=== PATIENT | female | born 1955 | race African-American/Black ===

== ENCOUNTER 2020-09-27 12:32 | Emergency (ER) | payer MEDICARE, SELFPAY ==
--- NOTE | 2020-09-27 12:40 | ED.SKABFB ---
HPI - Skin/Abscess/Foreign Bdy General Chief complaint: Skin/Abscess/Foreign Body Stated complaint: Rash on Neck Time Seen by Provider: 09/27/20 12:46 Source: patient and RN notes reviewed Mode of arrival: ambulatory Limitations: no limitations History of Present Illness HPI narrative: 65-year-old female presents to the [facility] with complaints of a rash left neck/ shoulder area since Sunday. This morning. Has used multiple treatments with no relief. Has had shingles in the past and states it feels very much the same. States the location prior on the same side down near her groin area. Denies fevers. Related Data Home Medications Medication Instructions Recorded Confirmed apixaban [Eliquis] 5 mg PO BID 09/27/20 09/27/20 celecoxib 200 mg PO DAILY 09/27/20 09/27/20 furosemide 20 mg PO DAILY PRN 09/27/20 09/27/20 omeprazole 20 mg PO DAILY 09/27/20 09/27/20 quinapril-hydrochlorothiazide 2 tablet PO DAILY 09/27/20 09/27/20 rosuvastatin 10 mg PO DAILY 09/27/20 09/27/20 Allergies Allergy/AdvReac Type Severity Reaction Status Date / Time No Known Allergies Allergy Verified 09/27/20 12:48 Review of Systems Review of Systems: Narrative: CONSTITUTIONAL: Denies fever, chills, or sweats. EYES: Denies visual changes, redness, or discharge. CARDIOVASCULAR: Denies chest pain, palpitations, or edema. RESPIRATORY: Denies cough or dyspnea. SKIN: Reports painful rash to the base of left neck into the clavicle area. Denies itching. MUSCULOSKELETAL: Denies back pain, joint pain, or myalgia. NEUROLOGIC: Denies headache, numbness, or weakness. PSYCHIATRIC: Denies anxiety or depression. All other systems reviewed are negative, except as documented in HPI. [facility] Past Medical History Medical History (Updated 09/27/20 @ 16:59 by Priya Goldberg) High cholesterol Hypertension Comments At the time of my signature, I reviewed and agree with the nursing past medical, surgical, social, and family history. There is no relevant family history pertinent to the patient complaint. Exam Narrative: Exam Narrative: GENERAL: This is a well-nourished, well-developed patient, in no apparent distress. HEAD: normocephalic, atraumatic. EYES: PERRL. Sclera clear/white. Vision is grossly intact. EARS: External ears normal NECK: Neck supple, non-tender without lymphadenopathy, masses or thyromegaly. CARDIOVASCULAR: Regular rate and rhythm without murmurs, gallops, or rubs. RESPIRATORY: Clear to auscultation. Breath sounds equal bilaterally. No wheezes, rales, or rhonchi. GASTROINTESTINAL: Abdomen soft, non-tender, nondistended. Bowel sounds are active. No hepato-splenomegaly, or palpable masses. No guarding. SKIN: warm, intact with blistery lesions/ rash. Otherwise good texture and turgor. NEURO: awake, alert, and oriented to person, place and time. There were no obvious focal neurologic abnormalities. EXTREMITIES: No joint tenderness, effusion, or edema noted. BACK: Nontender without deformity. Skin: Full body images: 1. Raised blistery rash patient describes it as painful Course Vital Signs Vital signs: Vital Signs Temperature 97.5 F L 09/27/20 12:54 Pulse Rate 67 09/27/20 12:54 Respiratory Rate 18 09/27/20 12:54 Blood Pressure 149/69 H 09/27/20 12:54 Pulse Oximetry 100 09/27/20 12:54 Temperature 97.5 F L 09/27/20 12:54 Pulse Rate 67 09/27/20 12:54 Respiratory Rate 18 09/27/20 12:54 Blood Pressure 149/69 H 09/27/20 12:54 Pulse Oximetry 100 09/27/20 12:54 Reviewed MDM - Skin/Abscess/Foreign Bdy MDM Narrative Medical decision making narrative: Discharge instructions reviewed with patient, as well as provided in writing per nursing staff. The instructions also include specific and strict return/GO TO THE ER as well as f/u information. All questions have been answered, and the patient deny any further questions with discharge and discharge plan. Differential Diagnosis Differential diagnosis: Like
[2020-09-27 12:54] VITALS: BP 149/69; PULSE 67; RESP 18; TEMP 36.4; O2SAT 100
== END 2020-09-27 13:02 | disposition home or self-care (01) ==
PROVIDERS: Emergency Provider Nurse Practitioner
DX: B02.9 Zoster without complications (principal); E78.00 Pure hypercholesterolemia, unspecified; I10 Essential (primary) hypertension; Z86.718 Personal history of other venous thrombosis and embolism; M19.90 Unspecified osteoarthritis, unspecified site
CPT/HCPCS: 99213; G0463

== ENCOUNTER 2022-01-10 14:09 | Emergency (ER) | payer MEDICARE, SELFPAY ==
--- NOTE | 2022-01-10 14:12 | ED.SKABFB ---
HPI - Skin/Abscess/Foreign Bdy General Chief complaint: Skin/Abscess/Foreign Body Stated complaint: Insect Bite on Leg Time Seen by Provider: 01/10/22 15:02 Source: patient and RN notes reviewed Mode of arrival: ambulatory Limitations: no limitations History of Present Illness HPI narrative: 66-year-old female presents with concern for possible insect bite to her calf. She reports 9 days ago she noticed an itchy area on her right inner calf. She reports she has been using anti-itch cream, poison will cream without relief. Reports the area is gotten slightly larger. She reports it feels numb surrounding the area. She did not see a bug bite her, she did not pull a tick out of her skin. She denies general malaise, swollen lips, swollen tongue, trouble breathing. MD complaint: rash Related Data Home Medications Medication Instructions Recorded Confirmed apixaban 5 mg tablet (Eliquis) 5 mg PO BID 09/27/20 01/10/22 celecoxib 200 mg capsule 200 mg PO DAILY 09/27/20 01/10/22 furosemide 20 mg tablet 20 mg PO DAILY PRN Edema 09/27/20 01/10/22 omeprazole 20 mg capsule,delayed 20 mg PO DAILY 09/27/20 01/10/22 release quinapril 20 2 tablet PO DAILY 09/27/20 01/10/22 mg-hydrochlorothiazide 12.5 mg tablet rosuvastatin 10 mg tablet 10 mg PO DAILY 09/27/20 01/10/22 Allergies Allergy/AdvReac Type Severity Reaction Status Date / Time No Known Allergies Allergy Verified 01/10/22 15:04 Review of Systems Review of Systems: CONSTITUTIONAL: Denies malaise, chills, sweats, or fever. EYES: Denies redness, or discharge. ENT: Denies rhinorrhea, congestion, swollen lips, swollen tongue CARDIOVASCULAR: Denies chest pain, palpitations, or edema. RESPIRATORY: Denies cough or dyspnea. SKIN: Reports itchy patch on her right inner lower leg MUSCULOSKELETAL: Denies joint pain or myalgia. NEUROLOGIC: Denies headache. All systems reviewed & are unremarkable except as noted in HPI and below [facility] Past Medical History Medical History (Updated 01/10/22 @ 15:14 by Priya Silva NP) High cholesterol Hypertension Comments At time of signature, agree with nursing past medical, surgical, social and family history. There is no relevant family history pertinent to the presenting complaint Exam Narrative: GENERAL: Well-appearing, well-nourished, and in no acute distress. HEAD: Normocephalic, atraumatic. EYES: PERRLA, conjunctivae clear, and EOMI. ENT: Mucous membranes moist. Oropharynx without edema, erythema or lesions. NECK: Supple. No lymphadenopathy CHEST: Clear to auscultation. No respiratory distress. HEART: Regular rate and rhythm. SKIN: Warm, dry. 2.5 cm patch of raised erythematous papules without surrounding erythema, edema, induration, no fluctuation, no scabs or open skin noted NEURO: Alert and oriented x3. PSYCH: Normal mood and affect Course Course Emergency Course: Patient is aware of diagnosis, understands and agrees to treatment plan. Anticipatory guidance given. Patient agrees to follow-up as directed and is aware of reasons to seek care at the emergency department. Portions of this record may have been created with voice recognition software Level of Care: Express Care Visit Vital Signs Vital signs: Reviewed. MDM - Skin/Abscess/Foreign Bdy MDM Narrative Medical decision making narrative: Does not appear at this time to be erythema multiforme, bullous, SJS, TEN; no evidence at this time to suggest RMSF, endocarditis or Lyme disease; patient looks well, nontoxic and is tolerating oral intake; no neurologic signs or symptoms; no headache, photophobia or neck pain; afebrile; appropriate for initial outpatient treatment; discussed the importance of follow-up, patient agrees; question, viral exanthema, contact dermatitis, allergic dermatitis, eczema, urticaria, tinea, insect bite, spider bite. No soft palate or uvula edema, no tongue, lip edema or other mucosal involvement, no respiratory compromise, no stridor, no
[2022-01-10 15:00] VITALS: BP 136/71; PULSE 56; RESP 20; TEMP 36.4; O2SAT 100
== END 2022-01-10 15:18 | disposition home or self-care (01) ==
PROVIDERS: Emergency Provider Nurse Practitioner
DX: R21 Rash and other nonspecific skin eruption (principal); I10 Essential (primary) hypertension; Z79.01 Long term (current) use of anticoagulants
CPT/HCPCS: 99213; G0463

== ENCOUNTER 2024-03-11 16:08 | Outpatient (CLI) | payer OTHER, SELFPAY ==
--- NOTE | ~2024-03-11 | XR_ITS ---
EXAMINATION: XR hand BI arthritis min 3V DATE: 03/11/2024 16:27 INDICATION: Bilateral primary osteoarthritis of first carpometacarpal joint. TECHNIQUE: 4 views of right hand 4 views of left hand on a total of 7 radiographs were obtained. COMPARISON: None. FINDINGS: RIGHT HAND: Scapholunate dissociation is noted. There is volar tilt of lunate, consistent with volar intercalated segmental instability (VISI). There is moderate osteoarthritis of distal radioulnar join t and radiolunate joint. There is severe osteoarthritis of first carpometacarpal joint and mild osteo arthritis of most of the metacarpophalangeal joints and interphalangeal joints. There is a screw in f ifth middle phalanx. LEFT HAND: Bone alignment is normal. No fracture. There is moderate osteoarthritis of first carpometa carpal joint and mild osteoarthritis of most of the metacarpophalangeal joints and interphalangeal joshua ints. IMPRESSION: 1. Polyarticular osteoarthritis. 2. Right-sided scapholunate dissociation. Reviewed, dictated and finalized at location A.
== END 2024-03-11 16:09 | disposition home or self-care (01) ==
PROVIDERS: PCP Family Medicine; Visit Provider Plastic Surgery
DX: M19.041 Primary osteoarthritis, right hand (principal); M19.042 Primary osteoarthritis, left hand
CPT/HCPCS: 73130

== ENCOUNTER 2024-03-20 11:39 | Outpatient (CLI) | payer OTHER, SELFPAY ==
[2024-03-20 18:54] LABS: Basophils Percent Auto 0.8 % (0.2-1.2); Eosinophils Absolute Auto 0.1 K/mm3 (0-0.3); Hematocrit 41.2 % (37.0-47.0); Hemoglobin 12.7 g/dL (12.0-15.0); Immature Granulocyte Absolute 0.01 K/mm3 (0.00-0.031); Immature Granulocyte Percent A 0.2 % (0-0.5); Lymphocytes Absolute Auto 1.71 K/mm3 (0.9-3.2); Lymphocytes Percent Auto 34.7 % (18.3-44.2); Mean Corpuscular HGB Conc 30.8 g/dl (32-36); Mean Corpuscular Hemoglobin 29.9 pg (26-34); Mean Corpuscular Volume 96.9 fl (80-100); Mean Platelet Volume 11.7 fl (7.4-10.4); Monocytes Absolute Auto 0.6 K/mm3 (0.1-0.6); Monocytes Percent Auto 12.8 % (2.6-8.5); Neutrophils Absolute Auto 2.4 K/mm3 (1.3-6.7); Neutrophils Percent Auto 49.5 % (45.5-73.1); Platelet Count Result 219 k/mm3 (150-375); Red Blood Count 4.25 M/mm3 (4.2-5.4); Red Cell Distribution Width 14.7 % (11.5-14.5); White Blood Count 4.9 K/mm3 (4.5-10.0)
[2024-03-20 19:04] LABS: Alanine Aminotransferase 14 U/L (6-35); Alkaline Phosphatase 78 U/L (38-126); Anion Gap 6 mmol/L (4-12); Aspartate Amino Transferase 39 U/L (14-36); Bilirubin,Total 0.6 mg/dL (0.2-1.3); Blood Urea Nitrogen 23 mg/dL (7-17); Calcium 9.2 mg/dL (8.4-10.2); Carbon Dioxide 33 mmol/L (22-30); Chloride 101 mmol/L (98-107); Cholesterol 153 mg/dL (0-200); Estimated Glomerular Filt Rate 54; Glucose 124 mg/dL (65-110); HDL Direct 49 mg/dL; Potassium 3.9 mmol/L (3.4-5.0); Sodium 140 mmol/L (137-145); Triglycerides 74 mg/dL (<150)
[2024-03-20 19:15] LABS: LDL Cholesterol Direct 75 mg/dL
== END 2024-03-20 11:40 | disposition home or self-care (01) ==
LOC: ANHGOSHLAB 11:40
PROVIDERS: PCP Family Medicine; Visit Provider Clinical Nurse Specialist
DX: M79.643 Pain in unspecified hand (principal); G89.29 Other chronic pain; I10 Essential (primary) hypertension; E78.00 Pure hypercholesterolemia, unspecified; I50.9 Heart failure, unspecified; I89.0 Lymphedema, not elsewhere classified
CPT/HCPCS: 36415; 80053; 80061; 85025

== ENCOUNTER 2024-08-26 09:52 | Outpatient (CLI) | payer OTHER, SELFPAY ==
--- OUTSIDE RECORDS SUMMARY | 2024-08-26 10:07 | XMS_ITS | Encounter Summary ---
Author Organization [facility] Address [address] [facility] [place] [address] Care Team Providers Care Bank Teller Machine Mechanic Name Role Phone Adelso Padilla MD Primary Care Provider + Encounter Details Date Type Department Care Team (Late st Contact Info) Description 08/16/2023 Walk-In Visit [facility] - Orthopedic Surgery [address] [place] [address] Moises Olivarez, DO [address] [id number] Social History Tobacco Use Types Packs/Day Years Used Date Smoking Tobacco: Never Smokeless Tobacco: Never Alcohol Use Standard Drinks/Week Comments No 0 (1 standard drink = 0.6 oz pur e alcohol) PHQ-2 Answer Date Recorded Patient Health Questionnaire-2 Score 0 07/27/2023 Sex and Gender Information Value Date Recorded Sex Assigned at Not on file Gender Identity Not on file Sexual Orientation Not on file documented as of this encounter Functional Status Functional Status Response Date of Assess ment Is person deaf or have serious hearing difficult y? No 05/20/2015 Is person blind or have serious difficulty seein g? No 05/20/2015 Does person have serious dif ficulty walking/climbing stairs? No 05/20/2015 Does person have difficulty dressing/bathing? No 05/20/2015 Does person have difficulty doing errands alone? No 05/20/2015 Cognitive Status Response Date of Assessm ent Does person have difficulty concentrating/remembering/making decisions? No 05/20/2015 documented as of this encounter Plan of Treatment Upcoming Encounters Date Type Department Care Team (Late st Contact Info) Description 06/12/2025 10:45 AM MANAGER NUCLEAR Office Visit [facility] - [facility] [address] [place] [address] Moises Olivarez, [address] [facility] [address] [place] [address] documented as of this encounter Visit Diagnoses Not on filedocumented in this encounter Care Teams Bank Teller Machine Mechanic Relationship Specialty Start Date End Date Adelso Padilla MD [address] [place] [address] DR Garcia [facility] [address] [place] [address] PCP - General Internal Medicine 05/08/23 documented as of this encounter
--- OUTSIDE RECORDS SUMMARY | 2024-08-26 10:07 | XMS_ITS | Clinical Summary ---
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 Gender Identity Not on file Sexual Orientation Not on file Plan of Treatment Health Maintenance Due Date Last Done Comments DEXA Bone Density 1955 Hepatitis C Virus (HCV) Screening 1955 Mammogram 1955 TdaP Immunization 1955 Colonoscopy 2000 Colorectal Cancer Screening 2000 Cologuard 2005 Immunochemical Fecal Occult Blood 2005 Pneumococcal Immunization (50+ years) (1 of 1 - PCV) 2005 Influenza Immunization (#1) 2024 04/07/2021, 1 SARS-COV-2 Immunization (2023- season) 2024 04/22/2021, 09/10/2020, 09/10/2020, Additional history exists Respiratory Syncytial Virus (RSV) Immunization (Adult) (1 - 1-dose 75+ series) 2030 Zoster Immunization Completed 01/24/2018, 8 Hepatitis B Immunization Aged Out No longer eligible based on patient's age to complete this topic Meningococcal Immunization (ACWY) Aged Out No longer eligible based on patient's age to complete this topic Rotavirus Immunization Aged Out No lo nger eligible based on patient's age to complete this topic
--- OUTSIDE RECORDS SUMMARY | 2024-08-26 10:07 | XMS_ITS | Clinical Summary ---
Author Organization [facility] Address [address] [place] [address] Care Team Providers Care Warehouse Packer Name Role Phone Adelso Padilla MD Primary Care Provider + Source Comments [facility],non-owned Affiliates and Associated Physician Practices is amultiple site organization consisting of ambulatory clinics and hospital sitesin [place], [place], [place] and [place]. This disclosure is being madepursuant to the Care Everywhere program and may not contain all information available regarding this patient. Last updated 18.[facility] Allergies No known active allergies Medications * Be aware that medications may not be up to date on this document. Alwaysverify current medications with the patient. Medication Sig Dispensed Refills Start Date End Date Status rosuvastatin (CRESTOR) 10 MG tablet Take 1 (one) tablet by mouth once daily 05/06/2020 Active Vitamin D, Ergocalciferol, 57126 units CAPS Active potassium chloride 20 MEQ/15ML (10%) solution Take 1 mL by mouth once daily 12/19/2022 Active losartan (Cozaar) 25 MG tablet Take 1 (one) tablet by mouth once daily 12/19/2022 Active furosemide (Lasix) 40 MG tablet Take 1 (one) tablet by mouth 2 times daily 01/18/2023 Active spironolactone (Aldactone) 50 MG tablet Take 1 (one) tablet by mouth once daily 11/21/2022 Active aspirin (Aspirin) 81 MG chew tabletIndications :DVT ppx Take 1 (one) tablet by mouth 2 times daily Reasons: DVT ppx 70 tablet 05/29/2023 Active acetaminophen (Tylenol) 500 MG tablet Take 2 (two) tablets by mouth every 6 hours as needed for Pain (mild pain) Maximum allowable Acetaminophen amount = 4 Grams (4000 mg) / 24 hours. 28 tablet 05/29/2023 Active pregabalin (Lyrica) 50 MG capsule Take 1 (one) capsule by mouth 2 times daily for 30 days 60 capsule 05/29/2023 Active Klor-Con M20 20 MEQ tablet Take 1 (one) tablet by mouth once daily 08/02/2023 Active apixaban (Eliquis) 5 MG tablet Take 1 (one) tablet by mouth 2 times daily 06/11/2024 Active fluticasone propionate (Flonase) 50 MCG/ACT nasal spray [place] 1 (one) spray into the nose once daily as needed Active vitamin D3 (Cholecalciferol) 125 MCG (5000 UT) capsule Take 1 (one) capsule by mouth once daily Active meloxicam (Mobic) 7.5 MG tablet Take 1 (one) tablet by mouth once daily as needed 03/11/2024 Active metoprolol succinate XL 24hr (Toprol XL) 25 MG tablet Take 1 (one) tablet by mouth 2 times daily 06/11/2024 Active FREESTYLE LITE STRIPS test strip USE TO TEST ONCE DAILY 03/19/2024 Active Active Problems Problem Noted Date Diagnosed Date Primary osteoarthritis of left knee 08/23/2019 Acute low back pain with right-sided sciatica Trochanteric bursitis, left hip 08/05/2017 Status post total right knee replacement 016 Encounters Date Type Department Care Team Description 06/13/2024 10:45 AM ELECTRICAL MECHANICAL TECHNICIAN Office Visit [facility] - Orthopedic Surgery [facility] [place] [phone] Moises Olivarez, DO S/P TKR (total knee replacement), left (Primary Dx) 06/13/2024 10:13 AM ELECTRICAL MECHANICAL TECHNICIAN - 06/13/2024 11:59 PM ELECTRICAL MECHANICAL TECHNICIAN Hospital Encounter [facility] - Orthopedics [address] [place] [phone] Moises Olivarez, DO Discharge Disposition: Home or Self Care 06/13/2024 Travel 06/09/2024 Orders Only [facility] - Orthopedic Surgery [address] [place] [phone] Moises Olivarez, DO S/P TKR (total knee replacement), left from Last 3 Months Immunizations Name Administration Dates Next Due Iam Vásquez primary monoval ent 12+ yr 0.3mL Purple cap 09/10/2020,08/21/2020 INFLUENZA VACCINE, QUADR. (F LUZONE; FLULAVAL; FLUARIX; AFLURIA QUADRIVALENT; 6MO+), 0.5 ML (IIV4) 04/08/2020,07/29/2019,05/21/2015 PNEUMOCOCCAL PPSV23 03/31/2019 TDAP (7yrs+) 03/31/2019 Zoster Hzv Vacc Recombinant Inj Im 01/24/2018, Social History Tobacco Use Types Packs/Day Years Used Date Smoking Tobacco: Never Smokeless Tobacco: Never Tobacco Cessation:Counseling Given: Yes Alcohol Use Standard Drinks/Week Comments No 0 (1 standard drink = 0.6 oz pur e alcohol) PHQ-2 Answer Date Recorded Patient Health Questionnaire-2 Score 0 06/13/2024 Sex and Gender Information Value Date Recorded Sex Assigned at Not on file Gender Identity Not on file Sexual Orientation Not on file Last Filed Vital Signs Vital Sign Reading Time Taken Comments Blood Pressure 141/75 05/31/2023 9:06 AM ELECTRICAL MECHANICAL TECHNICIAN Pulse 92 05/31/2023 9:06 AM ELECTRICAL MECHANICAL TECHNICIAN Temperature 37.1 C (98.8 F) 05/31/2023 9:06 AM ELECTRICAL MECHANICAL TECHNICIAN Respiratory Rate 18 05/31/2023 5:50 AM ELECTRICAL MECHANICAL TECHNICIAN Oxygen Saturation 93% 05/31/2023 9:06 AM ELECTRICAL MECHANICAL TECHNICIAN Inhaled Oxygen Concentration - - Weight 101.2 kg (223 lb) 05/29/2023 11:50 AM ELECTRICAL MECHANICAL TECHNICIAN Height 165.1 cm (5' 5 ) 05/29/2023 11:50 AM ELECTRICAL MECHANICAL TECHNICIAN Body Mass Index 37.11 05/29/2023 11:50 AM ELECTRICAL MECHANICAL TECHNICIAN Plan of Treatment Upcoming Encounters Date Type Department Care Team (Late st Contact Info) Description 06/12/2025 10:45 AM ELECTRICAL MECHANICAL TECHNICIAN Office Visit [facility] - Orthopedic Surgery [address] [place] [phone] Moises Olivarez, DO [address] [facility] [address] [id number] Health Maintenance Due Date Last Done Comments COLOGUARD (AGES 45-75) - COLON CA SCREENING [address] COLONOGRAPHY - COLON CA SCREENING 1955 FIT - COLON CA SCREENING 1955 FLEX SIG - COLON CA SCREENING 1955 MEDICARE AWV 12 MONTHS 1955 Opioid Medication Agreement - Annual 1955 HEPATITIS C SCREENING 04/10/1973 PNEUMOCOCCAL VACCINE 50+ (2 of 2 - PCV) 03/31/2020 03/31/2019 COVID-19 VACCINE (4 - 2023- season) 2024 04/22/2021, 09/10/2020, 08/21/2020 INFLUENZA VACCINE (#1) 2024 , 07/29/2019, 05/21/2015 DEPRESSION SCREENING 07/09/2024 07/27/2023 MAMMOGRAM 11/13/2025 11/14/2023, 05/0 02/2024, 09/25/2022, Additional history exists DTAP/TDAP/TD VACCINES (2 - Td or Tdap) 03/31/2029 03/31/2019 COLONOSCOPY - COLON CA SCREENING 06/03/2029 06/03/2019 Colorectal Cancer Screening 06/03/2029 Respiratory Syncytial Virus (RSV) Vaccine Pt: or over 60 yrs (1 - 1-dose 75+ series) 2030 ZOSTER VACCINE Completed 01/24/2018, 09/18/2017 BONE DENSITY TESTING Completed 04/04/2021 HEPATITIS B VACCINE Aged Out No longe r eligible based on patient's age to complete this topic HIB VACCINE Aged Out No longer eligi ble based on patient's age to complete this topic HPV VACCINE Aged Out No longer eligi ble based on patient's age to complete this topic MENINGOCOCCAL (Group B) VACCINE Aged Out No longer eligible based on patient's age to complete this topic MENINGOCOCCAL VACCINE Aged Out No alvaro james eligible based on patient's age to complete this topic Medical Devices Implanted Type Area Cost Accounting Manager Device Identifier Shelf Expiration Date Model / Serial / Lot Reza Bone Palacos R Implanted:Qty : 2 on 05/20/2015 by Gentry Melendez MD at [facility] Right: Knee [employer] 09/06/2019 [id number] / / [id number] Sz 3 Rt Tibial Baseplate Implanted:Qty : 1 on 05/20/2015 by Gentry Melendez MD at [facility] Right: Knee [employer] 12/07/2024 [id number] / / [id number] 32mm Patellar Component Implanted:Qty : 1 on 05/20/2015 by Gentry Melendez MD at [facility] Right: Knee [employer] 01/26/2025 [id number] / / [id number] Sz 5 Rt Femoral Component Implanted:Qty : 1 on 05/20/2015 by Gentry Melendez MD at [facility] Right: Knee [employer] 03/02/2025 [id number] / / [id number] Rt Sz 3/4 9mm Articular Insert Implanted:Qty : 1 on 05/20/2015 by Gentry Melendez MD at [facility] Right: Knee [employer] 02/22/2025 [id number] / / [id number] Spiked Keel Left Implanted:Qty : 1 on 05/29/2023 by Moises Olivarez DO at [facility] Left: Knee [employer] [id number] 02/04/2033 [id number] / / [id number] Cruciate Retaining Left Implanted:Qty : 1 on 05/29/2023 by Moises Olivarez DO at [facility] Left: Knee [employer] [id number] 02/19/2033 [id number] / / [id number] Medial Congruent Articular Surface Implanted:Qty : 1 [facility]/29/[facility]: Knee [employer] [id number] 03/13/2028 [id number] / / [id number] Explanted Type Area Cost Accounting Manager Device Identifier Shelf Expiration Date Model / Serial / Lot Rt Sz F5/T4 Vis Cut Guide Explanted:Qty: 1 on 05/20/2015 at [facility] Right: Knee [employer] 08/04/2015 [id number] / / [id number] Procedures Procedure Name Priority Date/Time Associated Diagnosis Comments XR KNEE LEFT 3VW Routine 06/13/2024 10:2 0 AM ELECTRICAL MECHANICAL TECHNICIAN S/P TKR (total knee replacement), left from Last 3 Months Results * XR Knee Left 3Vw (06/13/2024 10:20 AM ELECTRICAL MECHANICAL TECHNICIAN) Anatomical Region Laterality Modality Lower Extremity Radiographic Kathi ging 06/13/2024 12:5 0 PM ELECTRICAL MECHANICAL TECHNICIAN Narrative 06/13/2024 12:51 PM ELECTRICAL MECHANICAL TECHNICIAN PROCEDURE: XR KNEE LEFT 3VW DATE/TIME OF EXAM: 06/13/2024 10:21 AM CLINICAL INFORMATION: None relevant/not provided if blank. Indication: Z96.652: Presence of left artificial knee joint XR KNEE LEFT 3VW, AP, LATERAL, SUNRISE AND TUNNEL VIEWS. HISTORY: Z96.652: Presence of left artificial knee joint COMPARISON: 09/07/2023 FINDINGS/IMPRESSION: 1. No acute fracture, dislocation, suspicious intrinsic bony lesions, or suspicious soft tissue abnormalities are identified. 2. Tibiofemoral arthroplasty changes are stable and remain uncomplicated. Alignment is anatomic. 3. There is no tilting or subluxation of patella on sunrise view. 4. There is no suprapatellar joint effusion, patella daniel or patellar enthesopathy on lateral view. 5. There are no significant interval changes since the prior study. > Interpreting Provider: Alonso Rosario MD on 06/13/2024 12:51 PM Procedure Note Alonso Rosario MD - 06/13/2024 PROCEDURE: XR KNEE LEFT 3VW DATE/TIME OF EXAM: 06/13/2024 10:21 AM CLINICAL INFORMATION: None relevant/not provided if blank. Indication: Z96.652: Presence of left artificial knee joint XR KNEE LEFT 3VW, AP, LATERAL, SUNRISE AND TUNNEL VIEWS. HISTORY: Z96.652: Presence of left artificial knee joint COMPARISON: 09/07/2023 FINDINGS/IMPRESSION: 1. No acute fracture, dislocation, suspicious intrinsic bony lesions, or suspicious soft tissue abnormalities are identified. 2. Tibiofemoral arthroplasty changes are stable and remainuncomplicated. Alignment is anatomic. 3. There is no tilting or subluxation of patella on sunrise view. 4. There is no suprapatellar joint effusion, patella daniel or patellar enthesopathy on lateral view. 5. There are no significant interval changes since the prior study. > Interpreting Provider: Alonso Rosario MD on 06/13/2024 12:51 PM Moises Olivarez DO DIAGNOSTIC IMAGI NG ORDERABLES from Last 3 Months Advance Directives Documents on File Type Date Recorded Patient Cash Register Servicer Expl anation Adv Directive/Living Will/POA 05/24/2015 10:36 PM * Full Code (Latest Code Status on File) Date Activated Date Inactivated Comments 05/29/2023 6:22 PM 05/31/2023 12:01 PM * Full Code Date Activated Date Inactivated Comments 05/20/2015 8:24 PM 05/23/2015 2:18 PM Care Teams Warehouse Packer Relationship Specialty Start Date End Date Adelso Padilla MD [address] [place] [address] DR Radha BAGLEY [address] [place] [address], [place] [address] PCP - General Internal Medicine 05/08/23
--- OUTSIDE RECORDS SUMMARY | 2024-08-26 10:07 | XMS_ITS | Referral Summary ---
Author Organization [facility] Address [address] [place] [address] Care Team Providers Care Public Service Representative Name Role Phone Adelso Padilla MD Primary Care Provider + Source Comments [facility],non-owned Affiliates and Associated Physician Practices is amultiple site organization consisting of ambulatory clinics and hospital sitesin [place], [place], [place] and [place]. This disclosure is being madepursuant to the Care Everywhere program and may not contain all information available regarding this patient. Last updated 18.[facility] Encounters Date Type Department Care Team Description 06/13/2024 Travel 06/13/2024 10:13 AM INSURANCE CLAIMS SPECIALIST - 06/13/2024 11:59 PM INSURANCE CLAIMS SPECIALIST Hospital Encounter [facility] - Orthopedics [address] [place] [address], [facility] [address] [place] [phone] Moises Olivarez, DO Discharge Disposition: Home or Self Care 06/13/2024 10:45 AM INSURANCE CLAIMS SPECIALIST Office Visit [facility] - Orthopedic Surgery [address] [place] [phone] Moises Olivarez, DO S/P TKR (total knee replacement), left (Primary Dx) 06/09/2024 Orders Only [facility] - Orthopedic Surgery [address] [place] [phone] Moises Olivarez, DO S/P TKR (total knee replacement), left from Last 3 Months Allergies No known active allergies Medications * Be aware that medications may not be up to date on this document. Alwaysverify current medications with the patient. Medication Sig Dispensed Refills Start Date End Date Status rosuvastatin (CRESTOR) 10 MG tablet Take 1 (one) tablet by mouth once daily 05/06/2020 Active Vitamin D, Ergocalciferol, 74592 units CAPS Active potassium chloride 20 MEQ/15ML [...] fluticasone propionate (Flonase) 50 MCG/ACT nasal spray [place] 1 (one) spray into the nose once [...] Status post total right knee replacement 016 Immunizations Name Administration Dates Next Due Iam [...] Comments Blood Pressure 141/75 05/31/2023 9:06 AM INSURANCE CLAIMS SPECIALIST Pulse 92 05/31/2023 9:06 AM INSURANCE CLAIMS SPECIALIST Temperature 37.1 C (98.8 F) 05/31/2023 9:06 AM INSURANCE CLAIMS SPECIALIST Respiratory Rate 18 05/31/2023 5:50 AM INSURANCE CLAIMS SPECIALIST Oxygen Saturation 93% 05/31/2023 9:06 AM INSURANCE CLAIMS SPECIALIST Inhaled Oxygen Concentration - - Weight 101.2 kg (223 lb) 05/29/2023 11:50 AM INSURANCE CLAIMS SPECIALIST Height 165.1 cm (5' 5 ) 05/29/2023 11:50 AM INSURANCE CLAIMS SPECIALIST Body Mass Index 37.11 05/29/2023 11:50 AM INSURANCE CLAIMS SPECIALIST Functional Status Functional Status Response Date of [...] person have difficulty concentrating/remembering/making decisions? No 05/20/2015 Plan of Treatment Upcoming Encounters Date Type Department Care Team (Late st Contact Info) Description 06/12/2025 10:45 AM INSURANCE CLAIMS SPECIALIST Office Visit [facility] - Orthopedic Surgery [address] [place] [phone] Moises Olivarez, DO [address] [facility] [address] [place] [address] Medical Devices Implanted Type Area Stoker Erector And Servicer Device Identifier Shelf Expiration Date Model / Serial / Lot Reza Bone Palacos R Implanted:Qty : 2 on 05/20/2015 by Gentry Melendez MD at [facility][note 3] Right: Knee [employer] 09/06/2019 [id number] / / [id number] Sz 3 Rt Tibial Baseplate Implanted:Qty : 1 on 05/20/2015 by Gentry Melendez MD at [facility][note 3] Right: Knee [employer] 12/07/2024 [id number] / / [id number] 32mm Patellar Component Implanted:Qty : 1 on 05/20/2015 by Gentry Melendez MD at [facility][note 3] Right: Knee [employer] 01/26/2025 [id number] / / [id number] Sz 5 Rt Femoral Component Implanted:Qty : 1 on 05/20/2015 by Gentry Melendez MD at [facility][note 3] Right: Knee [employer] 03/02/2025 [id number] / / [id number] Rt Sz 3/4 9mm Articular Insert Implanted:Qty : 1 on 05/20/2015 by Gentry Melendez MD at [facility][note 3] Right: Knee [employer] 02/22/2025 [id number] / / [id number] Spiked Keel Left Implanted:Qty : 1 on 05/29/2023 by Moises Olivarez, DO at [facility] Left: Knee [employer] [id number] 02/04/2033 [id number] / / [id number] Cruciate Retaining Left Implanted:Qty : 1 on 05/29/2023 by Moises Olivarez, DO at [facility] Left: Knee [employer] [id number] 02/19/2033 [id number] / / [id number] Medial Congruent Articular Surface Implanted:Qty : 1 on 05/29/2023 by Moises Olivarez, DO at [facility] Left: Knee [employer] [id number] 03/13/2028 [id number] / / [id number] Explanted Type Area Stoker Erector And Servicer Device Identifier Shelf Expiration Date Model / Serial / Lot Rt Sz F5/T4 Vis Cut Guide Explanted:Qty: 1 on 05/20/2015 at [facility][note 3] Right: Knee [employer] 08/04/2015 [id number] / / [id number] Procedures Procedure Name Priority Date/Time Associated Diagnosis Comments XR KNEE LEFT 3VW Routine 06/13/2024 10:2 0 AM INSURANCE CLAIMS SPECIALIST S/P TKR (total knee replacement), left from Last 3 Months Results * XR Knee Left 3Vw (06/13/2024 10:20 AM INSURANCE CLAIMS SPECIALIST) Anatomical Region Laterality Modality Lower Extremity Radiographic Kathi ging 06/13/2024 12:5 0 PM INSURANCE CLAIMS SPECIALIST Narrative 06/13/2024 12:51 PM INSURANCE CLAIMS SPECIALIST PROCEDURE: XR KNEE LEFT 3VW DATE/TIME OF [...] Documents on File Type Date Recorded Patient Hospital Receptionist Expl anation Adv Directive/Living Will/POA 05/24/2015 10:36 PM * Full Code (Latest Code Status on File) Date Activated Date Inactivated Comments 05/29/2023 6:22 PM 05/31/2023 12:01 PM * Full Code Date Activated Date Inactivated Comments 05/20/2015 8:24 PM 05/23/2015 2:18 PM Care Teams Public Service Representative Relationship Specialty Start Date End Date Adelso Padilla MD [address] [place] [address] DR Radha BAGLEY [address] [place] [phone] PCP - General Internal Medicine 05/08/23
--- OUTSIDE RECORDS SUMMARY | 2024-08-26 10:07 | XMS_ITS | Patient Health Summary ---
Author Organization [facility] Address [address] [place] [address] Care Team Providers Care Build Engineer Name Role Phone Adelso Padilla MD Primary Care Provider + Note from [facility],non-owned Affiliates and Associated Physician Practices is amultiple site organization consisting of ambulatory clinics and hospital sitesin [place], [place], [place] and [place]. This disclosure is being madepursuant to the Care Everywhere program and may not contain all information available regarding this patient. Last updated 18.[facility] Allergies No known active allergies* Codeine(Nausea and/or Vomiting),Inactive * Hydrocodone-Acetaminophen(Nausea and/or Vomiting),Inactive * Oxycodone-Acetaminophen(Nausea and/or Vomiting),Inactive Medications * Be aware that medications may not be up to date on this document. Alwaysverify current medications with the patient. * rosuvastatin (CRESTOR) 10 MG tablet(Started 05/06/2020) Take 1 (one) tablet by mouth once daily * Vitamin D, Ergocalciferol, 78573 units CAPS * potassium chloride 20 MEQ/15ML (10%) solution(Started 12/19/2022) Take 1 mL by mouth once daily * losartan (Cozaar) 25 MG tablet(Started 12/19/2022) Take 1 (one) tablet by mouth once daily * furosemide (Lasix) 40 MG tablet(Started 01/18/2023) Take 1 (one) tablet by mouth 2 times daily * spironolactone (Aldactone) 50 MG tablet(Started 11/21/2022) Take 1 (one) tablet by mouth once daily * aspirin (Aspirin) 81 MG chew tablet(Started 05/29/2023) Take 1 (one) tablet by mouth 2 times daily Reasons: DVT ppx * acetaminophen (Tylenol) 500 MG tablet(Started 05/29/2023) Take 2 (two) tablets by mouth every 6 hours as needed for Pain (mild pain) Maximum allowable Acetaminophen amount = 4 Grams (4000 mg) / 24 hours. * pregabalin (Lyrica) 50 MG capsule(Started 05/29/2023) Take 1 (one) capsule by mouth 2 times daily for 30 days * Klor-Con M20 20 MEQ tablet(Started 08/02/2023) Take 1 (one) tablet by mouth once daily * apixaban (Eliquis) 5 MG tablet(Started 06/11/2024) Take 1 (one) tablet by mouth 2 times daily * fluticasone propionate (Flonase) 50 MCG/ACT nasal spray [place] 1 (one) spray into the nose once daily as needed * vitamin D3 (Cholecalciferol) 125 MCG (5000 UT) capsule Take 1 (one) capsule by mouth once daily * meloxicam (Mobic) 7.5 MG tablet(Started 03/11/2024) Take 1 (one) tablet by mouth once daily as needed * metoprolol succinate XL 24hr (Toprol XL) 25 MG tablet(Started 06/11/2024) Take 1 (one) tablet by mouth 2 times daily * FREESTYLE LITE STRIPS test strip(Started 03/19/2024) USE TO TEST ONCE DAILY Active Problems Problem Noted Date Diagnosed Date Primary osteoarthritis of left knee 08/23/2019 Acute low back pain with right-sided sciatica Trochanteric bursitis, left hip 08/05/2017 Status post total right knee replacement 016 Immunizations * Covid [email or web address] primary monovalent 12+ yr 0.3mL Purple cap(Given 09/10/2020, 08/21/2020) * INFLUENZA VACCINE, QUADR. (FLUZONE; FLULAVAL; FLUARIX; AFLURIA QUADRIVALENT; 6MO+), 0.5 ML (IIV4)(Given 04/08/2020, 07/29/2019, 05/21/2015) * PNEUMOCOCCAL PPSV23(Given 03/31/2019) * TDAP (7yrs+)(Given 03/31/2019) * Zoster Hzv Vacc Recombinant Inj Im(Given 01/24/2018, 09/18/2017) Social History Tobacco Use Types Packs/Day Years [...] Comments Blood Pressure 141/75 05/31/2023 9:06 AM [facility]IE[facility] OF PLANNING Pulse 92 05/31/2023 9:06 AM [employer] OF PLANNING Temperature 37.1 C (98.8 F) 05/31/2023 9:06 AM [facility] OF PLANNING Respiratory Rate 18 05/31/2023 5:50 AM [facility] OF PLANNING Oxygen Saturation 93% 05/31/2023 9:06 AM [employer] OF PLANNING Inhaled Oxygen Concentration - - Weight 101.2 kg (223 lb) 05/29/2023 11:50 AM [employer] OF PLANNING Height 165.1 cm (5' 5 ) 05/29/2023 11:50 AM [facility] OF PLANNING Body Mass Index 37.11 05/29/2023 11:50 AM [facility] OF PLANNING Medical Devices Implanted Type Area Licensing Manager Device Identifier Shelf Expiration Date Model / Serial / Lot Reza Bone Palacos R Implanted:Qty : 2 on 05/20/2015 by Gentry Melendez MD at [facility] Right: Knee [employer] 09/06/2019 [id number] / / [id number] 3 Rt Tibial Baseplate Implanted:Qty : 1 on 05/20/2015 by Gentry Melendez MD at [facility] Right: Knee [employer] 12/07/2024 [id number] / / [id number] 32mm Patellar Component Implanted:Qty : 1 on 05/20/2015 by Gentry Melendez MD at [facility] Right: Knee [employer] 01/26/2025 [id number] / / [id number] Sz 5 Rt Femoral Component Implanted:Qty : 1 on 05/20/2015 by Gentry Melendez MD at [facility] Right: Knee [employer] 03/02/2025 [id number] / / [id number] Rt Sz 3/4 9mm Articular Insert Implanted:Qty : 1 on 05/20/2015 by Gentry Melendez MD at [facility] Right: Knee [employer] 02/22/2025 [id number] / / [id number] Spiked Keel Left Implanted:Qty : 1 on 05/29/2023 by Moises Olivarez DO at [facility] Left: Knee [employer] [id number] 02/04/2033 [id number] / / [id number] Cruciate Retaining Left Implanted:Qty : 1 on 05/29/2023 by Moises Olivarez DO at [facility] Left: Knee [employer] [id number] 02/19/2033 [id number] / / [id number] Medial Congruent Articular Surface Implanted:Qty : 1 on 05/29/2023 by Moises Olivarez DO at [facility] Left: Knee [employer] [id number] 03/13/2028 [id number] / / [id number] Explanted Type Area Licensing Manager Device Identifier Shelf Expiration Date Model / Serial / Lot Rt Sz F5/T4 Vis Cut Guide Explanted:Qty: 1 on 05/20/2015 at [facility] Right: Knee [employer] 08/04/2015 [id number] / / [id number] Procedures * XR KNEE LEFT 3VW(Performed 06/13/2024) Performed for S/P TKR (total knee replacement), left * XR KNEE LEFT 3VW(Performed 09/07/2023) Performed for Status post total left knee replacement * XR KNEE LEFT 3VW(Performed 07/27/2023) Performed for Status post total left knee replacement * CARDIAC RHYTHM STRIP ORDER(Performed 06/04/2023) * IMAGING/RADIOLOGY/XRAY RESULTS ORDER(Performed 06/04/2023) * HGB HCT PANEL(Performed 05/30/2023) Performed for Primary osteoarthritis of left knee * BASIC METABOLIC PANEL (CALCIUM TOTAL)(Performed 05/30/2023) Performed for Primary osteoarthritis of left knee * XR KNEE LEFT 2VW OR LESS(Performed 05/29/2023) Performed for Primary osteoarthritis of left knee * NEURAXIAL BLOCK(Performed 05/29/2023) * MI TOTAL KNEE REPLACEMENT(Performed 05/29/2023) Performed for Diagnosis unknown * GLUCOSE - POINT OF CARE(Performed 05/29/2023) * TYPE + SCREEN PANEL(Performed 05/29/2023) * APHERESIS/TRANSFUSION ORDER(Performed 05/22/2023) * C-REACTIVE PROTEIN(Performed 05/15/2023) Performed for Abnormal blood chemistry * ERYTHROCYTE SEDIMENTATION RATE(Performed 05/15/2023) Performed for Abnormal blood chemistry * TYPE + SCREEN PANEL(Performed 05/08/2023) Performed for Preoperative examination * ERYTHROCYTE SEDIMENTATION RATE(Performed 05/08/2023) Performed for Preoperative examination * C-REACTIVE PROTEIN(Performed 05/08/2023) Performed for Preoperative examination * HEMOGLOBIN A1C(Performed 05/08/2023) Performed for Preoperative examination * FRUCTOSAMINE(Performed 05/08/2023) Performed for Preoperative examination * URINALYSIS REFLEX MICROSCOPIC REFLEX CULTURE(Performed 05/08/2023) Performed for Preoperative examination * PT-INR(Performed 05/08/2023) Performed for Preoperative examination * TRANSFERRIN(Performed 05/08/2023) Performed for Preoperative examination * COMPREHENSIVE METABOLIC PANEL(Performed 05/08/2023) Performed for Preoperative examination * CBC W AUTO DIFFERENTIAL(Performed 05/08/2023) Performed for Preoperative examination * CULTURE MSSA/MRSA(Performed 05/08/2023) Performed for Preoperative examination * XR KNEE LEFT 4VW OR MORE(Performed 02/16/2023) Performed for Primary osteoarthritis of left knee * MI DRAIN/INJECT LARGE JOINT/BURSA(Performed 01/25/2023) Performed for Primary osteoarthritis of left knee * MI DRAIN/INJECT LARGE JOINT/BURSA(Performed 10/24/2022) Performed for Primary osteoarthritis of left knee * MI DRAIN/INJECT LARGE JOINT/BURSA(Performed 07/19/2022) Performed for Primary osteoarthritis of left knee * MI DRAIN/INJECT LARGE JOINT/BURSA(Performed 04/18/2022) Performed for Primary osteoarthritis of left knee * MI DRAIN/INJECT LARGE JOINT/BURSA(Performed 01/12/2022) Performed for Primary osteoarthritis of left knee * MI DRAIN/INJECT LARGE JOINT/BURSA(Performed 12/13/2021) Performed for Primary osteoarthritis of left knee * MI DRAIN/INJECT LARGE JOINT/BURSA(Performed 10/11/2021) Performed for Primary osteoarthritis of left knee * XR KNEE LEFT 4VW OR MORE(Performed 10/11/2021) Performed for Primary osteoarthritis of left knee * MI DRAIN/INJECT LARGE JOINT/BURSA(Performed 07/05/2021) Performed for Primary osteoarthritis of left knee * MI DRAIN/INJECT LARGE JOINT/BURSA(Performed 05/24/2020) Performed for Primary osteoarthritis of left knee * XR KNEE BILAT 3VW(Performed 08/08/2019) Performed for Pain in both knees, unspecified chronicity * XR KNEE RIGHT 3VW(Performed 01/04/2018) Performed for Chronic pain of right knee * XR KNEE RIGHT 3VW(Performed 05/26/2016) Performed for Status post total left knee replacement * IMAGING/RADIOLOGY/XRAY RESULTS ORDER(Performed 05/25/2015) * CARDIAC RHYTHM STRIP ORDER(Performed 05/25/2015) * HGB HCT PANEL(Performed 05/22/2015) * BASIC METABOLIC PANEL (CALCIUM TOTAL)(Performed 05/22/2015) * HGB HCT PANEL(Performed 05/21/2015) * PULSE OXIMETRY, CONTINUOUS(Performed 05/20/2015) * OXYGEN(Performed 05/20/2015) * URINALYSIS REFLEX MICROSCOPIC REFLEX CULTURE(Performed 05/20/2015) Performed for Degenerative arthritis of right knee * PATHOLOGY TISSUE EXAM (STL)(Performed 05/20/2015) Performed for Degenerative arthritis of right knee * CULTURE URINE(Performed 05/20/2015) Performed for Degenerative arthritis of right knee * ARTHROPLASTY TOTAL KNEE(Performed 05/20/2015) Performed for Degenerative arthritis of right knee * PERIPHERAL BLOCK(Performed 05/20/2015) * XR CHEST 2VW(Performed 05/10/2015) Performed for Pre-op testing * COMPREHENSIVE METABOLIC PANEL(Performed 05/10/2015) Performed for Preoperative examination * CBC W AUTO DIFFERENTIAL(Performed 05/10/2015) Performed for Preoperative examination * CULTURE MSSA/MRSA(Performed 05/10/2015) Performed for Preoperative examination * EKG 12-LEAD(Performed 05/10/2015) Performed for Pre-operative examination * MRI KNEE RIGHT WO CONTRAST(Performed 04/23/2015) Performed for Primary osteoarthritis of right knee * XR BONE LENGTH SCANOGRAM(Performed 04/23/2015) Performed for Osteoarthritis of left knee, unspecified osteoarthritis type Results * XR Knee Left 3Vw (06/13/2024 10:20 AM [facility]IEF OF PLANNING) Only the most recent of3 resultswithin the time period is included. Anatomical Region Laterality Modality Lower Extremity Radiographic Kathi ging 06/13/2024 12:5 0 PM [facility] OF PLANNING Narrative 06/13/2024 12:51 PM [facility]IEF OF PLANNING PROCEDURE: XR KNEE LEFT 3VW DATE/TIME OF [...] Moises Olivarez DO DIAGNOSTIC IMAGI NG ORDERABLES * CARDIAC RHYTHM STRIP ORDER (06/04/2023 8:52 PM [facility]IEF OF PLANNING) Only the most recent of2 resultswithin the time period is included. Narrative 06/04/2023 8:52 PM CHIEF OF PLANNING Ordered by an unspecified provider. Scanned Document CARDIAC SERVICES ORD ERABLES * IMAGING RADIOLOGY XRAY RESULTS ORDER (06/04/2023 8:25 PM CHIEF OF PLANNING) Only the most recent of2 resultswithin the time period is included. Anatomical Region Laterality Modality Other Narrative 06/04/2023 8:25 PM CHIEF OF PLANNING Ordered by an unspecified provider. Scanned Document IMAGING * HGB HCT PANEL (05/30/2023 9:50 AM [employer]IEF OF PLANNING) Only the most recent of3 resultswithin the time period is included. Hemoglobin 13.2 12.0 - 15.6 gm/dL 05/30/2023 10:33 [address] Hematocrit 42.1 35.9 - 45.5 % 05/30/2023 10:33 [address] [facility] [address] Blood BLOOD SPECIMEN / Unknown Lab Venipuncture / Unknown 05/30/2023 9:50 AM [employer]IEF OF PLANNING 05/30/2023 10:23 AM [employer] OF PLANNING Moises Olivarez DO LAB - HEMATOLOGY ORDERABLES [facility] [address] [place] [address] * (ABNORMAL) BASIC METABOLIC PANEL (CALCIUM TOTAL) (05/30/2023 9:50 AM CHIEF OF PLANNING) Only the most recent of2 resultswithin the time period is included. [facility] Glucose 176(H) 70 - 105 mg/dL 05/30/2023 10:54 AM [facility] Sodium 140 136 - 145 mmol/L 05/30/2023 10:54 AM [facility] Potassium 5.3(H) 3.5 - 5.1 mmol/L 05/30/2023 10:54 AM [facility] Chloride 106 98 - 107 mmol/L 05/30/2023 10:54 AM [facility] CO2 24 22 - 29 mmol/L 05/30/2023 10:54 AM [facility] Calcium 9.0 8.4 - 10.4 mg/dL 05/30/2023 10:54 AM [facility] Anion Gap 10 6 - 16 mmol/L 05/30/2023 10:54 AM [facility] BUN 17 7 - 26 mg/dL 05/30/2023 10:54 AM [facility] Creatinine 1.31(H) 0.57 - 1.11 mg/dL 05/30/2023 10:54 AM [facility] eGFR by CKD-EPI 44(L) >=90 mL/min/1.7 3 m2 05/30/2023 10:54 AM [facility] Blood BLOOD SPECIMEN / Unknown Lab Venipuncture / Unknown 05/30/2023 9:50 AM [facility] OF PLANNING 05/30/2023 10:23 AM [facility] OF PLANNING Moises Olivarez DO LAB - CHEMISTRY ORDERABLES [facility] [address], [place] [id number] * XR KNEE LEFT 2VW OR LESS (05/29/2023 5:15 PM CHIEF OF PLANNING) Anatomical Region Laterality Modality Lower Extremity Radiographic Kathi ging 05/29/2023 5:19 PM CHIEF OF PLANNING Narrative 05/29/2023 5:20 PM CHIEF OF PLANNING Procedure: XR KNEE LEFT 2VW OR LESS Exam Date: 05/29/2023 5:15 PM Location: [facility] Indication: M17.12: Unilateral primary osteoarthritis, left knee Findings/impression: Patient is status post total knee replacement. The prosthesis appears in good position. There is a joint effusion. There is air within the soft tissues and joint space consistent with the recent surgery. > Interpreting Provider: Greyson Mason MD on 05/29/2023 5:20 PM Procedure Note Greyson Mason MD - 05/29/2023 Procedure: XR KNEE LEFT 2VW OR LESS Exam Date: 05/29/2023 5:15 PM Location: [facility] Indication: M17.12: Unilateral primary osteoarthritis, left knee Findings/impression: Patient is status post total knee replacement. The prosthesis appears in good position. There is a joint effusion. There is air within the soft tissues and joint space consistent with the recent surgery. > Interpreting Provider: Greyson Mason MD on 05/29/2023 5:20 PM Moises Olivarez DO DIAGNOSTIC IMAGI NG ORDERABLES * Neuraxial Block (05/29/2023 2:36 PM CHIEF OF PLANNING) Narrative Ruthy Wilson APRN-CRNA - 05/29/2023 2:36 PM [employer]IEF OF PLANNING Ruthy Wilson APRN-CRNA 05/29/2023 2:36 PM Neuraxial Block Note Pre-Procedure: Procedure Name: Neuraxial Block Patient Location: OB Indications: surgical anesthesia Pre-Anesthetic Checklist: Patient identified, IV Checked, Risks and benefits discussed, Surgical consent verified, Monitors and equipment, Site examined, Pre-op evaluation done, Time-out performed, Informed consent obtained, Questions answered/anesthesia questions answered and Allergies reviewed Anticoagulation/ Anti-thrombosis status confirmed? Yes Supplemental O2: room air Monitors: BP, continuous pluse ox, EKG and End tidal CO2 Patient Condition: awake Patient Sedated? No Procedure: Block Type: Spinal Prep: Betadine Sterile Field: mask, cap/hat, sterile established and sterile gloves Approach: midline Skin was localized? No Spinal Block: Needle Type: spinal needle Needle Gauge: 25 Placement Site: L4-5 Number of Attempts: 1 CSF: free flow, aspiration before injection, aspiration during injection, aspiration after injection Degree of difficulty: none Procedure Tolerance: tolerated well Sensory Level: T4 Motor Blockade: Yes Position post procedure: supine, left uterine displacement Vital Signs: Vital signs monitored and stable throughout. See anesthesia record for details., Vital signs moniitored and stable throughout. See nursing vitals flowsheet for details., heart tones monitored and stable throughout. Staff: Anesthesia Provider: Ruthy Wilson APRN-FORK LIFT TECHNICIAN - performed the procedure Soco Castro MD GENERAL ANESTHESIA O RDERABLES * (ABNORMAL) GLUCOSE - POINT OF CARE (05/29/2023 12:12 PM [facility]F [facility] PLANNING) Glucose WB/POC 120(H) 70 - 106 mg/dL 05/30/2023 5:33 [address] Specimen Type Venous 05/30/2023 5:33 [address] [facility] [address] [facility] Blood BLOOD SPECIMEN / Unknown 05/29/2023 12:12 PM [employer]F OF PLANNING 05/30/2023 5:33 AM [facility]ANNING [facility] - POINT OF C ARE ORDERABLES Performing Organization Address [facility] Co de Phone Number [facility] [address] [place] [address] * TYPE + SCREEN PANEL (05/29/2023 12:11 PM [facility]IEF OF PLANNING) Only the most recent of2 resultswithin the time period is included. ABO Rh A POS 05/29/2023 1:[address] [facility] Comment:History checked. Antibody Screen NEG 1:05 PM [facility] Blood Bank BLOOD SPECIMEN / Unknown Venipuncture / Unknown 05/29/2023 12:11 PM [employer]F OF PLANNING 05/29/2023 12:19 PM [facility]IEF OF PLANNING Moises Forrest [facility] LAB - BLOOD BANK ORDERABLES Performing Organization Address City/[facility] Co de Phone Number [facility] [address] [place] [address], [facility] [phone] * APHERESIS/TRANSFUSION ORDER (05/22/2023 1:58 AM [facility]IEF OF PLANNING) Narrative 05/22/2023 1:58 AM [facility] [employer] PLANNING Ordered by an unspecified provider. Scanned Document NURSING - VITAL SIGN S AND ASSESSMENT * (ABNORMAL) C-REACTIVE PROTEIN (05/15/2023 11:02 AM [facility]IEF OF PLANNING) Only the most recent of2 resultswithin the time period is included. C-Reactive Protein 0.83(H) <=0.50 mg/dL 05/15/2023 11:37 [address] [facility] Blood BLOOD SPECIMEN / Unknown Lab Venipuncture / Unknown 05/15/2023 11:02 AM [employer]F OF PLANNING 05/15/2023 11:04 AM [facility]ANNING [facility] LAB - CHEMISTRY ORDERABLES Performing Organization Address City/[facility] Co de Phone Number [facility] [address] [place], [place] [id number] * ERYTHROCYTE SEDIMENTATION RATE (05/15/2023 11:02 AM CHIEF OF PLANNING) Only the most recent of2 resultswithin the time period is included. Pathologist [facility] Erythrocyte Sedimentation Rate Automated 24 0 - 30 MM/HR 05/15/2023 11:19 [address] Blood BLOOD SPECIMEN / Unknown Lab Venipuncture / Unknown 05/15/2023 11:02 AM [employer]F OF PLANNING 05/15/2023 11:04 AM [facility] PLANNING [facility] LAB - HEMATOLOGY ORDERABLES Performing Organization Address City/[facility]/ZIP Co de Phone Number [facility] [address] [place] [id number] * CULTURE MSSA/MRSA (05/08/2023 9:48 AM CDT) Only the most recent of2 resultswithin the time period is included. Pathologist [facility] Culture Negative for Staphylococcus aureus (MRSA/MSSA) 05/09/2023 7:03 PM CDT [facility] MICROBIOLOGY Microbiology SPECIMEN FROM NASAL FOSSAE / Unknown Collection / Unknown 05/08/2023 9:48 AM CDT 05/08/2023 10:10 AM CDT Moises Olivarez DO LAB - MICROBIOLO GY ORDERABLES [facility] MICROBIOLOGY [address] [place] [address], [facility] [phone] * (ABNORMAL) URINALYSIS REFLEX MICROSCOPIC REFLEX CULTURE (05/08/2023 9:48 AM CDT) Only the most recent of2 resultswithin the time period is included. Color UA Colorless(A) Straw, Yellow 05/08/2023 10:[address] [facility] Clarity UA Clear Clear 05/08/2023 10:[address] [facility] Glucose UA Negative Negative 05/08/2023 10:[address] [facility] Bilirubin UA Negative Negative 05/08/2023 10:[address] [facility] Ketone UA Negative Negative 05/08/2023 10:[address] [facility] Specific [place] UA 1.005 1.005 - 1.030 05/08/2023 10:[address] [facility] Blood UA Negative Negative 05/08/2023 10:[address] [facility] pH UA 6.0 5.0 - 8.0 pH 05/08/2023 10:[address] [facility] Protein UA Negative Negative 05/08/2023 10:[address] [facility] Urobilinogen UA Negative Negative mg/dL 05/08/2023 10:[address] [facility] Nitrite UA Negative Negative 05/08/2023 10:[address] [facility] Leukocyte UA Negative Negative 05/08/2023 10:[address] [facility] Urine Microscopy Urine microscopy not indicated 05/08/2023 10:[address] [facility] Reflex Status Culture not indicated 05/08/2023 10:[address] [facility] Urine URINE SPECIMEN OBTAINED BY CLEAN CATCH PROCEDURE / Unknown Collection / Unknown 05/08/2023 9:48 AM CDT 05/08/2023 10:[address] [facility] - 05/08/2023 10:20 AM CDT [facility] DO LAB - URINALYSIS ORDERABLES [facility] [address] [place] [address] * TRANSFERRIN (05/08/2023 9:48 AM CDT) Transferrin 216 174 - 382 mg/dL 05/08/2023 10:[address] [facility] Blood BLOOD SPECIMEN / Unknown Venipuncture / Unknown 05/08/2023 9:48 AM CDT 05/08/2023 10:10 AM CDT [facility] - CHEMISTRY ORDERABLES Performing Organization Address [facility] Co de Phone Number [facility] [address] [place] [address] * (ABNORMAL) HEMOGLOBIN A1C (05/08/2023 9:48 AM CDT) Hemoglobin A1c 6.6(H) <5.7 % 05/08/2023 10:[address] [facility] Estimated Average Glucose 143 mg/dL 05/08/2023 10:[address] [facility] Blood BLOOD SPECIMEN / Unknown Venipuncture / Unknown 05/08/2023 9:48 AM CDT 05/08/2023 10:10 AM CDT [facility] - 05/08/2023 10:55 AM CDT HbA1c Interpretation: Normal: < 5.7% Pre-diabetes: 5.7-6.4% Diabetes: Equal to or greater than 6.5% Test results diagnostic of diabetes should be repeated for confirmation. Treatment target values recommended by ADA and other clinical organizations should be used to evaluate metabolic control in patients. This test should not replace glucose testing for patients with Type 1 diabetes, pediatric patients, or women. Falsely low HbA1c results may be observed in patients with clinical conditions that shorten erythrocyte life span or decrease mean erythrocyte age such as the presence of unstable hemoglobin variants, elevated hemoglobin F level or other causes of hemolytic anemia. HbA1c may not accurately reflect glycemic control when clinical conditions that affect erythrocyte survival are present. Severe Iron deficiency anemia may yield falsely high results. Hemoglobin A1c assay should not be used to diagnose or monitor diabetes in patients with malignancy, recent blood transfusion, chronic kidney or liver disease. This method may yield falsely low results when hemoglobin (HbF) exceeds 5% in the specimen. The [employer] Alinity assay for the measurement of HbA1c is a National Glycohemoglobin Standardization Program (NGSP) certified method. Moises Olivarez LAB - CHEMISTRY ORDERABLES Performing Organization Address [facility] de Phone Number [facility] [address] [place] [address] * FRUCTOSAMINE (05/08/2023 9:48 AM CDT) Pathologist [facility] Fructosamine 271 205 - 285 umol/L 05/10/2023 2:42 AM CDT [facility] [employer] ([facility]) Comment: INTERPRETIVE INFORMATION: Fructosamine Variations in levels of serum proteins (albumin and immunoglobulins) may affect fructosamine results. Performed By: [facility] [address] [place] [address] Lumber Buyer: Arthur Mendoza MD, PhD CLIA Number: [id number] Blood BLOOD SPECIMEN / Unknown Venipuncture / Unknown 05/08/2023 9:48 AM CDT 05/08/2023 10:10 AM CDT [facility] - CHEMISTRY ORDERABLES Performing Organization Address [facility] de Phone Number [facility] [employer] ([facility]) [address] [place] [address] * (ABNORMAL) PT-INR (05/08/2023 9:48 AM CDT) Pathologist [facility] PT 14.5 12.1 - 14.8 sec 05/08/2023 10:[address] [facility] INR 1.2(H) 0.9 - 1.1 05/08/2023 10:[address] [facility] Blood BLOOD SPECIMEN / Unknown Venipuncture / Unknown 05/08/2023 9:48 AM CDT 05/08/2023 10:10 AM CDT [facility] - 05/08/2023 10:25 AM CDT Conventional Warfarin Anticoagulant Therapy: INR Reference Range: 2.0-3.0 Intensive Warfarin Anticoagulant Therapy: INR Reference Range: 2.5-3.5 Moises Olivarez DO LAB - COAGULATIO N ORDERABLES Performing Organization Address City/State/[facility] Co de Phone Number [facility] [address] [place] [address] * CBC W AUTO DIFFERENTIAL (05/08/2023 9:48 AM CDT) Only the most recent of2 resultswithin the time period is included. [facility] Signature WBC 5.0 4.4 - 10.7 x10E9/L 05/08/2023 10:[address] [facility] WBC Corrected 05/08/2023 10:[address] [facility] RBC 4.41 3.80 - 5.20 x10E12/L 05/08/2023 10:[address] [facility] Hemoglobin 13.3 12.0 - 15.6 gm/dL 05/08/2023 10:[address] [facility] Hematocrit 42.3 35.9 - 45.5 % 05/08/2023 10:[address] [facility] MCV 95.9 80.7 - 98.3 fl 05/08/2023 10:[address] [facility] MCH 30.2 26.7 - 34.0 pg 05/08/2023 10:[address] [facility] MCHC 31.4 30.8 - 35.9 gm/dL 05/08/2023 10:[address] [facility] Platelet Count 242 153 - 416 x10E9/L 05/08/2023 10:[address] [facility] RDW-CV 14.6 12.1 - 14.9 % 05/08/2023 10:[address] [facility] MPV 11.1 9.4 - 12.9 fl 05/08/2023 10:[address] [facility] Neutrophils % 57.7 44.0 - 73.0 % 05/08/2023 10:[address] [facility] Lymphocytes % 28.8 20.0 - 43.0 % 05/08/2023 10:[address] [facility] Monocytes % 10.9 5.0 - 13.0 % 05/08/2023 10:[address] [facility] Eosinophils % 1.4 0.0 - 6.0 % 05/08/2023 10:[address] [facility] Basophils % 0.6 0.0 - 2.0 % 05/08/2023 10:[address] [facility] Immature Granulocytes 0.6 0 - 1 % 05/08/2023 10:[address] [facility] Neutrophil Absolute 2.90 2.01 - 7.14 x10E9/L 05/08/2023 10:[address] [facility] Lymphocytes Absolute 1.45 1.07 - 3.94 x10E9/L 05/08/2023 10:[address] [facility] Monocytes Absolute 0.55 0.26 - 1.07 x10E9/L 05/08/2023 10:[address] [facility] Eosinophils Absolute 0.07 0 - 0.47 x10E9/L 05/08/2023 10:[address] [facility] Basophils Absolute 0.03 0 - 0.08 x10E9/L 05/08/2023 10:[address] [facility] Immature Granulocytes Absolute 0.03 0.00 - 0.06 x10E9/L 05/08/2023 10:[address] [facility] nRBC Auto 0 /100 WBC 05/08/2023 10:[address] [facility] Blood BLOOD SPECIMEN / Unknown Venipuncture / Unknown 05/08/2023 9:48 AM CDT 05/08/2023 10:10 AM CDT Moises Olivarez DO LAB - HEMATOLOGY ORDERABLES [facility] [address] [place] [address] * (ABNORMAL) COMPREHENSIVE METABOLIC PANEL (05/08/2023 9:48 AM CDT) Only the most recent of2 resultswithin the time period is included. [facility] Glucose 122(H) 70 - 105 mg/dL 05/08/2023 10:[address] [facility] Sodium 142 136 - 145 mmol/L 05/08/2023 10:[address] [facility] Potassium 4.3 3.5 - 5.1 mmol/L 05/08/2023 10:[address] [facility] Chloride 107 98 - 107 mmol/L 05/08/2023 10:[address] [facility] CO2 27 22 - 29 mmol/L 05/08/2023 10:[address] [facility] Calcium 9.6 8.4 - 10.4 mg/dL 05/08/2023 10:[address] [facility] Anion Gap 8 6 - 16 mmol/L 05/08/2023 10:[address] [facility] BUN 20 7 - 26 mg/dL 05/08/2023 10:[address] [facility] Creatinine 1.15(H) 0.57 - 1.11 mg/dL 05/08/2023 10:[address] [facility] Alkaline Phosphatase 61 40 - 150 U/L 05/08/2023 10:[address] [facility] ALT 10 0 - 55 U/L 05/08/2023 10:[address] [facility] AST 13 5 - 34 U/L 05/08/2023 10:[address] [facility] Protein Total 7.3 6.4 - 8.3 gm/dL 05/08/2023 10:31 [facility] Albumin 3.5 3.4 - 5.0 gm/dL 05/08/2023 10:[address] [facility] Bilirubin Total 0.6 0.2 - 1.2 mg/dL 05/08/2023 10:31 AM [facility] eGFR by CKD-EPI 52(L) >=90 mL/min/1.7 3 m2 05/08/2023 10:[address] [facility] Blood BLOOD SPECIMEN / Unknown Venipuncture / Unknown 05/08/2023 9:48 AM CDT 05/08/2023 10:10 AM CDT Moises Olivarez DO LAB - CHEMISTRY ORDERABLES [facility] [address] [place] [address] * XR KNEE LEFT 4VW OR MORE (02/16/2023 2:42 PM CDT) Only the most recent of2 resultswithin the time period is included. Anatomical Region Laterality Modality Lower Extremity Radiographic Kathi ging 02/16/2023 2:59 PM CDT Impressions 02/16/2023 3:05 PM CDT IMPRESSION: Progressive and now severe arthritic changes of the lateral compartment of the left knee. Again noted are severe arthritic changes of the patellofemoral articulation with relative loss of the joint space at that level. > Interpreting Provider: Unruly Smith MD on 02/16/2023 3:05 PM Narrative 02/16/2023 3:05 PM CDT PROCEDURE: XR KNEE LEFT 4VW OR MORE DATE/TIME OF EXAM: 02/16/2023 2:43 PM CLINICAL INFORMATION: None relevant/not provided if blank. Indication: M17.12: Unilateral primary osteoarthritis, left knee Additional History: COMPARISON: Left knee study dated 10/11/2021 FINDINGS: Weightbearing AP, PA tunnel, lateral and sunrise views of the left knee were obtained and demonstrates progressive arthritic changes now appearing severe involving the lateral compartment of the left knee. The height of the medial compartment appears to be relatively intact. Severe arthritic changes again noted with loss of joint space of the patellofemoral articulation from the level of the median ridge laterally. Reactive sclerotic changes seen on both sides of the patellofemoral articulation. Small amount of joint effusion believed to be present. Procedure Note Unruly Smith MD - 02/16/2023 PROCEDURE: XR KNEE LEFT 4VW OR MORE DATE/TIME OF EXAM: 02/16/2023 2:43 PM CLINICAL INFORMATION: None relevant/not provided if blank. Indication: M17.12: Unilateral primary osteoarthritis, left knee Additional History: COMPARISON: Left knee study dated 10/11/2021 FINDINGS: Weightbearing AP, PA tunnel, lateral and sunrise views of the left knee were obtained and demonstrates progressive arthritic changesnow appearing severe involving the lateral compartment of the left knee. The height of the medial compartment appears to be relatively intact. Severe arthritic changes again noted with loss of joint space of the patellofemoral articulation from the level of the median ridgelaterally. Reactive sclerotic changes seen on both sides of the patellofemoral articulation. Small amount of joint effusion believed to be present. IMPRESSION: Progressive and now severe arthritic changes of the lateral compartment of the left knee. Again noted are severe arthritic changes of the patellofemoralarticulation with relative loss of the joint space at that level. > Interpreting Provider: Unruly Smith MD on 02/16/2023 3:05 PM Moises Olivarez DO DIAGNOSTIC IMAGI NG ORDERABLES * MI DRAIN/INJECT LARGE JOINT/BURSA (01/25/2023 12:01 PM CDT) Harjinder Wilcox MD - 01/25/2023 12:01 PM CDT Harjinder Willis MD 01/25/2023 12:01 PM INJECTION PROCEDURE NOTE: Pros and cons of injection were discussed with the patient. Patient has elected and consented to proceed. The superolateral aspect of the left knee(s) was prepped in the usual sterile manner. The skin, subcutaneous tissues and capsule were anesthetized with 1% xylocaine. An 18g needle was inserted into the knee, 52 ccs of clear yellow fluid was then aspirated, and 80 mgs triamcinalone and 3 ccs 1% xylocaine were then injected. This was well tolerated. Harjinder Willis MD PROCEDURE/MINOR SURG ICAL ORDERABLES * MI DRAIN/INJECT LARGE JOINT/BURSA (10/24/2022 12:45 PM CDT) Harjinder Wilcox MD - 10/24/2022 12:45 PM CDT Harjinder Willis MD 10/24/2022 12:46 PM INJECTION PROCEDURE NOTE: Pros and cons of injection were discussed with the patient. Patient has elected and consented to proceed. The superolateral aspect of the left knee(s) was prepped in the usual sterile manner. The skin, subcutaneous tissues and capsule were anesthetized with 1% xylocaine. An 18g needle was inserted into the knee, 40 ccs of clear yellow fluid was then aspirated, and 80 mgs triamcinalone and 3 ccs 1% xylocaine were then injected. This was well tolerated. Harjinder Willis MD PROCEDURE/MINOR SURG ICAL ORDERABLES * MI DRAIN/INJECT LARGE JOINT/BURSA (07/19/2022 1:04 PM CHIEF OF PLANNING) Harjinder Wilcox MD - 07/19/2022 1:04 PM [employer]IE[employer] OF PLANNING Harjinder Willis MD 07/19/2022 1:04 PM INJECTION PROCEDURE NOTE: Pros and cons of injection were discussed with the patient. Patient has elected and consented to proceed. The superolateral aspect of the left knee(s) was prepped in the usual sterile manner. The skin, subcutaneous tissues and capsule were anesthetized with 1% xylocaine. An 18g needle was inserted into the knee, 31 ccs of clear yellow fluid was then aspirated, and 80 mgs triamcinalone and 3 ccs 1% xylocaine were then injected. This was well tolerated. Harjinder Willis MD PROCEDURE/MINOR SURG ICAL ORDERABLES * MI DRAIN/INJECT LARGE JOINT/BURSA (04/18/2022 12:50 PM CDT) Harjinder Wilcox MD - 04/18/2022 12:50 PM CDT Harjinder Willis MD 04/18/2022 12:50 PM INJECTION PROCEDURE NOTE: Pros and cons of injection were discussed with the patient. Patient has elected and consented to proceed. The superolateral aspect of the left knee(s) was prepped in the usual sterile manner. The skin, subcutaneous tissues and capsule were anesthetized with 0.5% Bupivacaine. An 18g needle was inserted into the knee, 55 ccs of clear yellow fluid was then aspirated, and 80 mgs triamcinalone and 3 ccs 0.5%Bupivacaine were then injected. This was well tolerated. Harjinder Willis MD PROCEDURE/MINOR SURG ICAL ORDERABLES * MI DRAIN/INJECT LARGE JOINT/BURSA (01/12/2022 1:12 PM CDT) Harjinder Wilcox MD - 01/12/2022 1:12 PM CDT Harjinder Willis MD 01/12/2022 1:12 PM INJECTION PROCEDURE NOTE: Pros and cons of injection were discussed with the patient. Patient has elected and consented to proceed. The superolateral aspect of the left knee(s) was prepped in the usual sterile manner. The skin, subcutaneous tissues and capsule were anesthetized with 1% xylocaine. An 18g needle was inserted into the knee, 40 ccs of clear yellow fluid was then aspirated, and 80 mgs triamcinalone and 3 ccs 1% xylocaine were then injected. This was well tolerated. Harjinder Willis MD PROCEDURE/MINOR SURG ICAL ORDERABLES * MI DRAIN/INJECT LARGE JOINT/BURSA (12/13/2021 4:32 PM CDT) Harjinder Wilcox MD - 12/13/2021 4:32 PM CDT Harjinder Willis MD 12/13/2021 4:33 PM INJECTION PROCEDURE NOTE: Pros and cons of injection were discussed with the patient. Patient has elected and consented to proceed. The superolateral aspect of the left knee(s) was prepped in the usual sterile manner. The skin, subcutaneous tissues and capsule were anesthetized with 1% xylocaine. An 18g needle was inserted into the knee, 65 ccs of clear yellow fluid was then aspirated, I did not inject anything. This was well tolerated. Harjinder Willis MD PROCEDURE/MINOR SURG ICAL ORDERABLES * MI DRAIN/INJECT LARGE JOINT/BURSA (10/11/2021 4:21 PM CDT) Harjinder Wilcox MD - 10/11/2021 4:21 PM CDT Harjinder Willis MD 10/11/2021 4:22 PM INJECTION PROCEDURE NOTE: Pros and cons of injection were discussed with the patient. Patient has elected and consented to proceed. The superolateral aspect of the left knee(s) was prepped in the usual sterile manner. The skin, subcutaneous tissues and capsule were anesthetized with 1% xylocaine. An 18g needle was inserted into the knee, 47 ccs of clear yellow fluid was then aspirated, and 80 mgs triamcinalone and 3 ccs 1% xylocaine were then injected. This was well tolerated. Harjinder Willis MD PROCEDURE/MINOR SURG ICAL ORDERABLES * MI DRAIN/INJECT LARGE JOINT/BURSA (07/05/2021 1:42 PM CHIEF OF PLANNING) Harjinder Wilcox MD - 07/05/2021 1:42 PM CHIEF OF PLANNING Harjinder Willis MD 07/05/2021 1:42 PM INJECTION PROCEDURE NOTE: Pros and cons of injection were discussed with the patient. Patient has elected and consented to proceed. The superolateral aspect of the left knee(s) was prepped in the usual sterile manner. The skin, subcutaneous tissues and capsule were anesthetized with 1% xylocaine. An 18g needle was inserted into the knee, 42 ccs of clear yellow fluid was then aspirated, and 80 mgs triamcinalone and 3 ccs 1% xylocaine were then injected. This was well tolerated. Harjinder Willis MD PROCEDURE/MINOR SURG ICAL ORDERABLES * MI DRAIN/INJECT LARGE JOINT/BURSA (05/24/2020 11:13 AM CHIEF OF PLANNING) Narrative Harjinder Holloway MD - 05/24/2020 11:13 AM [employer]IE[employer] OF PLANNING Harjinder Holloway MD 05/25/2020 6:51 AM Diagnosis: on leftOsteoarthritis Knee Procedure: Injection of Corticosteroid into the on left Knee. Indications: Asiya Singleton is a 65 year old female who has on left knee pain and radiographic findings of arthritis. We have reviewed with the patient the AAOS Guidelines for the management of arthritis and have made appropriate recommendations. Patient has requested additional measures(injection) to try to reduce knee pain. Procedure Details: The patient was informed of her condition, and the potential benefits of injection of steroid. The patient was counseled as to the risks of the procedure. The patient was understanding and agreeable. Thepatient was placed into the supine position. The area was prepped with betadine swabs x 3. Utilizing the supra-patellar portal, the knee was injected with the corticosteroid methylprednisolone and 2 mL of 1% lidocaine without epinephrine using a 21 Ga needle. The needle was removed and the needle site dressed with a semi-sterile bandage. The patient tolerated the procedure well. Remainder of plan per note. Harjinder Holloway MD 05/24/2020 11:13 AM Harjinder Holloway MD PROCEDURE/MINOR SURG ICAL ORDERABLES * XR KNEE BILAT 3VW (08/08/2019 11:27 AM CHIEF OF PLANNING) Anatomical Region Laterality Modality Lower Extremity Radiographic Kathi ging Narrative 08/08/2019 11:29 AM CHIEF OF PLANNING Erma Bauman, RT 08/23/2019 3:15 PM Please see progress note in Epic for results. Gentry Melendez MD DIAGNOSTIC IMAGING O RDERABLES * XR KNEE RIGHT 3VW (01/04/2018 9:01 AM CDT) Only the most recent of2 resultswithin the time period is included. Anatomical Region Laterality Modality Lower Extremity Radiographic Kathi ging Narrative 01/08/2018 4:50 PM CDT Ingrid Chambers 01/08/2018 4:50 PM Please see progress notes for xray results Gentry Melendez MD DIAGNOSTIC IMAGING O RDERABLES * GROSS + MICRO EXAM (STL) (05/20/2015 2:54 PM CHIEF OF PLANNING) Case Report Surgical Pathology Report Case: [id number] Authorizing Provider: Gentry Melendez MD Collected: 05/20/2015 02:54 PM Ordering Location: [facility] Received: 05/21/2015 08:15 AM Pathologist: Stephanie Newton MD Specimen: Bone Fragments 05/24/2015 4:35 PM CHIEF OF PLANNING [facility] Final Diagnosis Bone and tissue, right knee, excision: - Bone with features of degenerative joint disease - Synovium with fibrosis and crystal deposits consistent with CPPD KL/alj 05/24/2015 4:35 PM [facility] Gross Description Received in formalin in a container labeled Singleton, Asiya, Bone, right knee. The container holds multiple fragments of bone and soft tissue. The bone fragments measure 12 x 10 x 3.5 cm in aggregate. Among the pieces of bone is a recognizable tibial plateau. The articular surface is roughened and displays focal areas of eburnation. The margins of resection are uniform. Sectioning shows a yellow-feliciano cut surface. The soft tissue fragments measure 7.5 x 6 x 2.3 cm in aggregate. Sectioning shows a yellow-feliciano cut surface. There are no lesions or masses grossly identified. Anesthesia Tech sections are submitted as follows: A1 - Bone follow decalcification, A2 - Soft tissue. DYT/tc 05/24/2015 4:35 PM [facility] Microscopic Description Histologic sections show bone with an irregular articular surface and areas of eburnation consistent with degenerative joint disease. The synovium shows fibrosis and crystal deposits consistent with calcium pyrophosphate dihydrate (CPPD). There is no evidence of malignancy. KL/alj 05/24/2015 4:35 PM CHIEF OF PLANNING [facility] Pathology/Cytolo gy BONE TISSUE SPECIMEN / Unknown 05/20/2015 2:54 PM CHIEF OF PLANNING 05/21/2015 8:15 AM CHIEF OF PLANNING Gentry Melendez MD LAB - PATHOLOGY/CYTO LOGY ORDERABLES [facility] [address] [place] [address] * CULTURE URINE (05/20/2015 2:54 PM CHIEF OF PLANNING) Culture No Growth (<1,000 CFU/mL) GIRISH 05/22/2015 5:29 AM CHIEF OF PLANNING [facility]CRO[facility] Urine URINE SPECIMEN OBTAINED VIA [facility]IN[facility] CATHETER / Unknown 05/20/2015 2:54 PM CHIEF OF PLANNING 05/20/2015 6:14 PM CHIEF OF PLANNING Gentry Melendez MD LAB - MICROBIOLOGY O RDERABLES Performing Organization Address City/[facility] Co de Phone Number [facility] [employer] MICROBIOLOG[facility] [address] [place] [address] [phone] * PERIPHERAL BLCOK (05/20/2015 1:52 PM CHIEF OF PLANNING) Narrative Sam Hernández DO - 05/20/2015 1:52 PM CHIEF OF PLANNING Sam Hernández DO 05/20/2015 1:52 PM Peripheral Block Patient Location: pre-op Pre Procedure Indication: at surgeon's request and post-operative analgesia Preanesthetic Checklist: patient identified, IV checked, site marked, risks and benefits discussed, surgical consent verified, monitors and equipment checked, pre-op evaluation done, timeout performed, informed consent obtained and questions answered / anesthesia plan accepted Monitors: Pulse Ox Patient Condition: sedated, meaningful contact maintained Patient Position: supine Procedure Laterality: right Block Performed: femoral Prep: Chloraprep Sterile Field: sterile field established and sterile gloves Skin Numbed with: lidocaine 1% Needle Type: nerve stimulator Needle Gauge: 21 Needle Length: 100 mm Ultrasound guided Technique: in plane Visualization: target ID'd, good spread of local around target and Ultrasound image in chart Block Agent: ropivacaine 0.2% 40 mL Epinephrine in Block Agent: none Other Additives: clonidine 100 mcg Injection was made incrementally with constant monitoring and aspirations every 5 mL's. Events blood not aspirated injection not painful no injection resistance no paresthesia no other events Block Performed by: dr hernández This block was performed for post operative analgesia at surgeon's request. Please see intraop navigator for medications administered. Sterile technique followed. Sam Hernández DO GENERAL ANESTHESIA ORDERABLES * XR CHEST PA AND LATERAL (05/10/2015 11:35 AM CHIEF OF PLANNING) Anatomical Region Laterality Modality Chest Radiographic Kathi ging 05/10/2015 11:5 0 AM CHIEF OF PLANNING Impressions 05/10/2015 12:15 PM CHIEF OF PLANNING No acute pulmonary disease. Edited by Danay Chaney on 05/10/2015 12:08 PM Narrative 05/10/2015 12:15 PM CHIEF OF PLANNING CHEST TWO VIEWS Indication: Cough and preop. Findings: Two views of the chest without prior show no consolidation, pleural effusion or pneumothorax. The heart size is normal. Procedure Note Alex Terry MD - 05/10/2015 CHEST TWO VIEWS Indication: Cough and preop. Findings: Two views of the chest without prior show no consolidation, pleural effusion or pneumothorax. The heart size is normal. IMPRESSION No acute pulmonary disease. Edited by Danay Chaney on 05/10/2015 12:08 PM Gentry Melendez MD DIAGNOSTIC IMAGING O RDERABLES * EKG 12-LEAD (05/10/2015 10:37 AM CHIEF OF PLANNING) Ventricular Rate 52 BPM [facility] Atrial Rate 52 BPM [facility] P-R Interval 142 ms [facility] QRS Duration ms 76 ms [facility] Q-T Interval ms 438 ms [facility] QTC Calculation (Bezet) 407 ms [facility] Calculated P Connelly 25 degrees [facility] Calculated R Connelly -23 degrees [facility] Calculated T Connelly 25 degrees [facility] Interpretation EKG Sinus bradycardia IACD WITH SHORT MI Borderline ECG No previous ECGs available Confirmed by MD MARVIN, FIORDALIZA Nguyen (3) on 05/11/2015 7:31:48 AM [facility] 05/10/2015 10:3 7 AM CHIEF OF PLANNING 05/11/2015 7:31 AM CHIEF OF PLANNING Gentry Melendez MD ECG ORDERABLES [facility] * MRI KNEE RIGHT WO CONT (04/23/2015 11:47 AM CDT) Anatomical Region Laterality Modality Lower Extremity Magnetic Resonan ce 04/23/2015 3:06 PM CDT Narrative 04/23/2015 3:08 PM CDT MRI right knee Indication for examination: Right knee pain, internal derangement. Presurgical evaluation. Noncontrast T1 and T2-weighted images of the right knee are obtained, per presurgical protocol. There is markedly advanced degenerative change in the patellofemoral compartment primarily laterally. There is lateral subluxation of the patella. There is a small to moderate joint effusion. Extensor mechanism is intact. There is mild degenerative arthritic change medial and lateral compartment. There is degenerative change within the substance of the medial meniscus. Cruciate and collateral ligaments appear intact. No fracture or bone marrow replacement process. Conclusion: Degenerative change as described, most marked in the patellofemoral compartment. Procedure Note Unruly Rodriguez MD - 04/23/2015 MRI right knee Indication for examination: Right knee pain, internal derangement. Presurgical evaluation. Noncontrast T1 and T2-weighted images of the right knee are obtained, per presurgical protocol. There is markedly advanced degenerative change in the patellofemoral compartment primarily laterally. There is lateral subluxation of the patella. There is a small to moderate joint effusion. Extensor mechanism is intact. There is mild degenerative arthritic change medial and lateral compartment. There is degenerative change within the substance of the medial meniscus. Cruciate and collateral ligaments appear intact. No fracture or bone marrow replacement process. Conclusion: Degenerative change as described, most marked in the patellofemoral compartment. Gentry Melendez MD MR ORDERABLES * XR BONE LENGTH SCANOGRAM [[id number]] (04/23/2015 10:22 AM CDT) Anatomical Region Laterality Modality Lower Extremity, [facility] 04/23/2015 2:58 PM CDT Narrative 04/23/2015 3:33 PM CDT BONE LENGTH SCANOGRAM Indication: Right knee pain, preop. Findings: Frontal view of the pelvis, femurs and bilateral tibia and fibula show no evidence of acute fracture, subluxation or dislocation. At the level of the right femoral head, the measurement is equal to 93.75. The left femoral head is equal to 94. The medial tibial plateau on the right and left are at approximately the 44 location. The right talar dome is at the approximate 4.4 level and the left at the same level. Followup should be performed as needed. Edited by Danay Chaney on 04/23/2015 3:01 PM Procedure Note Alex Terry MD - 04/23/2015 BONE LENGTH SCANOGRAM Indication: Right knee pain, preop. Findings: Frontal view of the pelvis, femurs and bilateral tibia and fibula show no evidence of acute fracture, subluxation or dislocation. At the level of the right femoral head, the measurement is equal to 93.75. The left femoral head is equal to 94. The medial tibial plateau on the right and left are at approximately the 44 location. The right talar dome is at the approximate 4.4 level and the left at the same level. Followup should be performed as needed. Edited by Danay Chaney on 04/23/2015 3:01 PM Gentry Melendez MD DIAGNOSTIC IMAGING O [facility] Care Teams Build Engineer Relationship Specialty Start Date End Date Adelso Padilla MD [address] [place] [address] DR Radha BAGLEY [address] [place] [id number] PCP - General Internal Medicine 05/08/23
[2024-08-26 16:47] LABS: Alanine Aminotransferase 14 U/L (6-35); Albumin Level 3.7 g/dL (3.5-5.1); Alkaline Phosphatase 67 U/L (38-126); Anion Gap 5 mmol/L (4-12); Aspartate Amino Transferase 43 U/L (14-36); Bilirubin,Total 0.5 mg/dL (0.2-1.3); Blood Urea Nitrogen 26 mg/dL (7-17); Calcium 9.1 mg/dL (8.4-10.2); Carbon Dioxide 31 mmol/L (22-30); Chloride 106 mmol/L (98-107); Estimated Glomerular Filt Rate 51; Glucose 120 mg/dL (65-110); Potassium 4.2 mmol/L (3.4-5.0); Sodium 142 mmol/L (137-145)
[2024-08-26 17:04] LABS: Hemoglobin A1C 7.2 % (<5.7)
[2024-08-26 17:25] LABS: Creatinine Urine 185.6 mg/dL
[2024-08-26 17:30] LABS: MALB Creatinine Ratio 5.7 mg/g (0-30); Microalbumin Urine Random 10.6 mg/L (0-16.7)
== END 2024-08-26 09:53 | disposition home or self-care (01) ==
PROVIDERS: PCP Family Medicine; Visit Provider Family Medicine
DX: E11.9 Type 2 diabetes mellitus without complications (principal)
CPT/HCPCS: 36415; 80053; 82043; 83036

== ENCOUNTER 2024-10-21 08:46 | Outpatient (CLI) | payer OTHER, SELFPAY ==
--- OUTSIDE RECORDS SUMMARY | 2024-10-21 09:07 | XMS_ITS | Continuity of Care Document ---
Author Organization [facility] Address [address] [place] [address] Phone Care Team Providers Care Warehouse Delivery Manager Name Role Phone Ross Figueroa MD Unavailable Unavailable Procedures Procedure Date Work/medical disability examination [facility] X-ray exam of shoulder, complete 2011 Prolonged serv, w/o contact, 1st hr Advance Directives Directive Yes / No Effective Date File Name No Information Encounters Encounter Description Practice Location Reason(s) For Visit Diagnoses Date Provider Providers Copied on Encounter Work/medical disability examination [facility], [address] [place] [address], [id number], [place] tel:[phone] [facility]. [address] [facility] [address] [facility] [address] [facility] [address], [place], [place], [id number], . tel:[phone] Family History Family Member Type Diagnosis Age At Onset No Information Payers Payer name Insurance type Covered republican ID Authordorya tideepak(s) [facility] [id number] Social History Type Description Quantity Date Captured [...]
--- OUTSIDE RECORDS SUMMARY | 2024-10-21 09:07 | XMS_ITS | Referral Summary ---
Author Organization [facility] Address [address] [place] [address] Care Team Providers Care Clinical Office Technician Name Role Phone Jenna Villatoro MD Unavailable [phone] Harjinder Holloway MD Unavailable Ce Barnes DO Primary Care Provider + Encounters Date Type Department Care Team Description 09/18/2024 Orders Only [facility] Medical [facility] [address] [place] [phone] Leon Chung MD Dyslipidemia (Primary Dx) 09/18/2024 3:15 PM CDT Office Visit [facility] Cardiology [address] [place] [phone] Leon Chung MD Dyspnea, unspecified type (Primary Dx) from Last 3 Months Allergies No known active allergies Medications aspirin 81 mg chewable tablet Take 1 tablet (81 mg total) by mouth daily 30 tablet 11 2 Active cholecalciferol (VITAMIN D-3) 5,000 unit capsuleIndicatio ns:Vitamin D Deficiency Take 1 capsule (5,000 Units total) by mouth supervisor photocomposition before breakfast Active lancets 30 gauge miscIndications: Diabetes Mellitus Use to check BG once daily. 100 each 3 3 Active blood-glucose meter kitIndications:T ype 2 diabetes mellitus with stage 3 chronic kidney disease, with long-term current use of insulin, unspecified whether stage 3a or 3b CKD (HCC) 1 each supervisor photocomposition before breakfast Use to check blood sugar daily 1 kit 3 Active blood glucose diagnostic (glucose blood) stripIndications :Type 2 diabetes mellitus with stage 3 chronic kidney disease, with long-term current use of insulin, unspecified whether stage 3a or 3b CKD (HCC) Use to check blood sugar daily 100 each 11 3 Active rosuvastatin (CRESTOR) 10 mg tablet TAKE 1 TABLET BY MOUTH EVERY MORNING 90 tablet 3 4 Active losartan (COZAAR) 25 mg tabletIndication s:Essential hypertension,Pal pitations,Dyslip idemia TAKE 1 TABLET BY MOUTH EVERY DAY 90 tablet 1 4 Active meloxicam (MOBIC) 7.5 mg tabletIndication s:pain Take 1 tablet (7.5 mg total) by mouth daily as needed for pain 4 Active acetaminophen (TYLENOL) 500 mg tabletIndication s:Pain Take 2 tablets (1,000 mg total) by mouth every 6 (six) hours as needed for pain 3 Active fluticasone propionate (FLONASE) 50 mcg/actuation nasal sprayIndications :Allergic Conjunctivitis,A llergic Rhinitis Administer 1 spray into each nostril daily as needed for rhinitis or allergies Active OMEPRAZOLE-SODIU M BICARBONATE ORALIndications: Treatment of Non-Bleeding Gastric Disorder Take 1 capsule by mouth daily as needed (acid reflux) Zegerid Active furosemide (LASIX) 40 mg tabletIndication s:Edema Take 1 tablet (40 mg total) by mouth 2 (two) times a day 60 tablet 11 4 Active spironolactone (ALDACTONE) 50 mg tablet TAKE 1 TABLET BY MOUTH EVERY DAY 90 tablet 1 4 Active apixaban (ELIQUIS) 5 mg tablet Take 1 tablet (5 mg total) by mouth 2 (two) times a day 180 tablet 1 4 Active metoprolol XL (TOPROL-XL) 25 mg extended release tablet Take 1 tablet (25 mg total) by mouth 2 (two) times a day 180 tablet 1 4 Active potassium chloride ER 20 mEq CR tablet Take 1 tablet (20 mEq total) by mouth 2 (two) times a day Active Active Problems Problem Noted Date Diagnosed Date Valvular heart disease 07/08/2024 S/P cataract extraction, right 04/17/2024 Assessment & Plan (05/13/2024 11:12 AM RETAIL DIRECTOR): POM #1 s/p CE/PCIOL - Doing well, vision and IOP as expected - Tapered off drops as instructed - Okay to resume normal activities - MRx today, defer glasses RTC local optom for MRx and routine eye exam, F/u UES prn Assessment & Plan (04/21/2024 2:28 PM CDT): POW #1 s/p CE/PCIOL - Doing well, vision and IOP as expected - D/C moxifloxacin - Taper prednisolone TIDx 1week, BIDx1 week, daily x 1 week then stop - Reviewed signs/symptoms endophthalmitis, RT/RD; patient to call immediately if any worsening vision, pain, redness, flashes/floaters/curtains. - Avoid lifting/bending/swimming for one more week. Protective eyewear during day. Okay to discontinue Willis shield at night. - RTC 1 month for DFEx, MRx Assessment & Plan (04/17/2024 1:06 PM CDT): POD1 Extraction Cataract - Phacoemulsification And Lens Implant - Right Postoperative instructions were given. The patient is to use: ofloxacin QID X 1 week Prednisolone Acetate 1% QID Patient is to wear the shield at bedtime X 1 week. Signs, symptoms of retinal detachment, tear, hole, and endophthalmitis were reviewed and the patient is to call immediately for concerns. We discussed that things should improve until they stabilize. Should there be any worsening of pain, vision, or redness the patient is to call. Followup 1 week or sooner for concerns. Combined forms of age-related cataract of right eye 04/03/2024 Vitreous floaters of right eye 04/02/2024 Assessment & Plan (04/02/2024 3:17 PM CDT): Notes chronic floaters, Columba-, no flashes of light or recent worsening of vision Monitor, discussed that CEIOL might worsen symptoms transiently but brain will learn to adapt to the syneresis Combined forms of age-related cataract of left e ye 04/02/2024 Assessment & Plan (05/13/2024 11:13 AM RETAIL DIRECTOR): NVS, patient wishes to defer Assessment & Plan (04/02/2024 3:18 PM CDT): OD>OS Symptomatic over past few months Significant toric on IOLM and MRx, will obtain NOEMI Discussed toric vs conventional and residency education program. Patient elect to have resident participate in surgery. Type 2 diabetes mellitus with chronic kidney dis ease 12/21/2021 Assessment & Plan (08/02/2023 5:10 PM RETAIL DIRECTOR): A1c 6.5% improved from 6.6%, with diet alone. Congratulated patient on continued improvement, and will continue to monitor. Assessment & Plan (03/30/2023 11:25 AM CDT): Due for A1c, continue with lifestyle modifications. If A1c above goal consider starting on medication. Assessment & Plan (10/20/2022 11:24 AM CDT): Due for A1c, continue with lifestyle modifications. If A1c above goal consider starting on medication. Assessment & Plan (06/15/2022 12:45 PM RETAIL DIRECTOR): A1c 7.1% today. Prefers to stay off meds and working on diet and exercise. Notes her levels are up given recent steroid injections for knee pain. She will discuss more with Dr Gonzalez Discussed importance of low gi diet and regular exercise Provided education on DM Discussed importance of annual eye exams and daily foot exam On statins Assessment & Plan (05/19/2022 10:52 AM RETAIL DIRECTOR): Not on meds for this. States A1c has been fine and she does not want to start anything . She does not want to be on Jardiance either. Pt wishes to discuss further with Dr Acuna or cardiology and does not wish to make any changes today Assessment & Plan (03/27/2022 3:26 PM CDT): Not taking metformin. Taking jardiance. She is working on diet and exercise. A1c improved today from prior check. Increasing jardiance. Assessment & Plan (12/21/2021 11:05 AM CDT): A1c up to 6.8% but she has been on steroids Discussed risks/benefits of SGLT-2i class and she is interested in trying one Encouraged healthy diet and regular exercise Chronic kidney disease (CKD), stage III (moderat e) 12/21/2021 Assessment & Plan (03/30/2023 11:26 AM CDT): Due for labs, will continue to monitor Assessment & Plan (06/15/2022 12:47 PM RETAIL DIRECTOR): Does not wish to be on Jardiance Discussed importance of blood pressure and blood sugar control Assessment & Plan (03/27/2022 3:15 PM CDT): BMP today. Will continue jardiance. Knows to avoid NSAIDs. Will increase jardiance to 25mg Assessment & Plan (12/21/2021 11:05 AM CDT): Update creatinine today will avoid NSAIDs Starting SGLT-2i today for kidney protection assuming creatinine has not worsened Thumb pain, right 11/30/2020 Assessment & Plan (11/30/2020 11:33 AM CDT): Exam most concerning for gout, especially given onset after eating lots of crab legs Will check labs and plain films to assess for other etiologies Plan to recheck uric acid with labs at her [facility] Plan to treat with indomethacin assuming kidney function normal - SER Intraductal papilloma 07/30/2020 Assessment & Plan (07/30/2020 12:18 PM RETAIL DIRECTOR): Plan is for surgical excision with Dr Garcia in the near future Primary osteoarthritis of left knee 08/23/2019 Assessment & Plan (03/30/2023 11:26 AM CDT): Follows with ortho, planning for knee replacement Assessment & Plan (03/30/2023 10:06 AM CDT): >>ASSESSMENT AND PLAN FOR KNEE PAIN, CHRONIC WRITTEN ON 01/29/2020 1:42 PM BY TRAY ACUNA MD She does have underlying OA Working hard on weight loss and staying active. Will mail home conditioning regimen as well Discussed risks of NSAIDs given that she is on blood thinner. She will try turmeric and topicals Assessment & Plan (03/30/2023 10:06 AM CDT): >>ASSESSMENT AND PLAN FOR KNEE PAIN, CHRONIC WRITTEN ON 10/28/2021 12:02 PM BY TRAY ACUNA MD She is preparing herself mentally for another knee replacement- possibly at the end of this year Encouraged to continue weight loss efforts Assessment & Plan (03/30/2023 10:06 AM CDT): >>ASSESSMENT AND PLAN FOR KNEE PAIN, CHRONIC WRITTEN ON 03/27/2022 3:08 PM BY IGNACIO BRUNO MD Undergoing evaluation for R knee replacement. Assessment & Plan (03/30/2023 10:06 AM CDT): >>ASSESSMENT AND PLAN FOR KNEE PAIN, CHRONIC WRITTEN ON 06/15/2022 12:49 PM BY ERIN KING PA S/p steroid injections- she plans to eventually get replacement Assessment & Plan (12/21/2021 10:49 AM CDT): Following with ortho for this and I think she does need to pursue surgery Discussed NSAIDs- she didn't think meloxicam was very helpful. Discussed Celebrex but her daughter just had a bad reaction to this and she is unwilling to try. Assessment & Plan (07/30/2020 12:17 PM RETAIL DIRECTOR): Following with ortho for this. Currently on meloxicam which has been very helpful. Discussed bleeding risk with concurrent NOAC. Will see if celebrex would be covered under her insurance. Started PPI in the meantime for gastric protection. Bilateral leg edema 12/16/2018 Assessment & Plan (03/30/2023 11:26 AM CDT): Stable on diuretic therapy as well as pumps. Assessment & Plan (07/21/2022 12:24 PM RETAIL DIRECTOR): Notes some worsening recently - recommend start back furosemide 40mg BID, and continue to monitor. If continues to notice weight gain, should contact cardiology. Assessment & Plan (06/15/2022 12:48 PM RETAIL DIRECTOR): Follows with cardiology continue lasix 40 mg BID as recommended by Dr Bucky Kinsey. Elevate foot, continue compression socks and watching diet Appropriate warnings reviewed Assessment & Plan (05/19/2022 11:24 AM RETAIL DIRECTOR): Still has L>R. US in ER was negative for DVT. She does have diastolic dysfunction. Will follow up with cards. Continue lasix and dietary recs and weight checks. Warnings reviewed. Elevating foot, compression socks and increasing physical activity RTC if sxs worsen or develop SOB Gave warnings for PE/DVT Assessment & Plan (04/04/2021 11:29 AM CDT): L>R Will check venous reflux studies to assess for why this is so asymmetric Otherwise likely a result of weight, diastolic dysfunction and improved with LE edema Assessment & Plan (04/01/2020 12:48 PM CDT): Improved with behavioral measures and she will continue Lasix + Kcl Assessment & Plan (01/29/2020 1:39 PM CDT): Improved with behavioral measures and she will continue Lasix + Kcl Assessment & Plan (07/29/2019 1:48 PM RETAIL DIRECTOR): Improved with compression stockings She can try Lasix + KCL PRN for this Assessment & Plan (12/16/2018 11:29 AM CDT): Likely related to obesity, chronic DVT, diastolic dysfunction Encouraged conservative mgmt but she really wants to try a stronger diuretic so will start Lasix PRN . She will take KCL on Lasix days. Morbid (severe) obesity due to excess calories 0 08/15/2018 Assessment & Plan (03/30/2023 10:05 AM CDT): >>ASSESSMENT AND PLAN FOR OBESITY WRITTEN ON 03/31/2019 1:21 PM BY TRAY ACUNA MD She has lost a good amount of weight but has plateaued in the last month. Encouraged her to continue plant-based lower carb diet. She has been walking more as well. Encouraged to continue efforts. Assessment & Plan (03/30/2023 10:05 AM CDT): >>ASSESSMENT AND PLAN FOR OBESITY WRITTEN ON 04/01/2020 12:37 PM BY ERIN KING PA Counseled on diet and exercise and continue these efforts Assessment & Plan (03/30/2023 10:05 AM CDT): >>ASSESSMENT AND PLAN FOR OBESITY WRITTEN ON 05/19/2022 10:54 AM BY ERIN KING PA Counseled on diet and exercise as tolerated Cards recommended sleep study, orders placed for sleep medicine to get this done Assessment & Plan (03/30/2023 10:05 AM CDT): >>ASSESSMENT AND PLAN FOR OBESITY WRITTEN ON 06/15/2022 12:45 PM BY ERIN KING PA Continue working on diet and exercise. Discussed sleep study but she declines and plans on addressing with Dr Acuna Assessment & Plan (03/27/2022 3:25 PM CDT): Working on exercise. Limited by knee pain. Increasing jardiance may help weight loss. Mild pulmonary hypertension 03/08/2018 Assessment & Plan (03/31/2019 1:47 PM CDT): Consider referral to sleep medicine given her snoring but she would like to lose weight and then re-eval Assessment & Plan (05/16/2018 5:01 PM RETAIL DIRECTOR): Minimally symptomatic (mild DURHAM) but this could be related to diastolic dysfunction as well Will do basic workup- start with CXR Consider PFTs, STEPHANI, and eval for chronic thromboembolic pHTN Chronic deep vein thrombosis (DVT) 02/21/2018 Assessment & Plan (03/27/2022 3:05 PM CDT): Taking eliquis BID. Assessment & Plan (12/21/2021 10:57 AM CDT): Encouraged compliance with Eliquis BID and she expressed understanding Assessment & Plan (04/01/2020 12:48 PM CDT): On Eliquis 5 mg. Assessment & Plan (03/31/2019 1:40 PM CDT): She had recurrence of DVT when she went off Eliquis Will continue indefinitely Assessment & Plan (12/16/2018 11:15 AM CDT): Now back on Eliquis with improvement in swelling Encouraged her to wear compression stockings as well Assessment & Plan (08/15/2018 1:22 PM RETAIL DIRECTOR): RLE DVT discovered 02/21/18- Now on Eliquis and doing fine. RLE pain and swelling significant improved. She does think that her symptoms started around the time of her right knee surgery but that was 2-3 years ago so unclear if this was provoked or unprovoked Will DC now that she has been treated for 6 months. If she has another DVT, she will need lifelong anticoagulation Assessment & Plan (05/16/2018 5:06 PM RETAIL DIRECTOR): RLE DVT discovered 02/21/18- Now on Eliquis and doing fine She does think that her symptoms started around the time of her right knee surgery but that was 2-3 years ago so unclear if this was provoked or unprovoked Will pursue 6 months AC but consider lifelong Essential hypertension 02/14/2018 Assessment & Plan (08/02/2023 5:10 PM RETAIL DIRECTOR): Stable well controlled on current regimen, will send in refills as needed Assessment & Plan (03/30/2023 11:25 AM CDT): Stable well controlled on current regimen, will send in refills as needed Assessment & Plan (10/20/2022 11:22 AM CDT): Normotensive on diuretic therapy, will continue to monitor, if elevates, consider adding beta enma. Assessment & Plan (07/21/2022 12:25 PM RETAIL DIRECTOR): Hypertension in office today, reports normal BPs at home. Will continue to monitor. Assessment & Plan (06/15/2022 12:46 PM RETAIL DIRECTOR): Well controlled on current regimen Encouraged pt to monitor BP intermittently at home and report back with values.Advised lifestyle measures for improving BP inc regular exercise, healthy diet, salt restriction and weight loss Bring BP cuff at next visit Lytes normal recently Assessment & Plan (05/19/2022 10:31 AM RETAIL DIRECTOR): Well controlled on current regimen Assessment & Plan (03/27/2022 3:02 PM CDT): Home BPs elevated in 130's140s/80s. Elevated in office today. On quinapril/hctz. Assessment & Plan (12/21/2021 11:05 AM CDT): Bps may be slightly above goal at home and very high today, maybe because of pain and prednisone Discussed adding amlodipine but she balked at the possibility of increased leg swelling Will add Jardiance 10mg daily and she will report back in 2 wks with Bps and how she is doing on the med and will consider further dose increase at that time Assessment & Plan (10/28/2021 12:00 PM CDT): Tried to add Bystolic but it caused increased edema Now just on quinapril/HCTZ Encouraged to monitor more regularly at home and call back with values Continue lifestyle measures Assessment & Plan (08/05/2021 1:40 PM RETAIL DIRECTOR): bP has been above goal Will add Bystolic 5mg daily Encouraged to monitor intermittently at home and report back with values Advised lifestyle measures for improving BP inc regular exercise, healthy diet, salt restriction and weight loss Assessment & Plan (04/04/2021 11:35 AM CDT): BP improved on recheck and she reports that she only ever checks BP in the mornings Continue current meds and she will keep a log x 2 wks with both AM and PM blood pressures Determine need for med adjustment or addition after review Continue healthy diet and exercise efforts Assessment & Plan (11/30/2020 11:20 AM CDT): BP controlled on home measurements and in the office today Continue current meds Assessment & Plan (07/30/2020 12:18 PM RETAIL DIRECTOR): Very well-controlled on current regimen. CTM Assessment & Plan (04/01/2020 12:37 PM CDT): At goal per home measurements. Encouraged her to continue working on healthy diet and exercise. Continue current regimen for now. Assessment & Plan (01/29/2020 1:40 PM CDT): At goal per home measurements. Encouraged her to continue working on healthy diet and exercise. Continue current regimen for now. Assessment & Plan (07/29/2019 4:36 PM RETAIL DIRECTOR): Borderline in the office today. Encouraged her to continue working on healthy diet and exercise. Continue current regimen for now. Assessment & Plan (03/31/2019 1:40 PM CDT): Controlled on current regimen Start Lasix PRN LE swelling+ KCL Check Cr, K Assessment & Plan (12/16/2018 11:22 AM CDT): Still above goal today but she will be working hard on healthy diet and exercise and so will defer making changes today Start Lasix PRN LE swelling+ KCL Assessment & Plan (12/03/2018 12:37 PM CDT): Above goal recently. Will repeat labs and plan to add Lasix which may help slightly with BP control. Assessment & Plan (08/15/2018 1:36 PM RETAIL DIRECTOR): Doing well on her home readings - continue quinapril/HTCZ 20/12.5mg 2 tabs daily Slightly high today but she attributes this to being somewhat late taking her BP meds Continue monitor intermittently at home and report back if consistently >130/80 Continue lifestyle measures for improving BP inc regular exercise, healthy diet, salt restriction and weight loss Assessment & Plan (05/16/2018 4:59 PM RETAIL DIRECTOR): Above goal today- encouraged to monitor intermittently at home and report back with values to determine need for med adjustment Advised lifestyle measures for improving BP inc regular exercise, healthy diet, salt restriction and weight loss Assessment & Plan (02/14/2018 1:14 PM CDT): Controlled on quinapril/HCTZ 20/25 Check BMP and UA EKG today Chronic midline low back pain with right-sided s ciatica 02/14/2018 Assessment & Plan (03/30/2023 10:06 AM CDT): >>ASSESSMENT AND PLAN FOR LOW BACK PAIN WRITTEN ON 08/05/2021 2:04 PM BY TRAY ACUNA MD Acute on chronic X-rays with mild arthritis in 2018 Favor myofascial etiology over more serious pathology. Will try gentle stretching, muscle relaxer as first steps (SER particularly risk of sedation). If not improving, will repeat X-rays and send for repeat course of PT Assessment & Plan (03/30/2023 10:06 AM CDT): >>ASSESSMENT AND PLAN FOR LOW BACK PAIN WRITTEN ON 10/28/2021 12:01 PM BY TRAY ACUNA MD This improved with conservative measures Assessment & Plan (07/29/2019 4:38 PM RETAIL DIRECTOR): Exam findings today most c/w right lumbar radiculopathy (S1) I encouraged her to reach out to her pain mgmt doc in case she would benefit from injection at this level (vs could symptoms be complication of recent LESI at that level)? They have most recent MRI results as well. I encouraged her to discuss next steps inc whether PT could be helpful. Assessment & Plan (08/15/2018 1:37 PM RETAIL DIRECTOR): Following with [facility] and next step is facet injection Encouraged to continue working on weight loss and regular exercise Assessment & Plan (07/22/2018 5:38 PM RETAIL DIRECTOR): Acute on chronic. Given that she has had LBP for years, will get lumbar and hip films today, especially given severity of symptoms and her fall over the summer. However I suspect that this is mostly myofascial given her exam. Will treat with meloxicam (reviewed risk of bleeding), cyclobenzaprine (reviewed risk of sedation/dizziness and driving cautioned), heating pads and referred to PT as well. Resolved Problems Problem Noted Date Diagnosed Date Resolved Date Sinus infection 05/19/2022 06/15/2022 Assessment & Plan (05/19/2022 10:27 AM RETAIL DIRECTOR): Given the duration of sxs, will rx with Augmentin, SER the mean time, continue recommended use of humidifier/steam inhalation/Flonase/netti-pots/saline nasal sprays along with OTC antihistamines For sore throat: consider gargling with either listerine mouth wash (alcohol free) or salt water, lozenges Counseled on avoiding OTC decongestants (oral and nasal) for >4-5 days . RTC if not better Gave warning for SOB, fever Chest pain, unspecified type 05/08/2022 03/30/2023 Assessment & Plan (05/19/2022 10:26 AM RETAIL DIRECTOR): S/p ER visit and negative for infarction. Med recs performed. Pt will be following with cards. Bilateral hearing loss due t o cerumen impaction 04/04/2021 03/30/2023 Sore throat 02/04/2021 04/04/2021 Assessment & Plan (02/04/2021 1:57 PM CDT): Pt is planning to go to or [facility] to get tested for strep/flu/covid Precautions reviewed Rest and hydration Rinse mouth with Listerine or lukewarm salt/water Soft liquid diet: can have ice chips (allow to melt in mouth before you swallow), avoid respiratory irritants. Can have honey and andreina tea. Lozenges may be helpful Calling in Augmentin as she has sinus congestion that is super bothersome (and with the weekend approaching)- she knows she needs try conservative measures before starting abx Continue flonase and antihistamines Appropriate warnings given Nipple discharge, bloody 07/23/2020 Medicare annual wellness visit, subsequent 03/31/2020 03/31/2020 Medicare annual wellness visit, initial 03/31/2020 04/04/2021 Encounter for Medicare annual wellness exam 03/31/2019 03/30/2023 Assessment & Plan (03/27/2022 3:33 PM CDT): Health maintenance issues addressed during this visit included the following: Cervical cancer screen: not needed s/p hysterectomy Breast cancer screen: screening mammo due after june Colorectal cancer screen: + polyps in the past. Had colonoscopy in 2019 and is due for repeat in 5 yrs Osteoporosis screen: referred today Vaccines: Influenza recommended Td/Tdap thinks UTD Shingrix 2/2 complete PCV 20 due COVID 2/2 complete Assessment & Plan (04/04/2021 11:19 AM CDT): Health maintenance issues addressed during this visit included the following: Cervical cancer screen: not needed s/p hysterectomy Breast cancer screen: had bx last fall; screening mammo due in the next month or two Colorectal cancer screen: + polyps in the past. Had colonoscopy in 2018 and is due for repeat in 5 yrs Osteoporosis screen: referred today Vaccines: Influenza recommended Td/Tdap thinks UTD Shingrix 2/2 complete Pneumovax UTD 2019 COVID 2/2 complete Assessment & Plan (04/01/2020 1:00 PM CDT): Health maintenance issues addressed during this visit included the following: Cervical cancer screen: not needed s/p hysterectomy Breast cancer screen: BiRads 09 Mar 2019 - she will update this in April 2020 - does not need an order from me today. Colorectal cancer screen: + polyps in the past. Had colonoscopy in 2019 and is due for repeat in 5 yrs Osteoporosis screen: at 65 Vaccines: Influenza recommended Td/Tdap thinks UTD Shingrix 2/2 complete Prevnar at 65 Pneumovax states she might be UTD Assessment & Plan (03/31/2019 1:37 PM CDT): Health maintenance issues addressed during this visit included the following: Cervical cancer screen: not needed s/p hysterectomy Breast cancer screen: BiRads 09 Mar 2019 Colorectal cancer screen: + polyps in past and she just got notice that she is due -> referred today Osteoporosis screen: at 65 Hepatitis C: screen with labs Vaccines: Influenza recommended Td/Tdap thinks UTD Shingrix 2/2 complete Prevnar at 65 Pneumovax updated today Flank pain 03/03/2019 03/30/2023 Assessment & Plan (03/31/2019 1:30 PM CDT): Eventually resolved but took a while Will check US for this and to f/o cyst on kidney Assessment & Plan (03/03/2019 5:02 PM CDT): Suspect MSK but will check UA to r/o renal pathology Check X-rays of rib and CXR to r/o bony abnormality. Will treat with tylenol 1g Q8hrs, lidocaine patch, muscle relaxer (SER). Consider imaging if worsening over time. Type 2 diabetes mellitus 12/04/2018 Assessment & Plan (10/28/2021 12:01 PM CDT): Last A1c 6.3% and weight stable since that time. Fasting BG 110 this morning. Continue current medication regimen along with lifestyle measures Assessment & Plan (08/05/2021 1:33 PM RETAIL DIRECTOR): A1c looks good at 6.3%- controlled with healthy diet and exercise efforts. Continue these efforts On statin Check microalbumin today but on ACEI Assessment & Plan (04/04/2021 11:11 AM CDT): A1c 6.1% today, down from 6.5%, controlled with healthy diet and exercise efforts. Continue these efforts Scheduled for eye exam On statin Check microalbumin today but on ACEI Assessment & Plan (11/30/2020 11:18 AM CDT): A1c up slightly to 6.5% today- still at goal. She has gained a couple pounds and will work on healthy diet and regular exercise to get her weight back down. Assessment & Plan (07/30/2020 12:18 PM RETAIL DIRECTOR): Controlled with diet- A1c 6.1% today. Congratulated on healthy diet efforts and she will continue. Encouraged exercise. Assessment & Plan (04/01/2020 1:37 PM CDT): Fasting BGs in range, seems to be well-controlled with healthy diet. She was offered Metformin but does not want to start medication. She does not want to be a diabetic .Continue working on healthy diet and regular exercise. She is now on rosuvastatin 10mg daily Pt has toe nail fungus -advised to follow up with her laundry pricing clerk and maintain good hygiene. She does not want any meds today Assessment & Plan (01/29/2020 1:38 PM CDT): Fasting BGs in range, seems to be well-controlled with healthy diet. Continue working on healthy diet and regular exercise. She is now on rosuvastatin 10mg daily Assessment & Plan (07/29/2019 1:43 PM RETAIL DIRECTOR): Continues to be diet-controlled based on A1c 6.1% today. Continue working on healthy diet and regular exercise. She is now on rosuvastatin 5mg daily Assessment & Plan (03/31/2019 1:42 PM CDT): Diet-controlled based on A1c 6.0% today. Congratulated on her success. She is hesitant to try statin. ASCVD 15.6%. She is amenable to trying a low dose of statin and she will start ASA as well. Check microalbumin today Needs dilated eye exam PVX updated today Assessment & Plan (03/03/2019 1:54 PM CDT): She has really changed her eating habits and has lost 21 pounds since last visit. Her BGs seem to be at goal. Will continue to monitor off metformin and check A1c next visit Assessment & Plan (12/16/2018 11:12 AM CDT): Confirmed with fasting BG 148 and A1c 7.0% Will start metformin 500mg daily and work up to 2 tabs daily as tolerated. Referred to a forest examiner and reviewed low GI diet and role of regular exercise. RTC 3 months and will discuss statin at that time Chest pain 12/03/2018 03/31/2019 Assessment & Plan (12/03/2018 12:39 PM CDT): Not anginal in character, no changes to EKG and she had negative stress test less than a yr ago. If recurrent, will treat with Zantac and she will alert me. Discussed anginal symptoms/red flags. Irregular heart beat 12/03/2018 021 Assessment & Plan (12/03/2018 12:37 PM CDT): Per her BP machine and she is experiencing intermittent palpitations as well. EKG today NSR. Will refer for event monitor. Diastolic dysfunction 03/08/20182022 Assessment & Plan (10/20/2022 11:23 AM CDT): Patient notes persistent weight gain despite taking medication as prescribed, including furosemide 40mg BID. She also is wearing compression socks daily. Will get BMP and BNP today, recommend she follow up with cardiology, could consider switching to torsemide if needed. Assessment & Plan (07/21/2022 12:25 PM RETAIL DIRECTOR): Has had 10 pound weight gain over the past month - had not been taking furosemide as prescribed. Will start back on BID dosing, and continue to monitor weight. If increases, will contact cardiology. Assessment & Plan (06/15/2022 12:51 PM RETAIL DIRECTOR): Per cardiology Assessment & Plan (05/19/2022 10:32 AM RETAIL DIRECTOR): Reviewed ER notes and diagnostics Assessment & Plan (05/16/2018 2:04 PM RETAIL DIRECTOR): Discussed importance of BP control, healthy diet, weight loss, and regular exercise Palpitations 02/14/2018 05/16/2018 Assessment & Plan (02/14/2018 1:27 PM CDT): EKG without rhythm disturbance Consider holter if progressive Leg swelling 02/14/2018 08/15/2018 Assessment & Plan (05/16/2018 2:02 PM RETAIL DIRECTOR): Suspect this is a combination of DVT and diastolic dysfunction Encouraged low salt diet, leg elevation, compression stockings, and regular exercise Assessment & Plan (02/14/2018 1:27 PM CDT): Suspect that she has diastolic dysfunction from HTN- will eval further with echo Check labs as below Encouraged salt restriction and weight loss Right upper quadrant pain 02/14/2018 Neoplasm of right breast 02/14/201802/2018 Assessment & Plan (02/14/2018 1:14 PM CDT): I am concerned for melanoma given that she reports that she had a mole on her breast that seemed to grow in the last year; also in the ddx would be an SK. I expressed my concerns and she will see her carpet layer helper and set up an appointment with Dr Neal SÁNCHEZ to have this evaluated. She likely needs diagnostic mammo + US for the right breast mass so we will order these if she cannot get into Dr Garcia quickly. Abnormal EKG 02/14/2018 05/16/2018 Assessment & Plan (02/14/2018 1:29 PM CDT): EKG with LAD and ST depression in inferior leads Referred for ICT TEACHER echo to r/o ischemia She does get some chest discomfort/SOB when she is yelling or emotionally distressed Immunizations Immunization Administration Dates Next Due Influenza, Quadrivalent, Spl it, Preservative Free, Intramuscular 04/08/2020,07/29/2019,05/21/2015 Pfizer SARS-CoV-2 Monovalent Vaccination (12+ Yrs) PURPLE 09/10/2020,08/21/2020 Pneumococcal Polysaccharide PPV23 03/31/2019 Tdap 03/31/2019 ZOSTER Recombinant 01/24/2018,09/18/2017 Social History Tobacco Use Types Packs/Day Years Used Date Smoking Tobacco: Never Smokeless Tobacco: Never Tobacco Cessation:Counseling Given: Not Answered Alcohol Use Standard Drinks/Week Comments No 0 (1 standard drink = 0.6 oz pur e alcohol) AUDIT-C Answer Date Recorded Q1: How often do you have a drink containing alcohol? Never 07/01/2024 Q2: How many drinks containi ng alcohol do you have on a typical day when you are drinking? Patient does not drink Q3: How often do you have si x or more drinks on one occasion? Never 07/01/2024 PHQ-2 Answer Date Recorded PHQ-2 Total Score (If total score is 3 or more points, staff should administer the PHQ-9) 0 03/30/2023 Personal Safety Answer Date Recorded Have you ever been in or are you currently in a harmful physical or emotional relationship or is someone making you feel afraid or unsafe? Denies 07/08/2024 Comments No Sex and Gender Information Value Date Recorded Sex Assigned at Not on file Legal Sex Female 8:49 PM RETAIL DIRECTOR Gender Identity Not on file Sexual Orientation Not on file Last Filed Vital Signs Vital Sign Reading Time Taken Comments Blood Pressure 134/80 09/18/2024 3:06 PM CDT Pulse 50 09/18/2024 3:06 PM CDT Temperature 36 C (96.8 F) 04/16/2024 10:40 AM CDT Respiratory Rate 15 09/18/2024 3:06 PM CDT Oxygen Saturation 99% 09/18/2024 3:06 PM CDT Inhaled Oxygen Concentration - - Weight 101.2 kg (223 lb) 09/18/2024 3:06 PM CDT Height 165.1 cm (5' 5 ) 07/08/2024 10:10 AM RETAIL DIRECTOR Body Mass Index 37.11 07/08/2024 10:10 AM RETAIL DIRECTOR Plan of Treatment Not on file Medical Devices Implanted Type Area [employer] Operator Device Identifier Shelf Expiration Date Model / Serial / Lot [employer] sent[employer] Lens Iol Toric Ii Posterior Biconvex Optic Single Piece Tecnis Eyhance 6.0x13.0 3.75x+21.0d Hydrophobic Acrylic [id number] - [id number] - [id number] Implanted:Qty: 1 on 04/16/2024 by Brigette Mederos MD at [facility] Advanced Medicine Lens Right: Eye [employer] sentron[employer] [id number] 09/01/2024 [id number] / [id number] / 0 Rt Total Knee Arthoplasty Knee [employer]IVING[employer] [id number] Marker Breast Biopsy Magseed L12 Cm Od18 Ga - [id number] Implanted:Qty: 2 on 08/25/2020 at [facility] GIVING[employer] 01/05/2022 [id number] / / Procedures Procedure Name Priority Date/Time Associated Diagnosis Comments EGFR STAT 07/08/2024 9:47 AM RETAIL DIRECTOR SCREENING MAMMOGRAM BILATERAL W NAMAN Schedule Routine, Read Routine (OP Routine) 11/14/2023 9:32 AM CDT Screening mammogram, encounter for POCT HEMOGLOBIN A1C Routine 08/02/2023 1:51 PM RETAIL DIRECTOR Type 2 diabetes mellitus with stage 3 chronic kidney disease, with long-term current use of insulin, unspecified whether stage 3a or 3b CKD (HCC) LIPID PANEL Routine 03/30/2023 10:53 AM CDT Medicare annual wellness visit, subsequent ALBUMIN CREATININE RATIO, URINE Routine 03/30/2023 10:49 AM CDT Medicare annual wellness visit, subsequent Type 2 diabetes mellitus with stage 3 chronic kidney disease, with long-term current use of insulin, unspecified whether stage 3a or 3b CKD (HCC) Stage 3 chronic kidney disease, unspecified whether stage 3a or 3b CKD (HCC) DEXA AXIAL SKELETON BONE DENSITY 1 OR MORE SITES Schedule Routine, Read Routine (OP Routine) 04/04/2021 12:14 PM CDT Encounter for Medicare annual wellness exam Asymptomatic menopause COLONOSCOPY 06/03/2019 1:42 PM RETAIL DIRECTOR HEPATITIS C ANTIBODY Routine 04/08/2019 1:47 PM CDT Encounter for preventative adult health care examination Encounter for hepatitis C screening test for low risk patient from Last 3 Months or Most Recently Relevant to Health Maintenance Results * (ABNORMAL) eGFR (07/08/2024 9:47 AM RETAIL DIRECTOR) eGFR 49(L) >=60 mL/min/1. 73 m2 Comment: Interpretive Data Reference Interval Normal >/= 90 mL/min/1.73m2 Mildly decreased* 60 - 89 mL/min/1.73m2 Mildly to moderately decreased 45 - 59 mL/min/1.73m2 Moderately to severely decreased 30 - 44 mL/min/1.73m2 Severely decreased 15 - 29 mL/min/1.73m2 Kidney Failure < 15 mL/min/1.73m2 *Relative to young adult level Estimated glomerular filtration rate is determined by the 2020 CKD-EPI equation recommended by the National Kidney Foundation (A Unifying Approach to GFR Estimation: Recommendations of the NKF-ASK Task Force on Reassessing the Inclusion of Race in Diagnosing Kidney Disease, JASN 202). The CKD-EPI equation should not be used for patients with unstable renal function and has not been validated in children and those over 70. Current interpretive data was last reviewed 2021. Blood 07/08/2024 9:47 AM RETAIL DIRECTOR 07/08/2024 9:52 AM RETAIL DIRECTOR us Leon Chung MD LAB BLOOD ORDERABLES Claudette orellana Result [facility] [address] [facility] Department of Laboratories [place], [place] [id number] * Screening Mammogram Bilateral W Naman (11/14/2023 9:32 AM CDT) Anatomical Region Laterality Modality Breast Bilateral Mammography Narrative 11/15/2023 11:02 AM CDT Mammogram Technique: Bilateral Digital Breast Tomosynthesis, Bilateral C-view 2D Screening mammogram. Views obtained: bilateral craniocaudal and bilateral mediolateral oblique. Computer Aided Detection was performed. Mammogram Findings: The present examination has been compared to prior imaging studies performed at [facility] on 04/29/2020, and at [facility] on 06/29/2021 and 09/25/2022. There are scattered areas of fibroglandular density. There is no suspicious abnormality in either breast. Impression: There is no mammographic evidence of malignancy. Annual screening mammography is recommended. OVERALL FINAL ASSESSMENT: BI-RADS CATEGORY 1: Negative. Procedure Note Janey Argueta MD - 11/15/2023 Mammogram Technique: Bilateral Digital Breast Tomosynthesis, Bilateral C-view 2D Screening mammogram. Views obtained: bilateral craniocaudal and bilateral mediolateral oblique. Computer Aided Detection was performed. Mammogram Findings: The present examination has been compared to prior imaging studies performed at [facility] on 04/29/2020, and at [facility] on 06/29/2021 and 09/25/2022. There are scattered areas of fibroglandular density. There is no suspicious abnormality in either breast. Impression: There is no mammographic evidence of malignancy. Annual screening mammography is recommended. OVERALL FINAL ASSESSMENT: BI-RADS CATEGORY 1: Negative. us Self Screening Mammogram IMG MAMMO PROCEDURES Fi nal Result * POCT hemoglobin A1c (08/02/2023 1:51 PM RETAIL DIRECTOR) Hemoglobin A1C, POC 6.5 % Blood 08/02/2023 1:51 PM RETAIL DIRECTOR Adelso Padilla MD POINT OF CARE TEST ORDER BAO Final Result * Lipid panel (03/30/2023 10:53 AM CDT) Cholesterol 177 30 - 199 mg/dL [facility] Comment: Interpretive Data Ages < or = 19 years Acceptable: <170 mg/dL Borderline high: 170-199 mg/dL High: >or= 200 mg/dL Ages > or = 20 years Desirable: <200 mg/dL Borderline high: 200-239 mg/dL High: >or= 240 mg/dL Literature References: 1. Expert Panel on Integrated Guidelines for Cardiovascular Health and Risk Reduction in Children and Adolescents. Pediatrics 2011;128:S213 2. NCEP Expert Panel. Circulation 2004;110:227 Current Interpretive Data was last revised on 2018. Triglycerides 48 <=149 mg/dL [facility] Comment: Interpretive Data Ages < or = 9 years Acceptable: <75 mg/dL Borderline high: 75-99 mg/dL High: >or= 100 mg/dL Ages 10 to 20 years Acceptable: <90 mg/dL Borderline high: 90-129 mg/dL High: >or= 130 mg/dL Ages > or = 20 years Desirable: <150 mg/dL Borderline high: 150-199 mg/dL High: 200-499 mg/dL Very high: >or= 499 mg/dL Literature References: 1. Expert Panel on Integrated Guidelines for Cardiovascular Health and Risk Reduction in Children and Adolescents. Pediatrics 2011;128:S213 2. NCEP Expert Panel. Circulation 2004;110:227 Current Interpretive Data was last revised on 2018. HDL 57 >=40 mg/dL [facility] Comment: Interpretive Data Ages < or = 19 years Acceptable: >45 mg/dL Borderline low: 40-45 mg/dL Low: <40 mg/dL Ages > or = 20 years Desirable: >or= 60 mg/dL Low: <40 mg/dL Literature References: 1. Expert Panel on Integrated Guidelines for Cardiovascular Health and Risk Reduction in Children and Adolescents. Pediatrics 2011;128:S213 2. NCEP Expert Panel. Circulation 2004;110:227 Current Interpretive Data was last revised on 2018. LDL, calculated 110 <=129 mg/dL [facility] Comment: Interpretive Data Ages < or = 19 years Acceptable: <110 mg/dL Borderline high: 110-129 mg/dL High: >or= 130 mg/dL Ages > or = 20 years Optimal: <100 mg/dL Near optimal: 100-129 mg/dL Borderline high: 130-159 mg/dL High: >160 mg/dL Literature References: 1. Expert Panel on Integrated Guidelines for Cardiovascular Health and Risk Reduction in Children and Adolescents. Pediatrics 2011;128:S213 2. NCEP Expert Panel. Circulation 2004;110:227 Current Interpretive Data was last revised on 2018. Non-HDL Cholesterol 120 mg/dL [facility] Comment: Interpretive Data Ages < or = 19 years Acceptable: <120 mg/dL Borderline high: 120-144 mg/dL High: >145 mg/dL Ages > or = 20 years When triglycerides are >200 mg/dL, Non-HDL cholesterol is a secondary target of therapy with treatment goals that are 30 mg/dL greater than the LDL cholesterol target. Literature References: 1. Expert Panel on Integrated Guidelines for Cardiovascular Health and Risk Reduction in Children and Adolescents. Pediatrics 2011;128:S213 2. NCEP Expert Panel. Circulation 2004;110:227 Current Interpretive Data was last revised on 2018. Chol/HDL ratio 3 [facility] Blood 03/30/2023 10:5 3 AM CDT 03/30/2023 2:30 PM CDT Adelso Padilla MD LAB BLOOD ORDERABLES Fin al Result [facility] Department [place] [address] * Albumin Creatinine Ratio, Urine (03/30/2023 10:49 AM CDT) Albumin Ur <12.0 mg/L [facility] Comment: Interpretive Data No reference range established. Current interpretive data was last revised 2018. Creatinine Ur 24.5 mg/dL [facility] Comment: Interpretive Data No reference range established. Current interpretive data was last revised 2018. Albumin Creatinine Ratio, Ur See Comment 1 - 29 mg/g [facility] Comment:Unable to calculate Urine 03/30/2023 10:4 9 AM CDT 03/30/2023 2:30 PM CDT us Adelso Padilla MD LAB URINE ORDERABLES Fin al Result [facility] [place] [address] * Dexa Axial Skeleton Bone Density 1 or 2 Site (04/04/2021 12:14 PM CDT) Anatomical Region Laterality Modality Body N/A Digital Radiogra phy 04/04/2021 1:27 PM CDT Impressions 04/05/2021 1:33 PM CDT 1. The bone mineral density of the lumbar spine is normal. 2. The bone mineral density of the left femoral neck is normal. 3. The bone mineral density of the left total hip is normal. 4. Overall, the above findings are normal by WHO criteria. 5. Calculation of fracture risk using the FRAX model is not appropriate in certain settings. It was not performed in this patient because the patient met the following condition(s): normal bone density. General comments regarding interpretation of bone density measurements: A) In children, premenopausal woman and males under age 50 not at increased risk for fractures only Z-scores, not T-scores are used to indicate risk. A Z-score above -2.0 is defined as within the expected range for age and Z-score at or less than -2.0 is below the expected range for age . A Z-score below the expected range for age in a patient with recent fractures and/or chronic corticosteroid treatment is consistent with a diagnosis of osteoporosis. B) In post menopausal women and males over 50, comparison of the measured bone mineral density with the average value in young normal subjects (the T-score ) has been found to be useful in assessing fracture risk. Fracture risk approximately doubles for each 1.0 standard deviation (SD) in individual's hip or spine bone mineral density is below the average value of young normal subjects. The World Health Organization (WHO) has defined T-scores of -1.0 to -2.5 as diagnostic of low bone mass (OSTEOPENIA), and T-scores of -2.5 or lower to be diagnostic of OSTEOPOROSIS, based on the site of lowest bone density. Note that there will be a change in reporting format and reference databases as patients move from the younger population (group A) to the older population (group B) The National Osteoporosis Foundation (www.nof.org) recommends adequate intake of calcium and vitamin D and regular weight-bearing exercise in all patients. They recommend pharmacologic treatment in postmenopausal women and men age 50 and older presenting with any of the followin) Osteoporosis, after appropriate evaluation to exclude secondary causes. 2) A hip or vertebral (clinical or radiographic) fracture, regardless of the bone density. 3) Low bone mass (Osteopenia) and one or more of: other prior fractures, secondary causes associated with high risk of fracture (such as glucocorticoid use or total immobilization), or computed high risk of fracture (10-yr probability of hip fracture >= 3% or a 10-yr probability of any major osteoporosis-related fracture >= 20% based on the [place].-adapted WHO algorithm), available at http://www.shef.ac.uk/FRAX). Dictated by: Tray Coley MD The radiology attending physician has personally reviewed this study, and had reviewed and/or edited this written report and agrees with it. Electronically signed by: Floyd Vo MD, Ph.D Narrative 04/05/2021 1:33 PM CDT BONE DENSITOMETRY OF THE SPINE AND HIP DATE OF STUDY: 04/04/2021 HISTORY: 65-year-old postmenopausal woman with no recent fractures. She is being treated with no bone medications. Evaluate bone mineral density. Additional risk factors for fracture: None. FINDINGS (SPINE): The bone mineral density of L1-L4 was assessed by dual-energy x-ray absorptiometry. The average bone mineral density within this region is 0.978 gm/sq-cm. This is 0.4 standard deviations above the mean of the average bone mineral density for age- and gender-matched subjects (the Z-score). It is 0.6 standard deviations below the mean peak bone mineral density in young adults (the T-score). FINDINGS (FEMORAL NECK): The bone mineral density of the left femoral neck was assessed by dual-energy x-ray absorptiometry. The average bone mineral density within the femoral neck region is 0.882 gm/sq-cm. This is 0.8 standard deviations above the mean of the average bone mineral density for age- and gender-matched subjects (the Z-score). It is 0.3 standard deviations above the mean peak bone mineral density in young adults (the T-score). FINDINGS (TOTAL HIP): The bone mineral density of the left hip was assessed by dual-energy x-ray absorptiometry. The average bone mineral density within the total hip region is 0.983 gm/sq-cm. This is 0.7 standard deviations above the mean of the average bone mineral density for age- and gender-matched subjects (the Z-score). It is 0.3 standard deviations above the mean peak bone mineral density in young adults (the T-score). SUMMARY OF CURRENT RESULTS: Region BMD T-score Z-score AP Spine (L1-L4) 0.978 -0.6 0.4 Femoral Neck (Left) 0.882 0.3 0.8 Total Hip (Left) 0.983 0.3 0.7 Procedure Note Floyd Abad MD PhD - 04/05/2021 BONE DENSITOMETRY OF THE SPINE AND HIP DATE OF STUDY: 04/04/2021 HISTORY: 65-year-old postmenopausal woman with no recent fractures. She is being treated with no bone medications. Evaluate bone mineral density. Additional risk factors for fracture: None. FINDINGS (SPINE): The bone mineral density of L1-L4 was assessed by dual-energy x-ray absorptiometry. The average bone mineral density within this region is 0.978 gm/sq-cm. This is 0.4 standard deviations above the mean of the average bone mineral density for age- and gender-matched subjects (the Z-score). It is 0.6 standard deviations below the mean peak bone mineral density in young adults (the T-score). FINDINGS (FEMORAL NECK): The bone mineral density of the left femoral neck was assessed by dual-energy x-ray absorptiometry. The average bone mineral density within the femoral neck region is 0.882 gm/sq-cm. This is 0.8 standard deviations above the mean of the average bone mineral density for age- and gender-matched subjects (the Z-score). It is 0.3 standard deviations above the mean peak bone mineral density in young adults (the T-score). FINDINGS (TOTAL HIP): The bone mineral density of the left hip was assessed by dual-energy x-ray absorptiometry. The average bone mineral density within the total hip region is 0.983 gm/sq-cm. This is 0.7 standard deviations above the mean of the average bone mineral density for age- and gender-matched subjects (the Z-score). It is 0.3 standard deviations above the mean peak bone mineral density in young adults (the T-score). SUMMARY OF CURRENT RESULTS: Region BMD T-score Z-score AP Spine (L1-L4) 0.978 -0.6 0.4 Femoral Neck (Left) 0.882 0.3 0.8 Total Hip (Left) 0.983 0.3 0.7 IMPRESSION: 1. The bone mineral density of the lumbar spine is normal. 2. The bone mineral density of the left femoral neck is normal. 3. The bone mineral density of the left total hip is normal. 4. Overall, the above findings are normal by WHO criteria. 5. Calculation of fracture risk using the FRAX model is not appropriate in certain settings. It was not performed in this patient because the patient met the following condition(s): normal bone density. General comments regarding interpretation of bone density measurements: A) In children, premenopausal woman and males under age 50 not at increased risk for fractures only Z-scores, not T-scores are used to indicate risk. A Z-score above -2.0 is defined as within the expected range for age and Z-score at or less than -2.0 is below the expected range for age . A Z-score below the expected range for age in a patient with recent fractures and/or chronic corticosteroid treatment is consistent with a diagnosis of osteoporosis. B) In post menopausal women and males over 50, comparison of the measured bone mineral density with the average value in young normal subjects (the T-score ) has been found to be useful in assessing fracture risk. Fracture risk approximately doubles for each 1.0 standard deviation (SD) in individual's hip or spine bone mineral density is below the average value of young normal subjects. The World Health Organization (WHO) has defined T-scores of -1.0 to -2.5 as diagnostic of low bone mass (OSTEOPENIA), and T-scores of -2.5 or lower to be diagnostic of OSTEOPOROSIS, based on the site of lowest bone density. Note that there will be a change in reporting format and reference databases as patients move from the younger population (group A) to the older population (group B) The National Osteoporosis Foundation (www.nof.org) recommends adequate intake of calcium and vitamin D and regular weight-bearing exercise in all patients. They recommend pharmacologic treatment in postmenopausal women and men age 50 and older presenting with any of the followin) Osteoporosis, after appropriate evaluation to exclude secondary causes. 2) A hip or vertebral (clinical or radiographic) fracture, regardless of the bone density. 3) Low bone mass (Osteopenia) and one or more of: other prior fractures, secondary causes associated with high risk of fracture (such as glucocorticoid use or total immobilization), or computed high risk of fracture (10-yr probability of hip fracture >= 3% or a 10-yr probability of any major osteoporosis-related fracture >= 20% based on the [place]adapted WHO algorithm), available at http://www.shef.ac.uk/FRAX). Dictated by: Tray Coley MD The radiology attending physician has personally reviewed this study, and had reviewed and/or edited this written report and agrees with it. Electronically signed by: Floyd Vo MD, Ph.D us Tray Acuna MD IMG DXA PROCEDURES Final Result * COLONOSCOPY (06/03/2019 1:42 PM RETAIL DIRECTOR) Anatomical Region Laterality Modality Other Narrative Procedure Note Ross Sheppard MD - 06/03/2019 1:42 PM [facility] Patient Name: Asiya Singleton Procedure Date: 06/03/2019 1:42 PM Date of : 1955 Admit Type: Outpatient Age: 64 Gender: Female Attending MD: Ross Sheppard M.D. Room: [facility] ENDOSCOPY ROOM 5 Note Status: Finalized Procedure: Colonoscopy Indications: High risk colon cancer surveillance: Personalhistory of colonic polyps, Last colonoscopy: date unknown (unable to locate last colonoscopy report) Referring MD: Tray Acuna M.D. Providers: Ross Sheppard M.D. Medicines: Monitored Anesthesia Care Complications: No immediate complications. Estimated Blood Loss: Estimated blood loss was minimal. Procedure: Pre-Anesthesia Assessment: - Prior to the procedure, a History and Physical was performed, and patient medications, allergies and sensitivities were reviewed. The patient's toleranceof previous anesthesia was reviewed. - The risks and benefits of the procedure and the sedation options and risks were discussed with the patient. All questions were answered and informed consent was obtained. - Immediately prior to administration ofmedications, the patient was re-assessed for adequacy to receive sedatives. The benefits, risks and alternatives of theprocedure and sedation were discussed and informed consent was obtained. All questions were answered. Please referto the signed informed consent document in the medical record. The scope was passed under direct vision.The [id number] endoscope was introduced throughthe anus and advanced to the terminal ileum. The colonoscopy was performed without difficulty. The patient tolerated the procedure well. The quality of the bowel preparation was evaluated using the BBPS (Bradley Bowel Preparation Scale) with scores of:Right Colon = 2 (minor amount of residual staining, small fragments of stool and/or opaque liquid, but mucosa seen well), Transverse Colon = 3 (entire mucosa seen well with no residual staining, small fragments of stool or opaque liquid) and Left Colon = 3 (entire mucosa seen well with no residual staining, small fragments of stool or opaque liquid). The total BBPS score equals 8. The quality of the bowel preparation was good. The bowel preparation used was GoLYTELY. Bowel prep was administered using a split dose. The quality of the bowel preparation was good. Findings: The terminal ileum appeared normal. Multiple diverticula were found in the entire colon. A 2 mm polyp was found in the ascending colon. The polyp was sessile. The polyp was removed with a cold biopsy forceps. Resection and retrieval were complete. A 4 mm polyp was found in the sigmoid colon. The polyp was sessile.The polyp was removed with a cold biopsy forceps. Resection and retrieval were complete. Internal hemorrhoids were found during retroflexion. The hemorrhoids were medium-sized and Grade I (internal hemorrhoids that do not prolapse). Impression: - The examined portion of the ileum was normal. - Diverticulosis in the entire examined colon. - One 2 mm polyp in the ascending colon, removedwith a cold biopsy forceps. Resected and retrieved. - One 4 mm polyp in the sigmoid colon, removed witha cold biopsy forceps. Resected and retrieved. - Internal hemorrhoids. Recommendation: - Await pathology results. - Repeat colonoscopy in 5 years for surveillance. - High fiber diet. Attending Participation: I personally performed the entire procedure. Electronically signed by Ross Sheppard MD Ross Sheppard M.D. 06/03/2019 2:24:48 PM . Doris Whitaker M.D. Number of Addenda: 0 Note Initiated On: 06/03/2019 1:42 PM Recognized by the [employer] for promoting quality in endoscopy Ross Sheppard MD ENDOSCOPY PROCEDURES Final Result * Hepatitis C antibody (04/08/2019 1:47 PM CDT) Hep C Ab <0.1 0.0 - 0.9 s/co ratio [facility] - 01 Comment: Negative: < 0.8 Indeterminate: 0.8 - 0.9 Positive: > 0.9 The CDC recommends that a positive HCV antibody result be followed up with a HCV Nucleic Acid Amplification test (680739). Blood specimen (specimen) 04/08/2019 1:47 PM CDT 04/08/2019 Narrative [facility] - 04/09/2019 1:08 PM CDT Performed at: - [address] [id number] [employer]: Kailash Price PhD, Phone: [phone] Tray Acuna MD LAB MICROBIOLOGY - GENERAL ORDERABLES Final Result [facility] - 01 from Last 3 Months or Most Recently Relevant to Health Maintenance Insurance [employer] CHOICE PPO [employer] PPO [employer] PPO [employer] PPO Advance Directives For more information, please contact: [phone] * Full Code (Latest Code Status on File) Date Activated Date Inactivated Comments 07/08/2024 12:58 PM 07/09/2024 4:44 AM * Full Code Date Activated Date Inactivated Comments 05/09/2022 1:00 AM 05/12/2022 7:57 PM * Full Code Date Activated Date Inactivated Comments 06/03/2019 12:45 PM 06/03/2019 7:29 PM Care Teams Clinical Office Technician Relationship Specialty Start Date End Date Ce Barnes DO [facility] [address] [address] PCP - General Family Medicine 04/02/24 Jenna Villatoro MD Referring Physician Obstetrics and Gynecology 03/31/19 Harjinder Holloway MD Referring Physician Orthopedic Surgery 04/04/21
--- OUTSIDE RECORDS SUMMARY | 2024-10-21 09:07 | XMS_ITS | Clinical Summary ---
Author Organization [facility] Address [address] [place] [address] Care Team Providers Care Investigation Specialist Name Role Phone Jenna Villatoro MD Unavailable [phone] Harjinder Holloway MD Unavailable Ce Barnes DO Primary Care Provider + Allergies No known active allergies Medications aspirin 81 mg chewable tablet Take 1 tablet (81 mg total) by mouth daily 30 tablet 2 Active cholecalciferol (VITAMIN D-3) 5,000 unit capsuleIndicatio ns:Vitamin D Deficiency Take 1 capsule (5,000 Units total) by mouth sewing room supervisor before breakfast Active lancets 30 gauge miscIndications: Diabetes Mellitus Use to check BG once daily. 100 each 3 3 Active blood-glucose meter kitIndications:T ype 2 diabetes mellitus with stage 3 chronic kidney disease, with long-term current use of insulin, unspecified whether stage 3a or 3b CKD (HCC) 1 each sewing room supervisor before breakfast Use to check blood sugar [...] 04/17/2024 Assessment & Plan (05/13/2024 11:12 AM DROP WIRE ALINER): POM #1 s/p CE/PCIOL - Doing well, [...] (04/02/2024 3:17 PM CDT): Notes chronic floaters, [place]-, no flashes of light or recent worsening of vision Monitor, discussed that CEIOL might worsen symptoms transiently but brain will learn to adapt to the syneresis 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 Patient elect to have resident participate in surgery. Type 2 diabetes mellitus with chronic kidney dis ease 12/21/2021 Assessment & Plan (08/02/2023 5:10 PM DROP WIRE ALINER): A1c 6.5% improved from 6.6%, with diet [...] medication. Assessment & Plan (06/15/2022 12:45 PM DROP WIRE ALINER): A1c 7.1% today. Prefers to stay off [...] statins Assessment & Plan (05/19/2022 10:52 AM DROP WIRE ALINER): Not on meds for this. States A1c [...] monitor Assessment & Plan (06/15/2022 12:47 PM DROP WIRE ALINER): Does not wish to be on Jardiance [...] recheck uric acid with labs at her [facility] Plan to treat with indomethacin assuming kidney function normal - SER Intraductal papilloma 07/30/2020 Assessment & Plan (07/30/2020 12:18 PM DROP WIRE ALINER): Plan is for surgical excision with Dr [...] try. Assessment & Plan (07/30/2020 12:17 PM DROP WIRE ALINER): Following with ortho for this. Currently on meloxicam which has been very helpful. Discussed bleeding risk with concurrent NOAC. Will see if celebrex would be covered under her insurance. Started PPI in the meantime for gastric protection. Bilateral leg edema 12/16/2018 Assessment & Plan (03/30/2023 11:26 AM CDT): Stable on diuretic therapy as well as pumps. Assessment & Plan (07/21/2022 12:24 PM DROP WIRE ALINER): Notes some worsening recently - recommend start back furosemide 40mg BID, and continue to monitor. If continues to notice weight gain, should contact cardiology. Assessment & Plan (06/15/2022 12:48 PM DROP WIRE ALINER): Follows with cardiology continue lasix 40 mg BID as recommended by Dr Bucky Kinsey. Elevate foot, continue compression socks and watching diet Appropriate warnings reviewed Assessment & Plan (05/19/2022 11:24 AM DROP WIRE ALINER): Still has L>R. US in ER was [...] Kcl Assessment & Plan (07/29/2019 1:48 PM DROP WIRE ALINER): Improved with compression stockings She can try [...] re-eval Assessment & Plan (05/16/2018 5:01 PM DROP WIRE ALINER): Minimally symptomatic (mild DURHAM) but this could [...] well Assessment & Plan (08/15/2018 1:22 PM DROP WIRE ALINER): RLE DVT discovered 02/21/18- Now on Eliquis [...] anticoagulation Assessment & Plan (05/16/2018 5:06 PM DROP WIRE ALINER): RLE DVT discovered 02/21/18- Now on Eliquis and doing fine She does think that her symptoms started around the time of her right knee surgery but that was 2-3 years ago so unclear if this was provoked or unprovoked Will pursue 6 months AC but consider lifelong Essential hypertension 02/14/2018 Assessment & Plan (08/02/2023 5:10 PM DROP WIRE ALINER): Stable well controlled on current regimen, will send in refills as needed Assessment & Plan (03/30/2023 11:25 AM CDT): Stable well controlled on current regimen, will send in refills as needed Assessment & Plan (10/20/2022 11:22 AM CDT): Normotensive on diuretic therapy, will continue to monitor, if elevates, consider adding beta enma. Assessment & Plan (07/21/2022 12:25 PM DROP WIRE ALINER): Hypertension in office today, reports normal BPs at home. Will continue to monitor. Assessment & Plan (06/15/2022 12:46 PM DROP WIRE ALINER): Well controlled on current regimen Encouraged pt to monitor BP intermittently at home and report back with values.Advised lifestyle measures for improving BP inc regular exercise, healthy diet, salt restriction and weight loss Bring BP cuff at next visit Lytes normal recently Assessment & Plan (05/19/2022 10:31 AM DROP WIRE ALINER): Well controlled on current regimen Assessment & [...] measures Assessment & Plan (08/05/2021 1:40 PM DROP WIRE ALINER): bP has been above goal Will add [...] meds Assessment & Plan (07/30/2020 12:18 PM DROP WIRE ALINER): Very well-controlled on current regimen. CTM Assessment [...] now. Assessment & Plan (07/29/2019 4:36 PM DROP WIRE ALINER): Borderline in the office today. Encouraged her [...] control. Assessment & Plan (08/15/2018 1:36 PM DROP WIRE ALINER): Doing well on her home readings - continue quinapril/HTCZ 20/12.5mg 2 tabs daily Slightly high today but she attributes this to being somewhat late taking her BP meds Continue monitor intermittently at home and report back if consistently >130/80 Continue lifestyle measures for improving BP inc regular exercise, healthy diet, salt restriction and weight loss Assessment & Plan (05/16/2018 4:59 PM DROP WIRE ALINER): Above goal today- encouraged to monitor intermittently at home and report back with values to determine need for med adjustment Advised lifestyle measures for improving BP inc regular exercise, healthy diet, salt restriction and weight loss Assessment & Plan (02/14/2018 1:14 PM CDT): Controlled on quinapril/HCTZ Check BMP and UA EKG today Chronic midline low back pain with right-sided s ciatica 02/14/2018 Assessment & Plan (03/30/2023 10:06 AM CDT): >>ASSESSMENT AND PLAN FOR LOW BACK PAIN WRITTEN ON 08/05/2021 2:04 PM BY TRAY ACUNA MD Acute on chronic X-rays with mild arthritis in 2019 Favor myofascial etiology over more serious pathology. [...] measures Assessment & Plan (07/29/2019 4:38 PM DROP WIRE ALINER): Exam findings today most c/w right lumbar [...] helpful. Assessment & Plan (08/15/2018 1:37 PM DROP WIRE ALINER): Following with PMC and next step is facet injection Encouraged to continue working on weight loss and regular exercise Assessment & Plan (07/22/2018 5:38 PM DROP WIRE ALINER): Acute on chronic. Given that she has [...] 06/15/2022 Assessment & Plan (05/19/2022 10:27 AM DROP WIRE ALINER): Given the duration of sxs, will rx [...] 03/30/2023 Assessment & Plan (05/19/2022 10:26 AM DROP WIRE ALINER): S/p ER visit and negative for infarction. Med recs performed. Pt will be following with cards. Bilateral hearing loss due t o cerumen impaction 04/04/2021 03/30/2023 Sore throat 02/04/2021 04/04/2021 Assessment & Plan (02/04/2021 1:57 PM CDT): Pt is planning to go to or [facility] to get tested for strep/flu/covid Precautions reviewed [...] measures Assessment & Plan (08/05/2021 1:33 PM DROP WIRE ALINER): A1c looks good at 6.3%- controlled with [...] down. Assessment & Plan (07/30/2020 12:18 PM DROP WIRE ALINER): Controlled with diet- A1c 6.1% today. Congratulated [...] fungus -advised to follow up with her rd project manager and maintain good hygiene. She does not want any meds today Assessment & Plan (01/29/2020 1:38 PM CDT): Fasting BGs in range, seems to be well-controlled with healthy diet. Continue working on healthy diet and regular exercise. She is now on rosuvastatin 10mg daily Assessment & Plan (07/29/2019 1:43 PM DROP WIRE ALINER): Continues to be diet-controlled based on A1c [...] tabs daily as tolerated. Referred to a cable maintainer and reviewed low GI diet and role [...] needed. Assessment & Plan (07/21/2022 12:25 PM DROP WIRE ALINER): Has had 10 pound weight gain over the past month - had not been taking furosemide as prescribed. Will start back on BID dosing, and continue to monitor weight. If increases, will contact cardiology. Assessment & Plan (06/15/2022 12:51 PM DROP WIRE ALINER): Per cardiology Assessment & Plan (05/19/2022 10:32 AM DROP WIRE ALINER): Reviewed ER notes and diagnostics Assessment & Plan (05/16/2018 2:04 PM DROP WIRE ALINER): Discussed importance of BP control, healthy diet, weight loss, and regular exercise Palpitations 02/14/2018 05/16/2018 Assessment & Plan (02/14/2018 1:27 PM CDT): EKG without rhythm disturbance Consider holter if progressive Leg swelling 02/14/2018 08/15/2018 Assessment & Plan (05/16/2018 2:02 PM DROP WIRE ALINER): Suspect this is a combination of DVT [...] my concerns and she will see her beer brewer and set up an appointment with Dr Neal SÁNCHEZ to have this evaluated. She likely needs diagnostic mammo + US for the right breast mass so we will order these if she cannot get into Dr Garcia quickly. Abnormal EKG 02/14/2018 05/16/2018 Assessment & Plan (02/14/2018 1:29 PM CDT): EKG with LAD and ST depression in inferior leads Referred for FIRST CRUSHER echo to r/o ischemia She does get some chest discomfort/SOB when she is yelling or emotionally distressed Encounters Date Type Department Care Team Description 09/18/2024 3:15 PM CDT Office Visit [facility] Cardiology [address] [place] [address] [place] [phone] Leon Chung MD Dyspnea, unspecified type (Primary Dx) 09/18/2024 Orders Only [facility] Cardiology [address] [place] [phone] Leon Chung MD Dyslipidemia (Primary Dx) from Last 3 Months Immunizations Immunization Administration Dates Next Due Influenza, Quadrivalent, Spl it, Preservative Free, Intramuscular 04/08/2020,07/29/2019,05/21/2015 Pfizer SARS-CoV-2 Monovalent Vaccination (12+ Yrs) PURPLE 09/10/2020,08/21/2020 Pneumococcal Polysaccharide PPV23 03/31/2019 Tdap 03/31/2019 ZOSTER Recombinant 01/24/2018,09/18/2017 Surgical History Surgery Date Site/Laterality Comments ROTATOR CUFF REPAIR Right Rotator Cuff Repair - 2010 (Added by TW Conv) HYSTERECTOMY Total Hysterectomy - 1999 (abdomen) (Added by TW Conv) COLONOSCOPY 07/09/2019 - 07/08/2020 KNEE SURGERY 05/09/2023 - 06/07/2023 Left Total knee replacement BREAST LUMPECTOMY Left papilloma BREAST BIOPSY 06/25/2020 Right papilloma x 2 BREAST BIOPSY 07/16/2020 Left papilloma TONSILLECTOMY as a child (13 yrs old) [place] ARTHROPLASTY KNEE TIBIAL PLATEAU 07/09/2014 - 07/08/2015 Right Knee Replacement - (Added by TW Conv) HAND SURGERY 07/09/2005 - 07/08/2006 Right torn ligament in small pinky finger, pin placed REPLACEMENT TOTAL KNEE 07/09/2015 - 07/08/2016 Right CATARACT EXTRACTION W/ INTRAOCULAR LENS IMPLANT 07/09/2023 - 07/08/2024 Bilateral Medical History Medical History Date Comments Personal history of other di seases of the circulatory system History of hypertension - (A dded by TW Conv) Personal history of other di seases of the musculoskeletal system and connective tissue History of arthritis - (Adde d by TW Conv) Personal history of healed t raumatic fracture History of fracture of finge r - (Added by TW Conv) Shingles Intraductal papilloma Colon polyp GERD (gastroesophageal reflux disease) Hypertension Hyperlipidemia Clot blood clot in b oth ankles History of DVT of lower extremity right lower extremity s/p knee replacement Type 2 diabetes mellitus (HCC) p t reports diet controlled Motion sickness CHF (congestive heart failure) (HCC) Paroxysmal atrial fibrillation (HCC) SOB (shortness of breath) on exertion Lymphedema Family History Medical History Relation Name Comments Hypertension Daughter Hyperlipidemia Mother Hypertension Mother Family history of hypertension - (Added by TW Conv) Osteoporosis Mother Family history of osteoporosis - (Added by TW Conv) Uterine cancer Mother Breast cancer Mother's Sister Family hist ory of breast cancer - DX in late 50's (Added by TW Conv) Hypertension Son Relation Name Status Comments Daughter Alive Mother Alive Mother's Sister Son Alive Social History Tobacco Use Types Packs/Day Years [...] on file Legal Sex Female 8:49 PM DROP WIRE ALINER Gender Identity Not on file Sexual Orientation Not on file Obstetrics History Para Term AB IAB SAB Ectopic Multiple Livin g Live Births 3 3 3 3 Date Outcome GA Total Labor Labor/2nd/3rd Weight Sex Type Anes PTL Isis A1 A5 Name Clin Term Term Term Last Filed Vital Signs Vital Sign Reading [...] cm (5' 5 ) 07/08/2024 10:10 AM DROP WIRE ALINER Body Mass Index 37.11 07/08/2024 10:10 AM DROP WIRE ALINER Plan of Treatment Health Maintenance Due Date Last Done Comments Hepatitis B Screening 1973 Pneumococcal vaccine 65+ (2 of 2 - PCV) 03/31/2020 03/31/2019 Osteoporosis Screening-Bone Density Scan 04/04/2023 04/04/2021 Hemoglobin A1C 01/31/2024 08/02/2023, 04/10, 03/30/2023, Additional history exists Covid-19 Vaccine (4 - 2023-2 5 season) 2024 04/22/2021, 09/10/2020, 08/21/2020 Influenza Vaccine (#1) 2024 , 07/29/2019, 05/21/2015 Albumin Creatinine Ratio, Urine 03/30/2024 03/30/2023, 12/21/2021, 04/08/2019 Depression Screening 03/30/2024 03/30/2023, 03/27/2022, 04/04/2021, Additional history exists Foot Exam 03/30/2024 03/30/2023 Lipid Panel 03/30/2024 03/30/2023, 11/07, 03/28/2022, Additional history exists Well Visit 65+ 03/30/2024 03/30/2023, 03/09, 03/27/2022, Additional history exists Colon Cancer Screening-Colonoscopy 06/03/2024 06/03/2019 Breast Cancer Screening-Mammogram 11/13/2024 11/14/2023, 09/25/2022, 06/29/2021, Additional history exists Dilated Eye Exam 05/13/2025 05/13/2024, , 07/11/2021 Fall Risk Assessment 07/08/2025 07/08/2024, 03/30/2023, 03/27/2022, Additional history exists eGFR 07/08/2025 07/08/2024, 03/10, 01/16/2023, Additional history exists DTaP/Tdap/Td Vaccine (2 - Td or Tdap) 03/31/2029 03/31/2019 Zoster Vaccine Completed 01/24/2018, 09/18/2017 Hepatitis C Screening Completed 04/08/2019 Colon Cancer Screening-CT Colonography Discontinued 06/03/2019 Colon Cancer Screening-DNA Stool Discontinued 06/03/20 19 Colon Cancer Screening-FIT Discontinued 06/03/2019 Colon Cancer Screening-Sigmoidoscopy Discontinued 06/03/2019 Medical Devices Implanted Type Area Biomedical Technician Device Identifier Shelf Expiration Date Model / Serial / Lot [id number] Lens Iol Toric Ii Posterior Biconvex Optic Single Piece [employer]nis Eyhance 6.0x13.0 3.75x+21.0d Hydrophobic Acrylic [id number] - [id number] - [id number] Implanted:Qty: 1 on 04/16/2024 by Brigette Mederos MD at [facility] Lens Right: Eye [employer] [id number] 09/01/2024 [id number] / [id number] / 0 Rt Total Knee Arthoplasty Knee [employer] [id number] Marker Breast Biopsy Magseed L12 Cm Od18 Ga - [id number] Implanted:Qty: 2 on 08/25/2020 at [facility] [employer] 01/05/2022 [id number] / / Procedures Procedure Name Priority Date/Time Associated Diagnosis Comments EGFR STAT 07/08/2024 9:47 AM DROP WIRE ALINER SCREENING MAMMOGRAM BILATERAL W NAMAN Schedule Routine, Read Routine (OP Routine) 11/14/2023 9:32 AM CDT Screening mammogram, encounter for POCT HEMOGLOBIN A1C Routine 08/02/2023 1:51 PM DROP WIRE ALINER Type 2 diabetes mellitus with stage 3 [...] exam Asymptomatic menopause COLONOSCOPY 06/03/2019 1:42 PM DROP WIRE ALINER HEPATITIS C ANTIBODY Routine 04/08/2019 1:47 PM CDT Encounter for preventative adult health care examination Encounter for hepatitis C screening test for low risk patient from Last 3 Months or Most Recently Relevant to Health Maintenance Results * (ABNORMAL) eGFR (07/08/2024 9:47 AM DROP WIRE ALINER) eGFR 49(L) >=60 mL/min/1. 73 m2 Comment: [...] of Race in Diagnosing Kidney Disease, JASN 2020). The CKD-EPI equation should not be used for patients with unstable renal function and has not been validated in children and those over 70. Current interpretive data was last reviewed 2021. Blood 07/08/2024 9:47 AM DROP WIRE ALINER 07/08/2024 9:52 AM DROP WIRE ALINER us Leon Chung MD LAB BLOOD ORDERABLES Claudette orellana Result [facility] [address] [facility] [place] [address] * Screening Mammogram Bilateral W Naman (11/14/2023 9:32 AM CDT) Anatomical Region Laterality Modality Breast Bilateral Mammography Narrative 11/15/2023 11:02 AM CDT Mammogram Technique: Bilateral Digital Breast Tomosynthesis, Bilateral C-view 2D Screening mammogram. Views obtained: bilateral craniocaudal and bilateral mediolateral oblique. Computer Aided Detection was performed. Mammogram Findings: The present examination has been compared to prior imaging studies performed at [facility] on 04/29/2020, and at [facility] on 06/29/2021 and 09/25/2022. There are scattered [...] compared to prior imaging studies performed at [facility] on 04/29/2020, and at [facility] on 06/29/2021 and 09/25/2022. There are scattered areas of fibroglandular density. There is no suspicious abnormality in either breast. Impression: There is no mammographic evidence of malignancy. Annual screening mammography is recommended. OVERALL FINAL ASSESSMENT: BI-RADS CATEGORY 1: Negative. us Self Screening Mammogram IMG MAMMO PROCEDURES Fi nal Result * POCT hemoglobin A1c (08/02/2023 1:51 PM DROP WIRE ALINER) Hemoglobin A1C, POC 6.5 % Blood 08/02/2023 1:51 PM DROP WIRE ALINER Adelso Padilla MD POINT OF CARE TEST ORDER BAO Final Result * Lipid panel (03/30/2023 10:53 AM CDT) Cholesterol 177 30 - 199 mg/dL [facility] Comment: Interpretive Data Ages < or = [...] revised on 2018. Triglycerides 48 <=149 mg/dL [facility] Comment: Interpretive Data Ages < or = [...] revised on 2018. HDL 57 >=40 mg/dL [facility] Comment: Interpretive Data Ages < or = [...] on 2018. LDL, calculated 110 <=129 mg/dL [facility] Comment: Interpretive Data Ages < or = [...] revised on 2018. Non-HDL Cholesterol 120 mg/dL [facility] Comment: Interpretive Data Ages < or [...] last revised on 2018. Chol/HDL ratio 3 [facility] Blood 03/30/2023 10:5 3 AM CDT 03/30/2023 2:30 PM CDT Adelso Padilla MD LAB BLOOD ORDERABLES Fin al Result [facility] Department [place] [address] * Albumin Creatinine Ratio, Urine (03/30/2023 10:49 AM CDT) Albumin Ur <12.0 mg/L [facility] Comment: Interpretive Data No reference range established. Current interpretive data was last revised 2018. Creatinine Ur 24.5 mg/dL [facility] Comment: Interpretive Data No reference range established. Current interpretive data was last revised 2018. Albumin Creatinine Ratio, Ur See Comment 1 - 29 mg/g [facility] Comment:Unable to calculate Urine 03/30/2023 10:4 9 AM CDT 03/30/2023 2:30 PM CDT Adelso Padilla MD LAB URINE ORDERABLES Fin al Result [facility] Department [place] [address] * Dexa Axial Skeleton Bone Density 1 [...] Electronically signed by: Floyd Vo MD, Ph.D Tray Acuna MD IMG DXA PROCEDURES Final Result * COLONOSCOPY (06/03/2019 1:42 PM DROP WIRE ALINER) Anatomical Region Laterality Modality Other Narrative Procedure Note Ross Sheppard MD - 06/03/2019 1:42 PM [facility] Patient Name: Asiya Singleton Procedure Date: 06/03/2019 1:42 PM Date of : 1955 Admit Type: Outpatient Age: 64 Gender: Female Attending MD: Ross Sheppard M.D. Room: [facility] ENDOSCOPY RO[facility] 5 Note Status: Finalized Procedure: Colonoscopy Indications: High risk colon cancer surveillance: Personalhistory of colonic polyps, Last colonoscopy: date unknown (unable to locate last colonoscopy report) Referring MD: Tray Acuna M.D. Providers: Ross C. Sheppard, M.D. Medicines: Monitored Anesthesia Care Complications: No [...] The scope was passed under direct vision.The [id number] endoscope was introduced throughthe anus and advanced to the terminal ileum. The colonoscopy was performed without difficulty. The patient tolerated the procedure well. The quality of the bowel preparation was evaluated using the BBPS ([place] Bowel Preparation Scale) with scores of:Right Colon [...] On: 06/03/2019 1:42 PM Recognized by the [employer] for promoting quality in endoscopy us Ross Sheppard MD ENDOSCOPY PROCEDURES Final Result * Hepatitis C antibody (04/08/2019 1:47 PM CDT) Hep C Ab <0.1 0.0 - 0.9 s/co ratio [facility] - 01 Comment: Negative: < 0.8 Indeterminate: 0.8 - 0.9 Positive: > 0.9 The CDC recommends that a positive HCV antibody result be followed up with a HCV Nucleic Acid Amplification test (457941). Blood specimen (specimen) 04/08/2019 1:47 PM CDT 04/08/2019 Narrative [facility] - 04/09/2019 1:08 PM CDT Performed at: [facility] [id number] Res Counselor: Kailash Price PhD, Phone: [phone] us Tray Acuna MD LAB MICROBIOLOGY - GENERAL ORDERABLES Final Result [facility] - 01 from Last 3 Months or Most Recently Relevant to Health Maintenance Insurance [employer] PPO [address] [address] [employer] Advance Directives For more information, please contact: [phone] * Full Code (Latest Code Status on File) Date Activated Date Inactivated Comments 07/08/2024 12:58 PM 07/09/2024 4:44 AM * Full Code Date Activated Date Inactivated Comments 05/09/2022 1:00 AM 05/12/2022 7:57 PM * Full Code Date Activated Date Inactivated Comments 06/03/2019 12:45 PM 06/03/2019 7:29 PM Care Teams Investigation Specialist Relationship Specialty Start Date End Date Ce Barnes DO [address] [place] [address] [address] PCP - General Family Medicine 04/02/24 Jenna Villatoro MD Referring Physician Obstetrics and Gynecology 03/31/19 Harjinder Holloway MD Referring Physician Orthopedic Surgery 04/04/21
--- OUTSIDE RECORDS SUMMARY | 2024-10-21 09:07 | XMS_ITS | Encounter Summary ---
Author Organization [facility] Address [address] [place] [address] Care Team Providers Care High Lift Driver Name Role Phone Adelso Padilla MD Primary Care Provider + Encounter Details Date Type Department Care Team (Late st Contact Info) Description 08/16/2023 Walk-In Visit [facility] - Orthopedic Surgery [address] [place] [address] Moises Olivarez, DO [address] [id number] Social History Tobacco Use Types Packs/Day Years Used Date Smoking Tobacco: Never Smokeless Tobacco: Never Alcohol Use Standard Drinks/Week Comments No 0 (1 standard drink = 0.6 oz pur e alcohol) PHQ-2 Answer Date Recorded Patient Health Questionnaire-2 Score 0 07/27/2023 Comments No Sex and Gender Information Value Date Recorded Sex Assigned at Not on file Legal Sex Female 1:03 PM CDT Gender Identity Not on file Sexual Orientation Not on file documented as of this encounter Functional Status * Is person deaf or have serious hearing difficulty? Answer Date of Assessment Author No 05/20/2015 1:26 PM Ce Zambrano RN * Is person blind or have serious difficulty seeing? Answer Date of Assessment Author No 05/20/2015 1:26 PM Ce Zambrano RN * Does person have serious difficulty walking/climbing stairs? Answer Date of Assessment Author No 05/20/2015 1:26 PM Ce Zambrano RN * Does person have difficulty dressing/bathing? Answer Date of Assessment Author No 05/20/2015 1:26 PM Ce Zambrano RN * Does person have difficulty doing errands alone? Answer Date of Assessment Author No 05/20/2015 1:26 PM Ce Zambrano RN documented as of this encounter Mental Status * Does person have difficulty concentrating/remembering/making decisions? Answer Entry Date Author No 05/20/2015 1:26 PM Ce Zambrano RN documented in this encounter Plan of Treatment Upcoming Encounters Date Type Department Care Team (Late st Contact Info) Description 06/12/2025 10:45 AM SUPERVISOR PREP Office Visit [facility] - [facility]opedic [facility] [address] [place] [id number] Moises Olivarez, DO [address] [id number] documented as of this encounter Visit Diagnoses Not on filedocumented in this encounter Care Teams High Lift Driver Relationship Specialty Start Date End Date Adelso Padilla MD [address] [place] [address] DR Garcia [address] [place] [address] PCP - General Internal Medicine 05/08/23 documented as of this encounter
--- OUTSIDE RECORDS SUMMARY | 2024-10-21 09:07 | XMS_ITS | Clinical Summary ---
Author Organization [facility] Address [address] [place] [address] Care Team Providers Care Script Supervisor Name Role Phone Adelso Padilla MD Primary Care Provider + Source Comments [facility],non-owned Affiliates and Associated Physician Practices is amultiple site organization consisting of ambulatory clinics and hospital sitesin [place], [place], [place] and [place]. This disclosure is being madepursuant to the Care Everywhere program and may not contain all information available regarding this patient. Last updated 18.[facility] Allergies No known active allergies Medications * Be aware that medications may not be up to date on this document. Alwaysverify current medications with the patient. rosuvastatin (CRESTOR) 10 MG tablet Take 1 (one) tablet by mouth once daily 0 Active Vitamin D, Ergocalciferol , 45279 units CAPS Active potassium chloride 20 MEQ/15ML (10%) solution Take 1 mL by mouth once daily 3 Active losartan (Cozaar) 25 MG tablet Take 1 (one) tablet by mouth once daily 3 Active furosemide (Lasix) 40 MG tablet Take 1 (one) tablet by mouth 2 times daily 3 Active spironolactone (Aldactone) 50 MG tablet Take 1 (one) tablet by mouth once daily 3 Active aspirin (Aspirin) 81 MG chew tabletIndicati ons:DVT ppx Take 1 (one) tablet by mouth 2 times daily Reasons: DVT ppx 70 tablet 3 Active acetaminophen (Tylenol) 500 MG tablet Take 2 (two) tablets by mouth every 6 hours as needed for Pain (mild pain) Maximum allowable Acetaminophen amount = 4 Grams (4000 mg) / 24 hours. 28 tablet 3 Active pregabalin (Lyrica) 50 MG capsule Take 1 (one) capsule by mouth 2 times daily for 30 days 60 capsule 3 Active Klor-Con M20 20 MEQ tablet Take 1 (one) tablet by mouth once daily 4 Active apixaban (Eliquis) 5 MG tablet Take 1 (one) tablet by mouth 2 times daily 4 Active fluticasone propionate (Flonase) 50 MCG/ACT nasal spray [place] 1 (one) spray into the nose once daily as needed Active vitamin D3 (Cholecalcifer ol) 125 MCG (5000 UT) capsule Take 1 (one) capsule by mouth once daily Active meloxicam (Mobic) 7.5 MG tablet Take 1 (one) tablet by mouth once daily as needed 4 Active metoprolol succinate XL 24hr (Toprol XL) 25 MG tablet Take 1 (one) tablet by mouth 2 times daily 4 Active FREESTYLE LITE STRIPS test strip USE TO TEST ONCE DAILY 4 Active Active Problems Problem Noted Date Diagnosed Date Primary osteoarthritis of left knee 08/23/2019 Acute low back pain with right-sided sciatica Trochanteric bursitis, left hip 08/05/2017 Status post total right knee replacement 016 Immunizations Immunization Administration Dates Next Due CareSimply primary monoval ent 12+ yr 0.3mL Purple [...] Recorded Patient Health Questionnaire-2 Score 0 06/13/2024 Comments No Sex and Gender Information Value Date Recorded Sex Assigned at Not on file Legal Sex Female 1:03 PM CDT Gender Identity Not on file Sexual Orientation Not on file Last Filed Vital Signs Vital Sign Reading Time Taken Comments Blood Pressure 141/75 05/31/2023 9:06 AM CHARTER BOAT OPERATOR Pulse 92 05/31/2023 9:06 AM CHARTER BOAT OPERATOR Temperature 37.1 C (98.8 F) 05/31/2023 9:06 AM CHARTER BOAT OPERATOR Respiratory Rate 18 05/31/2023 5:50 AM CHARTER BOAT OPERATOR Oxygen Saturation 93% 05/31/2023 9:06 AM CHARTER BOAT OPERATOR Inhaled Oxygen Concentration - - Weight 101.2 kg (223 lb) 05/29/2023 11:50 AM CHARTER BOAT OPERATOR Height 165.1 cm (5' 5 ) 05/29/2023 11:50 AM CHARTER BOAT OPERATOR Body Mass Index 37.11 05/29/2023 11:50 AM CHARTER BOAT OPERATOR Plan of Treatment Upcoming Encounters Date Type Department Care Team (Late st Contact Info) Description 06/12/2025 10:45 AM CHARTER BOAT OPERATOR Office Visit [facility] - [facility] [address] [place] [address] Moises Olivarez, DO [id number] [place] [address] Health Maintenance Due Date Last Done Comments [...] 2 - PCV) 03/31/2020 03/31/2019 COVID-19 VACCINE ( season) 2024 04/22/2021, 09/10/2020, 08/21/2020 DEPRESSION SCREENING 07/09/2024 07/27/2023 INFLUENZA VACCINE (Season Ended) 2025 04/08/2020, 07/29/2019, 05/21/2015 MAMMOGRAM 11/13/2025 11/14/2023, 05/0 02/2024, 09/25/2022, Additional [...] complete this topic MENINGOCOCCAL (Group B) VACCINE SHARED DECISION-MAKING Aged Out No longer eligible based on patient's age to complete this topic MENINGOCOCCAL GROUPS A/C/Y/W VACCINE Aged Out No longer eligible based on patient's age to complete this topic Medical Devices Implanted Type Area Gluing Pressman Device Identifier Shelf Expiration Date Model / Serial / Lot Reza Bone Palacos R Implanted:Qty : 2 on 05/20/2015 by Gentry Melendez MD at [facility] Right: [employer] 09/06/2019 [id number] / / [id number] Sz 3 Rt Tibial Baseplate Implanted:Qty : 1 on 05/20/2015 by Gentry Melendez MD at [facility] Right: [employer]nee [employer] 12/07/2024 [id number] / / [id number] 32mm Patellar Component Implanted:Qty : 1 on 05/20/2015 by Gentry Melendez MD at [facility] Right: [employer] 01/26/2025 [id number] / / [id number] Sz 5 Rt Femoral Component Implanted:Qty : 1 on 05/20/2015 by Gentry Melendez MD at [facility] Right: [employer] 03/02/2025 [id number] / / [id number] Rt Sz 3/4 9mm Articular Insert Implanted:Qty : 1 on 05/20/2015 by Gentry Melendez MD at [facility] Right: [employer] 02/22/2025 [id number] / / [id number] Spiked Keel Left Implanted:Qty : 1 on 05/29/2023 by Moises Olivarez DO at [facility] Left: [employer] [id number] 02/04/2033 [id number] / / [id number] Cruciate Retaining Left Implanted:Qty : 1 on 05/29/2023 by Moises Olivarez DO at [facility] Left: [employer] [id number] 02/19/2033 [id number] / / [id number] Medial Congruent Articular Surface Implanted:Qty : 1 on 05/29/2023 by Moises Olivarez DO at [facility] Left: [employer] [id number] 03/13/2028 [id number] / / [id number] Explanted Type Area Gluing Pressman Device Identifier Shelf Expiration Date Model / Serial / Lot Rt Sz F5/T4 Vis Cut Guide Explanted:Qty: 1 on 05/20/2015 at 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
[2024-11-17 09:14] VITALS: BMI 35.7
--- NOTE | 2024-11-17 09:14 | WPDSLEEPSTUD ---
Sleep Study Date of Study: 10/21/24 Ordering Provider: Ce Barnes DO Interpreting Physician: Ce Barnes DO Sleep Study Type: Split Polysomnogram Height: 1.65 m Weight: 97.522 kg Body Mass Index: 35.7 Neck Circumference (inches): 14.5 [place]: 4 Reason for Sleep Study Eval for STEPHANI. Sleep History The patient is a 69-year-old female who had a sleep study ordered by her primary care physician for evaluation of sleep apnea. The patient denies awakening from sleep short of breath. She occasionally awakens at night with heartburn, belching, or a cough. She rarely snores, and it is rarely loud enough that others complain. She constantly has trouble sleeping when she has a cold. She denies waking up gasping for air throughout the night. She rarely has breathing problems at night observed by herself or others. She occasionally sweats excessively at night. She occasionally has heart palpitations or irregular heartbeats during the night. She denies falling asleep during the day and while driving. She denies sleep paralysis, cataplexy, and hypnagogic/hypnopompic hallucinations. She denies having trouble at school or work due to sleepiness. She denies feeling afraid of going to sleep. She occasionally has nightmares. She denies remembering her dreams. She denies having thoughts racing through her mind. She denies feeling sad, depressed, or anxious. She denies having muscular tension. She denies noticing parts of her body jerk. She occasionally kicks during the night. She rarely has leg pain during the night. She denies grinding her teeth during sleep and denies awakening with morning jaw pain. She denies being bothered by pain during the day and denies being awakened by pain during the night. She occasionally wakes up feeling stiff in the morning. She denies waking up with sore or aching muscles. She denies waking up with pain in the neck, spine, and other joints. She goes to bed at 11 p.m. on weekdays and at midnight on the weekends. It takes her 1 hour to fall asleep. She wakes up once throughout the night to urinate and can fall back asleep within 10-15 minutes. The patient wakes up at 8 a.m. every morning. She typically gets 8 hours of sleep per night. She will stay in bed for 30 minutes after waking up in the morning. She currently lives with her and son. She denies consuming any caffeinated beverages within 2 hours of bedtime. She denies engaging in physical exercise before bedtime. She will watch television before falling asleep. She denies taking naps in the afternoon or the evening. She consumes a caffeinated beverage once a week at most. She denies tobacco, alcohol, and recreational drug use. [facility] Past Medical History Medical History Osteoporosis CHF (congestive heart failure) Arthritis Allergies High cholesterol Hypertension Family History Family History Mother Asthma Hypertension Grandparent Hypertension Social History Social History Smoking status: Never smoker Second hand tobacco smoke exposure: No Alcohol intake: never Substance use: never Substance use type: does not use Do You Feel Safe in your Home?: Yes Lack of Transportation: No Lack of Food: Never True Current Housing: I Have Housing Concerned About Future Housing: No Difficulty Paying Gas/Electric Bills: No Difficulty Paying for Meds: No Currently Unemployed: No Education: High School Diploma/GED Difficulty w/ Childcare or Family Care: No Medications Home Medications ?Medication ?Instructions ?Recorded ?Confirmed ?Type aspirin 81 mg chewable tablet PO 08/30/23 08/28/24 History furosemide 40 mg tablet mg PO 08/30/23 08/28/24 History potassium chloride 20 mEq meq PO 08/30/23 08/28/24 History tablet,extended release(part/cryst) (Klor-Con M) spironolactone 50 mg tablet mg PO 08/30/23 08/28/24 History cholecalciferol (vitamin D3) 125 125 mcg PO DAILY 02/21/24 08/28/24 History mcg (5,000 unit) capsule meloxicam 7.5 mg tablet 7.5 mg PO DAILY #30 tabs 03/11/24 08/28/24 Rx apixaban 5 mg tablet (Eliquis) mg PO BID 08/28/24 08/28/24 History eszopiclone 2 mg tablet (Lunesta) 2 mg PO QHS #1 tablet 08/28/24 08/28/24 Rx losartan 25 mg tablet 25 mg PO DAILY #90 tabs 08/28/24 08/28/24 Rx metoprolol succinate 25 mg mg PO BID 08/28/24 08/28/24 History tablet,extended release 24 hr rosuvastatin 10 mg tablet 10 mg PO DAILY #90 tabs 08/28/24 08/28/24 Rx empagliflozin 25 mg tablet 25 mg PO QAM #90 tabs 11/11/24 Rx (Jardiance) Sleep Procedure A full night split study using the Corsair multi-channel system recorded the standard physiologic parameters including EEG, EOG, submentalis EMG, anterior tibialis EMG, EKG, body position, nasal and oral airflow using nasal pressure sensor and thermistor.? Respiratory parameters of chest and abdominal movements were recorded with Respiratory Inductance Plethysmography belts. Oxygen saturation was recorded by pulse oximetry. Video monitoring was also performed. Sleep stages, periodic limb movements, and EEG arousals were scored in 30 second epochs according to the criteria of the AASM Scoring Manual. The Apnea-Hypopnea Index was calculated using CMS guidelines for definition of hypopnea with 4% O2 desaturations while scoring respiratory events. Sleep Architecture During the diagnostic portion of the study, the total recording time was 193.7 minutes. The total sleep time was 129.5 minutes. Sleep latency was 41.6 minutes.? REM latency was 55.5 minutes. Sleep Efficiency was 66.9%. The patient had 14 awakenings for an awakening index of 6.5. Wake after sleep onset time was 22.5 minutes. The patient spent 15.5 minutes, 12.0% of total sleep time in Stage N1. The patient spent 85.5 minutes, 66.0% in Stage N2. The patient spent 7.0 minutes, 5.4% in Stage N3. The patient spent 21.5 minutes, 16.6% in Stage REM sleep. At 01:50:00 AM the patient was placed on PAP treatment and was titrated at pressures ranging from 5 cm H20 up to 11 cm H20. During the treatment portion of the study, the total recording time was 251.0 minutes.? The total sleep time was 192.5 minutes. Sleep latency was 10.0 minutes. REM latency was 76.5 minutes. Sleep Efficiency was 76.7%. Wake after Sleep Onset time was 48.5 minutes. The patient spent 25.0 minutes, 13.0% of total sleep time in Stage N1. The patient spent 112.0 minutes, 58.2% in Stage N2. The patient spent 1.0 minutes, 0.5% in Stage N3. The patient spent 54.5 minutes, 28.3% in Stage REM. Respiratory Analysis During the diagnostic portion of the study, the patient had 27 hypopneas and 8 obstructive apneas for an overall Apnea Hypopnea Index of 15.8 events per hour. The REM Apnea Hypopnea Index was 64.2. The NREM Apnea Hypopnea Index was 8.9. The patient had a Central Apnea Hypopnea Index of 0. There was no evidence of Hammad-Roman Respirations. During the treatment portion of the study, the patient had 11 hypopneas and 8 obstructive apneas for an overall Apnea Hypopnea Index of 5.9 events per hour. The REM Apnea Hypopnea Index was 17.6. The NREM Apnea Hypopnea Index was 1.3. The patient had a Central Apnea Hypopnea Index of 0. There was no evidence of Hammad-Roman Respirations. The patient was started on CPAP 5 cm H2O and titrated to CPAP 11 cm H2O due to obstructive apneas and hypopneas. The patient was able to fall asleep starting on CPAP 5 cm H2O. The patient was able to achieve REM sleep starting on CPAP 7 cm H2O. The patient was able to achieve a residual AHI less than 5 with both NREM and REM sleep in the supine position. On CPAP 11 cm H2O, the patient spent 75.5 minutes in NREM and 18 minutes in REM with no respiratory events, resulting in an AHI of 0. The patient had a sleep efficiency of 77% on this pressure setting. Arousals During the diagnostic portion of the study, there were a total of 49 arousals for an arousal index of 22.7.? There were 14 respiratory arousals for an index of 6.5. There were 0 periodic limb movement arousals for an index of 0-.? There was 1 isolated limb movement arousal for an index of 0.5. There were 34 spontaneous arousals for an index of 15.8. During the treatment portion of the study, there were a total of 55 arousals for an index of 17.1.? There were 9 respiratory arousals for an index of 2.8. There were 0 periodic limb movement arousals for an index of 0.? There was 1 isolated limb movement arousal for an index of 0.3. There were 45 spontaneous arousals for an index of 14.0. Periodic Limb Movements During the diagnostic portion of the study, the patient had 2 isolated limb movements with an index of 0.9. The patient had 0 periodic limb movements with an index of 0. The patient had a total of 2 limb movements with a total limb movement index of 0.9. During the treatment portion of the study, the patient had 17 isolated limb movements with an index of 5.3. The patient had 0 periodic limb movements with an index of 0. The patient had a total of 17 limb movements with a total limb movement index of 5.3. Oximetry Data During the diagnostic portion of the study, the patient had an average oxygen saturation of 96.6% in wake with a minimum oxygen saturation of 75% and a maximum oxygen saturation of 99%. The patient had an average oxygen saturation of 93.9% in sleep with a minimum oxygen saturation of 75.0% and a maximum oxygen saturation of 98.0%. The patient had 65 oxygen desaturations resulting in an Oxygen Desaturation Index of 30.1. The patient spent 7.6 minutes, 3.9% of total sleep time with an oxygen saturation less than 88%. During the treatment portion of the study, the patient had an average oxygen saturation of 96.7% in wake with a minimum oxygen saturation of 75.0% and a maximum oxygen saturation of 99.0%. The patient had an average oxygen saturation of 96.0% in sleep with a minimum oxygen saturation of 76.0% and a maximum oxygen saturation of 98.0%. The patient had 50 oxygen desaturations resulting in an Oxygen Desaturation Index of 15.6. The patient spent 1.3 minutes, 0.5% of total sleep time with an oxygen saturation less than 88%. Snoring Profile Mild snoring was present intermittently during the baseline portion of the study. The snoring resolved once the patient was titrated to CPAP 9 cm H2O. Cardiac Profile The EKG lead showed normal sinus rhythm with frequent multifocal PVCs. During the diagnostic portion of the study, the average pulse rate was 70.1 bpm.? The minimum pulse rate was 51.0 bpm. The maximum pulse rate was 89.0 bpm. During the treatment portion of the study, the average pulse rate was 60.0 bpm.? The minimum pulse rate was 49.0 bpm. The maximum pulse rate was 83.0 bpm. EEG Profile No signs of seizure activity seen. Assessment and Plan Assessment and Plan (1) STEPHANI (obstructive sleep apnea): Code(s): G47.33 - Obstructive sleep apnea (adult) (pediatric) Status: Acute Assessment and Plan: In the baseline portion of the study, the patient had an overall AHI of 15.8 with desaturation down to 75%. This is consistent with moderate sleep apnea. The patient was started on CPAP 5 cm H2O and titrated to CPAP 11 cm H2O due to obstructive apneas and hypopneas. The patient's sleep apnea resolved on the final pressure setting. I recommend that the patient be prescribed CPAP 11 cm H2O, size SW Resmed N30 nasal mask, CPAP filters/tubing and heated humidity. A mandibular advancement device is also an acceptable treatment option. This should be used with all episodes of sleep.? Compliance should be reviewed within 31-90 days of starting therapy for usage greater than 4 hours per night greater than 70% of the nights. The patient should be asked about symptoms such as?excessive daytime sleepiness, quality of sleep, decreased nocturia, increased?mental functioning such as memory, mood, and concentration. Data The data obtained during this sleep study is adequate for interpretation. Certification This sleep study has been reviewed by a board certified sleep medicine physician.
== END 2024-10-22 07:18 | disposition home or self-care (01) ==
LOC: ANHCSM 08:47
PROVIDERS: PCP Family Medicine; Visit Provider Family Medicine
DX: G47.33 Obstructive sleep apnea (adult) (pediatric) (principal); I10 Essential (primary) hypertension
CPT/HCPCS: 95811

== ENCOUNTER 2024-11-27 12:29 | Outpatient (CLI) | payer OTHER, SELFPAY ==
--- OUTSIDE RECORDS SUMMARY | 2024-11-27 12:32 | XMS_ITS ---
Author Name Ana ORTIZ, MRS. Moore npal Address [address] [place] [address] Phone [phone] Organization [facility] Care Team Providers Care Commercial Litigation Associate Name Role Phone Lalito Perez Unavailable [phone] Unavailable Unavailable Unavailable ALAYNA MAX Unavailable [phone] Reason for Referral Not Available Allergies, adverse reactions, alerts No known allergies History of medication use Medication Class Instructions Start Date End Date Klor-Con M20 20 MEQ Tab ER 1 tablet oral ly daily with food 2024-11-19 No Data Available Aspirin EC 81 mg Tab delayed rel 1 tablet orally daily 2024-11-19 No Data Available Eliquis 5 mg Tab TAKE 1 TABLET BY JOSE TH TWICE A DAY 2024-06-11 No Data Available Losartan Potassium 25 mg Tab No Data Available 2024-03 No Data Available Rosuvastatin Calcium 10 mg Tab TAKE 1 TABLET BY MOUTH EVERY DAY 2024-01-28 No Data Available Furosemide 40 mg Tab TAKE 1 TABLET BY MO UTH TWICE A DAY 2024-04-24 No Data Available Metoprolol Succinate ER 25 m g Tab ER 24hr TAKE 1 TABLET BY MOUTH TWICE A DAY 2024-06-11 No Data Available Vitamin D3 125 MCG (5000 UT) Cap I tab daily 2024-11-19 No Data Available Jardiance 25 mg Tab TAKE 1 TABLET BY JOSE TH EVERY MORNING 2024-11-11 No Data Available Spironolactone 50 mg Tab 1 tablet orally daily 2024-11 No Data Available Problem List Problem Status Onset Date Resolved Date Synopsis Atrial fibrillation Active 2024-11-19 N/A N/A Congestive heart failure Active 2024-11-19 N/A N/A HLD (hyperlipidemia) Active 2024-11-19 N/A N/A HTN (hypertension) Active 2024-11-19 N/A N/A Type 2 diabetes mellitus Active 2024-11-19 N/A N/A Lymphedema Active 2024-11-19 N/A N/A Encounters Encounters Type Facility Date of Service Diagnosis/Co mplaint Home visit for evaluation and management of new patient requiring medically appropriate examination and moderate level of medical decision making. If using time, at least 60 minutes total time on en[facility] [place] 11/19/2024 Unspecified atrial fibrillationHeart failure, unspecifiedHyperlipidemia, unspecifiedEssential (primary) hypertensionType 2 diabetes mellitus without complicationsLymphedema, not elsewhere classifiedBody mass index (BMI) 35.0-35.9, adult Home visit for evaluation and management of new patient requiring medically appropriate examination and moderate level of medical decision making. If using time, at least 60 minutes total time on enco [facility] [place] 11/19/2024 Essential (primary) hypertensionType 2 diabetes mellitus without complications Home visit for evaluation and management of new patient requiring medically appropriate examination and moderate level of medical decision making. If using time, at least 60 minutes total time on enco [facility] [place] 11/19/2024 Essential (primary) hypertensionType 2 diabetes mellitus without complications Home visit for evaluation and management of new patient requiring medically appropriate examination and moderate level of medical decision making. If using time, at least 60 minutes total time on enco [facility] [place] 11/19/2024 Essential (primary) hypertension Vital Signs Date of Collection Vitals 2024-11-19 07:15:00 Height - 165.1 cmWei ght - 97.52 kgBody Mass Index (BMI) - 35.78 kg/m2BP Diastolic - 89.0 mm[Hg]BP Systolic - 101.0 mm[Hg]Heart Rate - 54.0 /minRespiratory Rate - 18.0 /minBody Temperature - 36.78 CelO2 % BldC Oximetry - 98.0 % Social History Sex Female History of Procedures Procedures Service Procedure code Service date Servicing provider Phone# Home visit for evaluation and management of new patient requiring medically appropriate examination and moderate level of medical decision making. If using time, at least 60 minutes [place] enco [address] 2024-11-19 No Data Available No Data Availa ble Most recent systolic blood pressure <130 mm Hg 3074F 2024-11-19 No Data Available No Data Availa ble Most recent dystolic blood pressure 80-89 mm Hg 3079F 2024-11-19 No Data Available No Data Availa ble Advance care planning discussion documented in medical record [id number] 2024-11-19 No Data Available No Data Ximena jernigan Functional Status Functional Category Effective Dates continues to drive 2024-11-19 Mental Status Status Date no cognitive 2024-11-19 Assessments Date of Service Assessments 2024-11-19 07:15:00 Atrial fibrillationC ongestive heart failureHLD (hyperlipidemia)HTN (hypertension)Type 2 diabetes mellitusLymphedema Plan of Care Date of Service Plans 2024-11-19 07:15:00 chronic; stableconti nue Eliquis 5mg BID and metoprolol ER 25 mg BIDmanaged by cardiologychroniccontinue Jardiance 25 mg once daily, furosemide 40 mg BID and Klor COn 20 meq once dailycontinue wearing compression stocking for lymphedemamanaged by cardiologychroniccontinue rosuvastatin 10 mg once dailyheart healthy dietBP stablecontinue losartan 25 mg once daily and metoprolol ER 25 mg BIDdiscussed sodium and caffeine intakecontinue drinking > 40 oz water dailychroniccontinue Jardiance 25 mg once dailymanaged by PCP with next appt next weekchronic; worse in left legcontinue wearing compression stockingscontinue elevating legs when sittingcontinue furosemide 40 mg BID Goals Date Goal 2024-11-19 Eliquis 5 mg BID - $ 150/ month and Jardiance 25 mg once daily - $150/monthly - telephonic referral placed. Health Concerns Date Concern 2024-11-19 [facility] is a service that involves a physician or advanced practice provider conducting comprehensive assessments in your patient s home or virtually to address crucial areas such as chronic conditions, quality gaps, social concerns, fall risk prevention, and various screenings. Please note that your patient will remain attributed to you even though they are participating in this service. If you have any questions, please reach out directly to our team at the phone number above.Your patient, Asiya Singleton, 1955, was seen today for a Healthy House Call visit. Patient read rights and responsibilities and consented to treatment. The purpose of this summary is to update you on the patient's current health status and share any relevant findings from the examination. 2024-11-19 A1C 7.2 03/2024; PCP appt next week. Does not check blood sugars regularly. Last checked BS a couple of weeks ago 2024-11-19 Had a sleep study do ne 10/21/2024 - results to be reviewed next week at PCP appt. 2024-11-19 Patient was getting lymphedema treatment for left LE at [facility] lymphedema clinic. Now manageable at home with compression stockings. Reports the stocking are also expensive. 2024-11-19 Ce Gomez at [facility] in [place], [place] (new PCP)
--- OUTSIDE RECORDS SUMMARY | 2024-11-27 12:32 | XMS_ITS | Clinical Summary ---
Author Organization [facility] Address [address] [place] [address] Care Team Providers Care Veterinarian Laboratory Animal Care Name Role Phone Adelso Padilla MD Primary Care Provider + Source Comments [facility],non-owned Affiliates and Associated Physician Practices is amultiple site organization consisting of ambulatory clinics and hospital sitesin [place], [place], [place] and [place]. This disclosure is being madepursuant to the Care Everywhere program and may not contain all information available regarding this patient. Last updated 18.[facility] Allergies No known active allergies Medications * Be aware that medications may not be up to date on this document. Alwaysverify current medications with the patient. rosuvastatin (CRESTOR) 10 MG tablet Take 1 (one) tablet by mouth once daily 0 Active Vitamin D, Ergocalciferol , 75890 units CAPS Active potassium chloride 20 MEQ/15ML [...] fluticasone propionate (Flonase) 50 MCG/ACT nasal spray [place] 1 (one) spray into the nose once [...] 016 Immunizations Immunization Administration Dates Next Due Red Condor primary monoval ent 12+ yr 0.3mL Purple [...] Comments Blood Pressure 141/75 05/31/2023 9:06 AM ACADEMIC AFFAIRS ASSISTANT Pulse 92 05/31/2023 9:06 AM ACADEMIC AFFAIRS ASSISTANT Temperature 37.1 C (98.8 F) 05/31/2023 9:06 AM ACADEMIC AFFAIRS ASSISTANT Respiratory Rate 18 05/31/2023 5:50 AM ACADEMIC AFFAIRS ASSISTANT Oxygen Saturation 93% 05/31/2023 9:06 AM ACADEMIC AFFAIRS ASSISTANT Inhaled Oxygen Concentration - - Weight 101.2 kg (223 lb) 05/29/2023 11:50 AM ACADEMIC AFFAIRS ASSISTANT Height 165.1 cm (5' 5 ) 05/29/2023 11:50 AM ACADEMIC AFFAIRS ASSISTANT Body Mass Index 37.11 05/29/2023 11:50 AM ACADEMIC AFFAIRS ASSISTANT Plan of Treatment Upcoming Encounters Date Type Department Care Team (Late st Contact Info) Description 06/12/2025 10:45 AM ACADEMIC AFFAIRS ASSISTANT Office Visit [facility] - [facility] [address] [place] [address] Moises Olivarez, DO [id number] [place] [address] Health Maintenance Due Date Last Done Comments [...] this topic Medical Devices Implanted Type Area Referral Specialist Device Identifier Shelf Expiration Date Model / Serial / Lot Reza Bone Palacos R Implanted:Qty : 2 on 05/20/2015 by Gentry Melendez MD at [facility] Right: Knee [employer] 09/06/2019 [id number] / / [id number] Sz 3 Rt Tibial Baseplate Implanted:Qty : 1 on 05/20/2015 by Gentry Melendez MD at [facility] Right: Knee [employer] 12/07/2024 [id number] / / [id number] 32mm Patellar Component Implanted:Qty : 1 on 05/20/2015 by Gentry Melendez MD at [facility] Right: Knee [employer] 01/26/2025 [id number] / / [id number] Sz 5 Rt Femoral Component Implanted:Qty : 1 on 05/20/2015 by Gentry Melendez MD at [facility] Right: Knee [employer] 03/02/2025 [id number] / / [id number] Rt Sz 3/4 9mm Articular Insert Implanted:Qty : 1 on 05/20/2015 by Gentry Melendez MD at [facility] Right: Knee [employer] 02/22/2025 [id number] / / [id number] Spiked Keel Left Implanted:Qty : 1 on 05/29/2023 by Moises Olivarez DO at [facility] Left: Knee [employer] [id number] 02/04/2033 [id number] / / [id number] Cruciate Retaining Left Implanted:Qty : 1 on 05/29/2023 by Moises Olivarez DO at [facility] Left: [employer]nee [employer] [id number] 02/19/2033 [id number] / / [id number] Medial Congruent Articular Surface Implanted:Qty : 1 on 05/29/2023 by Moises Olivarez DO at [facility] Left: Knee [employer] [id number] 03/13/2028 [id number] / / [id number] Explanted Type Area Referral Specialist Device Identifier Shelf Expiration Date Model / Serial / Lot Rt Sz F5/T4 Vis Cut Guide Explanted:Qty: 1 on 05/20/2015 at [facility] Right: Knee [employer] 08/04/2015 [id number] / / [id number] Insurance [employer] MED[employer] ADV PPO Advance Directives Documents on File Type Date Recorded Patient Coil Taper Expl anation Adv Directive/Living Will/POA 05/24/2015 10:36 PM * Full Code (Latest Code Status on File) Date Activated Date Inactivated Comments 05/29/2023 6:22 PM 05/31/2023 12:01 PM * Full Code Date Activated Date Inactivated Comments 05/20/2015 8:24 PM 05/23/2015 2:18 PM Care Teams Veterinarian Laboratory Animal Care Relationship Specialty Start Date End Date Adelso Padilla MD [address] [place] [address] DR Radha BAGLEY [address] [place] [id number] PCP - General Internal Medicine 05/08/23
--- OUTSIDE RECORDS SUMMARY | 2024-11-27 12:32 | XMS_ITS | Continuity of Care Document ---
Author Organization [facility] Address [address] [place] [address] Phone Care Team Providers Care Construction Materials Tester Name Role Phone Henry ABRAMS MD, Ross Unavailable Unavaila ble Procedures Procedure Date Work/medical disability examination ERIKA X-ray exam of shoulder, complete 2011 Prolonged serv, w/o contact, 1st hr Advance Directives Directive Yes / No Effective Date File Name No Information Encounters Encounter Description Practice Location Reason(s) For Visit Diagnoses Date Provider Providers Copied on Encounter Work/medical disability examination [facility], [address], [id number], [place] tel:[phone] [facility] Henry Hawkins. [address] [place] [address], [place], [place], [id number], . tel:[phone] Family History Family Member Type Diagnosis Age At Onset No Information Payers Payer name Insurance type Covered alliance party ID Authordorya miradeepak(s) Tal Nathan [id number] Social History Type Description Quantity Date Captured [...]
--- OUTSIDE RECORDS SUMMARY | 2024-11-27 12:32 | XMS_ITS | Clinical Summary ---
Author Organization [facility] Care Team Providers Care Supervisor Malt [employer] Name Role Phone Unavailable Primary Care Provider Unavailabl e Immunizations Immunization Administration Dates Next Due Covid-19, Mrna, Lnp-s, Pf, 30 Mcg/0.3 Ml Dose (P fizer) 04/22/2021 Social History Tobacco Use Types Packs/Day Years Used Date Smoking Tobacco: Never Assessed Comments Unknown Sex and Gender Information Value Date Recorded Sex Assigned at Not on file Legal Sex Female 6:18 PM SOCK LINER Gender Identity Not on file Sexual Orientation Not on file Plan of Treatment Health Maintenance Due Date Last Done Comments Hepatitis C Virus (HCV) Screening 1955 TdaP Immunization 1955 Colonoscopy 2000 Colorectal Cancer Screening 2000 Cologuard 2005 Immunochemical Fecal Occult Blood 2005 Pneumococcal Immunization (50+ years) (1 of 1 - PCV) 2005 Influenza Immunization (#1) 2024 04/07/2021, 1 SARS-COV-2 Immunization ( season) 2024 04/22/2021, 09/10/2020, 09/10/2020, Additional history [...]
--- OUTSIDE RECORDS SUMMARY | 2024-11-27 12:33 | XMS_ITS | Clinical Summary ---
Author Organization [facility] Address [address] [place] [address] Care Team Providers Care Mutton Puncher Name Role Phone Jenna Villatoro MD Unavailable [phone] Harjinder Holloway MD Unavailable Ce Barnes DO Primary Care Provider + Allergies No known active allergies Medications aspirin 81 mg chewable tablet Take 1 tablet (81 mg total) by mouth daily 30 tablet 2 Active cholecalciferol (VITAMIN D-3) 5,000 unit capsuleIndicatio ns:Vitamin D Deficiency Take 1 capsule (5,000 Units total) by mouth hi ranger operator before breakfast Active lancets 30 gauge miscIndications: Diabetes Mellitus Use to check BG once daily. 100 each 3 3 Active blood-glucose meter kitIndications:T ype 2 diabetes mellitus with stage 3 chronic kidney disease, with long-term current use of insulin, unspecified whether stage 3a or 3b CKD (HCC) 1 each hi ranger operator before breakfast Use to check blood sugar [...] 04/17/2024 Assessment & Plan (05/13/2024 11:12 AM INCIDENT ANALYST): POM #1 s/p CE/PCIOL - Doing well, [...] 04/02/2024 Assessment & Plan (05/13/2024 11:13 AM INCIDENT ANALYST): NVS, patient wishes to defer Assessment & Plan (04/02/2024 3:18 PM CDT): OD>OS Symptomatic over past few months Significant toric on IOLM and MRx, will obtain NOEMI Discussed toric vs conventional and residency education program. Patient elect to have resident participate in surgery. Type 2 diabetes mellitus with chronic kidney dis ease 12/21/2021 Assessment & Plan (08/02/2023 5:10 PM INCIDENT ANALYST): A1c 6.5% improved from 6.6%, with diet [...] medication. Assessment & Plan (06/15/2022 12:45 PM INCIDENT ANALYST): A1c 7.1% today. Prefers to stay off [...] statins Assessment & Plan (05/19/2022 10:52 AM INCIDENT ANALYST): Not on meds for this. 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 Assessment & Plan (07/30/2020 12:17 PM INCIDENT ANALYST): Following with ortho for this. Currently on meloxicam which has been very helpful. Discussed bleeding risk with concurrent NOAC. Will see if celebrex would be covered under her insurance. Started PPI in the meantime for gastric protection. Bilateral leg edema 12/16/2018 Assessment & Plan (03/30/2023 11:26 AM CDT): Stable on diuretic therapy as well as pumps. Assessment & Plan (07/21/2022 12:24 PM INCIDENT ANALYST): Notes some worsening recently - recommend start back furosemide 40mg BID, and continue to monitor. If continues to notice weight gain, should contact cardiology. Assessment & Plan (06/15/2022 12:48 PM INCIDENT ANALYST): Follows with cardiology continue lasix 40 mg BID as recommended by Dr Bucky Kinsey. Elevate foot, continue compression socks and watching diet Appropriate warnings reviewed Assessment & Plan (05/19/2022 11:24 AM INCIDENT ANALYST): Still has L>R. US in ER was [...] Kcl Assessment & Plan (07/29/2019 1:48 PM INCIDENT ANALYST): Improved with compression stockings She can try [...] re-eval Assessment & Plan (05/16/2018 5:01 PM INCIDENT ANALYST): Minimally symptomatic (mild DURHAM) but this could [...] well Assessment & Plan (08/15/2018 1:22 PM INCIDENT ANALYST): RLE DVT discovered 02/21/18- Now on Eliquis [...] anticoagulation Assessment & Plan (05/16/2018 5:06 PM INCIDENT ANALYST): RLE DVT discovered 02/21/18- Now on Eliquis and doing fine She does think that her symptoms started around the time of her right knee surgery but that was 2-3 years ago so unclear if this was provoked or unprovoked Will pursue 6 months AC but consider lifelong Essential hypertension 02/14/2018 Assessment & Plan (08/02/2023 5:10 PM INCIDENT ANALYST): Stable well controlled on current regimen, will send in refills as needed Assessment & Plan (03/30/2023 11:25 AM CDT): Stable well controlled on current regimen, will send in refills as needed Assessment & Plan (10/20/2022 11:22 AM CDT): Normotensive on diuretic therapy, will continue to monitor, if elevates, consider adding beta enma. Assessment & Plan (07/21/2022 12:25 PM INCIDENT ANALYST): Hypertension in office today, reports normal BPs at home. Will continue to monitor. Assessment & Plan (06/15/2022 12:46 PM INCIDENT ANALYST): Well controlled on current regimen Encouraged pt to monitor BP intermittently at home and report back with values.Advised lifestyle measures for improving BP inc regular exercise, healthy diet, salt restriction and weight loss Bring BP cuff at next visit Lytes normal recently Assessment & Plan (05/19/2022 10:31 AM INCIDENT ANALYST): Well controlled on current regimen Assessment & [...] measures Assessment & Plan (08/05/2021 1:40 PM INCIDENT ANALYST): bP has been above goal Will add [...] meds Assessment & Plan (07/30/2020 12:18 PM INCIDENT ANALYST): Very well-controlled on current regimen. CTM Assessment [...] now. Assessment & Plan (07/29/2019 4:36 PM INCIDENT ANALYST): Borderline in the office today. Encouraged her [...] control. Assessment & Plan (08/15/2018 1:36 PM INCIDENT ANALYST): Doing well on her home readings - continue quinapril/HTCZ 20/12.5mg 2 tabs daily Slightly high today but she attributes this to being somewhat late taking her BP meds Continue monitor intermittently at home and report back if consistently >130/80 Continue lifestyle measures for improving BP inc regular exercise, healthy diet, salt restriction and weight loss Assessment & Plan (05/16/2018 4:59 PM INCIDENT ANALYST): Above goal today- encouraged to monitor intermittently [...] measures Assessment & Plan (07/29/2019 4:38 PM INCIDENT ANALYST): Exam findings today most c/w right lumbar [...] helpful. Assessment & Plan (08/15/2018 1:37 PM INCIDENT ANALYST): Following with PMC and next step is facet injection Encouraged to continue working on weight loss and regular exercise Assessment & Plan (07/22/2018 5:38 PM INCIDENT ANALYST): Acute on chronic. Given that she has [...] 06/15/2022 Assessment & Plan (05/19/2022 10:27 AM INCIDENT ANALYST): Given the duration of sxs, will rx [...] 03/30/2023 Assessment & Plan (05/19/2022 10:26 AM INCIDENT ANALYST): S/p ER visit and negative for infarction. Med recs performed. Pt will be following with cards. Bilateral hearing loss due t o cerumen impaction 04/04/2021 03/30/2023 Sore throat 02/04/2021 04/04/2021 Assessment & Plan (02/04/2021 1:57 PM CDT): Pt is planning to go to or [facility] to get tested for strep/flu/covid Precautions [...] measures Assessment & Plan (08/05/2021 1:33 PM INCIDENT ANALYST): A1c looks good at 6.3%- controlled with [...] down. Assessment & Plan (07/30/2020 12:18 PM INCIDENT ANALYST): Controlled with diet- A1c 6.1% today. Congratulated [...] fungus -advised to follow up with her mixer and blender and maintain good hygiene. She does not want any meds today Assessment & Plan (01/29/2020 1:38 PM CDT): Fasting BGs in range, seems to be well-controlled with healthy diet. Continue working on healthy diet and regular exercise. She is now on rosuvastatin 10mg daily Assessment & Plan (07/29/2019 1:43 PM INCIDENT ANALYST): Continues to be diet-controlled based on A1c [...] tabs daily as tolerated. Referred to a head of drama and reviewed low GI diet and role [...] needed. Assessment & Plan (07/21/2022 12:25 PM INCIDENT ANALYST): Has had 10 pound weight gain over the past month - had not been taking furosemide as prescribed. Will start back on BID dosing, and continue to monitor weight. If increases, will contact cardiology. Assessment & Plan (06/15/2022 12:51 PM INCIDENT ANALYST): Per cardiology Assessment & Plan (05/19/2022 10:32 AM INCIDENT ANALYST): Reviewed ER notes and diagnostics Assessment & Plan (05/16/2018 2:04 PM INCIDENT ANALYST): Discussed importance of BP control, healthy diet, weight loss, and regular exercise Palpitations 02/14/2018 05/16/2018 Assessment & Plan (02/14/2018 1:27 PM CDT): EKG without rhythm disturbance Consider holter if progressive Leg swelling 02/14/2018 08/15/2018 Assessment & Plan (05/16/2018 2:02 PM INCIDENT ANALYST): Suspect this is a combination of DVT [...] my concerns and she will see her volunteer specialist and set up an appointment with Dr Neal SÁNCHEZ to have this evaluated. She likely needs diagnostic mammo + US for the right breast mass so we will order these if she cannot get into Dr Garcia quickly. 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 to r/o ischemia She does get some chest discomfort/SOB when she is yelling or emotionally distressed Encounters Date Type Department Care Team Description 09/18/2024 3:15 PM CDT Office Visit [facility] Cardiology [address] [place] [address] [place] [phone] Leon Chung MD Dyspnea, unspecified type (Primary Dx) 09/18/2024 Orders Only [facility] Cardiology [address] [place] [phone] Leon Chung MD Dyslipidemia (Primary Dx) from [...] TONSILLECTOMY as a child (13 yrs old) [place] ARTHROPLASTY KNEE TIBIAL PLATEAU 07/09/2014 - 07/08/2015 [...] on file Legal Sex Female 8:49 PM INCIDENT ANALYST Gender Identity Not on file Sexual Orientation [...] cm (5' 5 ) 07/08/2024 10:10 AM INCIDENT ANALYST Body Mass Index 37.11 07/08/2024 10:10 AM INCIDENT ANALYST Plan of Treatment Health Maintenance Due Date Last Done Comments Hepatitis B Screening 1973 Pneumococcal vaccine 65+ (2 of 2 - PCV) 03/31/2020 03/31/2019 Osteoporosis Screening-Bone Density Scan 04/04/2023 04/04/2021 Hemoglobin A1C 01/31/2024 08/02/2023, 04/10, 03/30/2023, Additional history exists Covid-19 Vaccine (4 - 2023-2 5 season) 2024 04/22/2021, 09/10/2020, 08/21/2020 Albumin Creatinine Ratio, Urine 03/30/2024 03/30/2023, 12/21/2021, 04/08/2019 Depression Screening 03/30/2024 03/30/2023, 03/27/2022, 04/04/2021, Additional history exists Foot Exam 03/30/2024 03/30/2023 Lipid Panel 03/30/2024 03/30/2023, 11/07, 03/28/2022, Additional history exists Well Visit 65+ 03/30/2024 03/30/2023, 03/09, 03/27/2022, Additional history exists Colon Cancer Screening-Colonoscopy 06/03/2024 06/03/2019 Breast Cancer Screening-Mammogram 11/13/2024 11/14/2023, 09/25/2022, 06/29/2021, Additional history exists Influenza Vaccine (Season Ended) 2025 04/08/2020, 07/29/2019, 05/21/2015 Dilated Eye Exam 05/13/2025 05/13/2024, , 07/11/2021 [...] Discontinued 06/03/2019 Medical Devices Implanted Type Area [employer] Dean Device Identifier Shelf Expiration Date Model / Serial / Lot Contentment Ltd Lens Iol Toric Ii Posterior Biconvex Optic Single Piece Tecnis Eyhance 6.0x13.0 3.75x+21.0d Hydrophobic Acrylic [id number] - [id number] - [id number] Implanted:Qty: 1 on 04/16/2024 by Brigette Mederos MD at [facility] Lens Right: Eye [employer] [id number] 09/01/2024 [id number] / [id number] / 0 Rt Total Knee Arthoplasty Knee Endoart [id number] Marker Breast Biopsy Magseed L12 Cm Od18 Ga - [id number] Implanted:Qty: 2 on 08/25/2020 at [facility] Endoart 01/05/2022 [id number] / / Procedures Procedure Name Priority Date/Time Associated Diagnosis Comments EGFR STAT 07/08/2024 9:47 AM INCIDENT ANALYST SCREENING MAMMOGRAM BILATERAL W NAMAN Schedule Routine, Read Routine (OP Routine) 11/14/2023 9:32 AM CDT Screening mammogram, encounter for POCT HEMOGLOBIN A1C Routine 08/02/2023 1:51 PM INCIDENT ANALYST Type 2 diabetes mellitus with stage 3 [...] exam Asymptomatic menopause COLONOSCOPY 06/03/2019 1:42 PM INCIDENT ANALYST HEPATITIS C ANTIBODY Routine 04/08/2019 1:47 PM CDT Encounter for preventative adult health care examination Encounter for hepatitis C screening test for low risk patient from Last 3 Months or Most Recently Relevant to Health Maintenance Results * (ABNORMAL) eGFR (07/08/2024 9:47 AM INCIDENT ANALYST) eGFR 49(L) >=60 mL/min/1. 73 m2 Comment: [...] last reviewed 2021. Blood 07/08/2024 9:47 AM INCIDENT ANALYST 07/08/2024 9:52 AM INCIDENT ANALYST us Leon Chung MD LAB BLOOD ORDERABLES Claudette esteban Result [facility] [address] [facility] [place] [address] [place] [address] * Screening Mammogram Bilateral W Naman (11/14/2023 9:32 AM CDT) Anatomical Region Laterality Modality Breast Bilateral Mammography Narrative 11/15/2023 11:02 AM CDT Mammogram Technique: Bilateral Digital Breast Tomosynthesis, Bilateral C-view 2D Screening mammogram. Views obtained: bilateral craniocaudal and bilateral mediolateral oblique. Computer Aided Detection was performed. Mammogram Findings: The present examination has been compared to prior imaging studies performed at [facility] on 04/29/2020, and at [facility] on 06/29/2021 and 09/25/2022. There are scattered [...] compared to prior imaging studies performed at [facility] on 04/29/2020, and at [facility] on 06/29/2021 and 09/25/2022. There are scattered areas of fibroglandular density. There is no suspicious abnormality in either breast. Impression: There is no mammographic evidence of malignancy. Annual screening mammography is recommended. OVERALL FINAL ASSESSMENT: BI-RADS CATEGORY 1: Negative. us Self Screening Mammogram IMG MAMMO PROCEDURES Fi nal Result * POCT hemoglobin A1c (08/02/2023 1:51 PM INCIDENT ANALYST) Hemoglobin A1C, POC 6.5 % Blood 08/02/2023 1:51 PM INCIDENT ANALYST Adelso Padilla MD POINT OF CARE TEST ORDER BAO Final Result * Lipid panel (03/30/2023 10:53 AM CDT) Cholesterol 177 30 - 199 mg/dL [facility] Comment: Interpretive Data Ages < or = [...] on 2018. HDL 57 >=40 mg/dL [facility] Comment: Interpretive Data Ages [...] 2018. LDL, calculated 110 <=129 mg/dL [facility] Comment: Interpretive Data Ages < or = [...] revised on 2018. Non-HDL Cholesterol 120 mg/dL [facility] Comment: Interpretive Data Ages < or = [...] last revised on 2018. Chol/HDL ratio 3 [facility] Blood 03/30/2023 10:5 3 AM CDT 03/30/2023 2:30 PM CDT Adelso Padilla MD LAB BLOOD ORDERABLES Fin al Result [facility] Department [place] [address] * Albumin Creatinine Ratio, Urine (03/30/2023 10:49 AM CDT) Albumin Ur <12.0 mg/L [facility] Comment: Interpretive Data No reference range established. Current interpretive data was last revised 2018. Creatinine Ur 24.5 mg/dL [facility] Comment: Interpretive Data No reference range established. Current interpretive data was last revised 2018. Albumin Creatinine Ratio, Ur See Comment 1 - 29 mg/g [facility] Comment:Unable to calculate Urine 03/30/2023 10:4 9 AM CDT 03/30/2023 2:30 PM CDT Heavenmelissa Brandi Padilla MD LAB URINE ORDERABLES Fin al Result [facility] Department [place] [address] * Dexa Axial Skeleton Bone Density 1 [...] Final Result * COLONOSCOPY (06/03/2019 1:42 PM INCIDENT ANALYST) Anatomical Region Laterality Modality Other Narrative Procedure Note Ross Sheppard MD - 06/03/2019 1:42 PM CST [facility] Patient Name: Asiya Singleton Procedure Date: 06/03/2019 1:42 PM Date of : 1955 Admit Type: Outpatient Age: 64 Gender: Female Attending MD: Ross Sheppard M.D. Room: [facility] ENDOSCOPY ROOM 5 Note Status: Finalized Procedure: [...] The scope was passed under direct vision.The [id number] endoscope was introduced throughthe anus and advanced to the terminal ileum. The colonoscopy was performed without difficulty. The patient tolerated the procedure well. The quality of the bowel preparation was evaluated using the BBPS ([place] Bowel Preparation Scale) with scores of:Right Colon [...] On: 06/03/2019 1:42 PM Recognized by the [employer] for promoting quality [...] with a HCV Nucleic Acid Amplification test (530038). Blood specimen (specimen) 04/08/2019 1:47 PM CDT 04/08/2019 Narrative [facility] - 04/09/2019 1:08 PM CDT Performed at: [facility] [id number] Plastic Dolls Mold Filler: Kailash Price PhD, Phone: [phone] us Tray Acuna MD LAB MICROBIOLOGY - GENERAL ORDERABLES Final Result [facility] - 01 from Last 3 Months or Most Recently Relevant to Health Maintenance Insurance [employer] PPO [employer] PPO [employer] PPO [employer] PPO Advance Directives For more information, please contact: [phone] * Full Code (Latest Code Status on File) Date Activated Date Inactivated Comments 07/08/2024 12:58 PM 07/09/2024 4:44 AM * Full Code Date Activated Date Inactivated Comments 05/09/2022 1:00 AM 05/12/2022 7:57 PM * Full Code Date Activated Date Inactivated Comments 06/03/2019 12:45 PM 06/03/2019 7:29 PM Care Teams Mutton Puncher Relationship Specialty Start Date End Date Ce Barnes DO [address] [place] [address] [address] PCP - General Family Medicine 04/02/24 Jenna Villatoro MD Referring Physician Obstetrics and Gynecology 03/31/19 Harjinder Holloway MD Referring Physician Orthopedic Surgery 04/04/21
--- OUTSIDE RECORDS SUMMARY | 2024-11-27 12:33 | XMS_ITS | Encounter Summary ---
Author Organization [facility] Health Address [address] [place] [address] Care Team Providers Care Vest Finisher Name Role Phone Adelso Padilla MD Primary Care Provider + Encounter Details Date Type Department Care Team (Late st Contact Info) Description 08/16/2023 Walk-In Visit [facility] - Orthopedic Surgery [address] [place] [address] Moises Olivarez, DO [address] [id number] Social History Tobacco Use Types Packs/Day Years [...] st Contact Info) Description 06/12/2025 10:45 AM CREATIVE STRATEGIST Office Visit [facility] - Orthopedic Surgery [address] [place] [address] Moises Olivarez, DO [address] [address] documented as of this encounter Visit Diagnoses Not on filedocumented in this encounter Care Teams Vest Finisher Relationship Specialty Start Date End Date Adelso Padilla MD [address] [place] [address] DR Garcia [address] [place] [address] PCP - General Internal Medicine 05/08/23 documented as of this encounter
--- OUTSIDE RECORDS SUMMARY | 2024-11-27 12:33 | XMS_ITS | Referral Summary ---
Author Organization [facility] Address [address] [place] [address] Care Team Providers Care Body Component Engineer Name Role Phone Jenna Villatoro MD Unavailable [phone] Harjinder Holloway MD Unavailable Ce Barnes DO Primary Care Provider + Encounters Date Type Department Care Team Description 09/18/2024 Orders Only [facility] Medical [facility] Cardiology [address] [place] [phone] Leon Chung MD Dyslipidemia (Primary Dx) 09/18/2024 3:15 PM CDT Office Visit [facility] Cardiology [address] [place] [phone] Leon Chung MD Dyspnea, unspecified type (Primary Dx) from Last 3 Months Allergies No known active allergies Medications aspirin 81 mg chewable tablet Take 1 tablet (81 mg total) by mouth daily 30 tablet 11 2 Active cholecalciferol (VITAMIN D-3) 5,000 unit capsuleIndicatio ns:Vitamin D Deficiency Take 1 capsule (5,000 Units total) by mouth orchid hand before breakfast Active lancets 30 gauge miscIndications: Diabetes Mellitus Use to check BG once daily. 100 each 3 3 Active blood-glucose meter kitIndications:T ype 2 diabetes mellitus with stage 3 chronic kidney disease, with long-term current use of insulin, unspecified whether stage 3a or 3b CKD (HCC) 1 each orchid hand before breakfast Use to check blood sugar [...] 04/17/2024 Assessment & Plan (05/13/2024 11:12 AM GAS TURBINE ASSEMBLER): POM #1 s/p CE/PCIOL - Doing well, [...] 04/02/2024 Assessment & Plan (05/13/2024 11:13 AM GAS TURBINE ASSEMBLER): NVS, patient wishes to defer Assessment & Plan (04/02/2024 3:18 PM CDT): OD>OS Symptomatic over past few months Significant toric on IOLM and MRx, will obtain NOEMI Discussed toric vs conventional and residency education program. Patient elect to have resident participate in surgery. Type 2 diabetes mellitus with chronic kidney dis ease 12/21/2021 Assessment & Plan (08/02/2023 5:10 PM GAS TURBINE ASSEMBLER): A1c 6.5% improved from 6.6%, with diet [...] medication. Assessment & Plan (06/15/2022 12:45 PM GAS TURBINE ASSEMBLER): A1c 7.1% today. Prefers to stay off [...] statins Assessment & Plan (05/19/2022 10:52 AM GAS TURBINE ASSEMBLER): Not on meds for this. 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 Assessment & Plan (07/30/2020 12:17 PM GAS TURBINE ASSEMBLER): Following with ortho for this. Currently on meloxicam which has been very helpful. Discussed bleeding risk with concurrent NOAC. Will see if celebrex would be covered under her insurance. Started PPI in the meantime for gastric protection. Bilateral leg edema 12/16/2018 Assessment & Plan (03/30/2023 11:26 AM CDT): Stable on diuretic therapy as well as pumps. Assessment & Plan (07/21/2022 12:24 PM GAS TURBINE ASSEMBLER): Notes some worsening recently - recommend start back furosemide 40mg BID, and continue to monitor. If continues to notice weight gain, should contact cardiology. Assessment & Plan (06/15/2022 12:48 PM GAS TURBINE ASSEMBLER): Follows with cardiology continue lasix 40 mg BID as recommended by Dr Bucky Kinsey. Elevate foot, continue compression socks and watching diet Appropriate warnings reviewed Assessment & Plan (05/19/2022 11:24 AM GAS TURBINE ASSEMBLER): Still has L>R. US in ER was [...] Kcl Assessment & Plan (07/29/2019 1:48 PM GAS TURBINE ASSEMBLER): Improved with compression stockings She can try [...] re-eval Assessment & Plan (05/16/2018 5:01 PM GAS TURBINE ASSEMBLER): Minimally symptomatic (mild DURHAM) but this could [...] well Assessment & Plan (08/15/2018 1:22 PM GAS TURBINE ASSEMBLER): RLE DVT discovered 02/21/18- Now on Eliquis [...] anticoagulation Assessment & Plan (05/16/2018 5:06 PM GAS TURBINE ASSEMBLER): RLE DVT discovered 02/21/18- Now on Eliquis and doing fine She does think that her symptoms started around the time of her right knee surgery but that was 2-3 years ago so unclear if this was provoked or unprovoked Will pursue 6 months AC but consider lifelong Essential hypertension 02/14/2018 Assessment & Plan (08/02/2023 5:10 PM GAS TURBINE ASSEMBLER): Stable well controlled on current regimen, will send in refills as needed Assessment & Plan (03/30/2023 11:25 AM CDT): Stable well controlled on current regimen, will send in refills as needed Assessment & Plan (10/20/2022 11:22 AM CDT): Normotensive on diuretic therapy, will continue to monitor, if elevates, consider adding beta enma. Assessment & Plan (07/21/2022 12:25 PM GAS TURBINE ASSEMBLER): Hypertension in office today, reports normal BPs at home. Will continue to monitor. Assessment & Plan (06/15/2022 12:46 PM GAS TURBINE ASSEMBLER): Well controlled on current regimen Encouraged pt to monitor BP intermittently at home and report back with values.Advised lifestyle measures for improving BP inc regular exercise, healthy diet, salt restriction and weight loss Bring BP cuff at next visit Lytes normal recently Assessment & Plan (05/19/2022 10:31 AM GAS TURBINE ASSEMBLER): Well controlled on current regimen Assessment & [...] measures Assessment & Plan (08/05/2021 1:40 PM GAS TURBINE ASSEMBLER): bP has been above goal Will add [...] meds Assessment & Plan (07/30/2020 12:18 PM GAS TURBINE ASSEMBLER): Very well-controlled on current regimen. CTM Assessment [...] now. Assessment & Plan (07/29/2019 4:36 PM GAS TURBINE ASSEMBLER): Borderline in the office today. Encouraged her [...] control. Assessment & Plan (08/15/2018 1:36 PM GAS TURBINE ASSEMBLER): Doing well on her home readings - continue quinapril/HTCZ 20/12.5mg 2 tabs daily Slightly high today but she attributes this to being somewhat late taking her BP meds Continue monitor intermittently at home and report back if consistently >130/80 Continue lifestyle measures for improving BP inc regular exercise, healthy diet, salt restriction and weight loss Assessment & Plan (05/16/2018 4:59 PM GAS TURBINE ASSEMBLER): Above goal today- encouraged to monitor intermittently [...] measures Assessment & Plan (07/29/2019 4:38 PM GAS TURBINE ASSEMBLER): Exam findings today most c/w right lumbar [...] helpful. Assessment & Plan (08/15/2018 1:37 PM GAS TURBINE ASSEMBLER): Following with PMC and next step is facet injection Encouraged to continue working on weight loss and regular exercise Assessment & Plan (07/22/2018 5:38 PM GAS TURBINE ASSEMBLER): Acute on chronic. Given that she has [...] 06/15/2022 Assessment & Plan (05/19/2022 10:27 AM GAS TURBINE ASSEMBLER): Given the duration of sxs, will rx [...] 03/30/2023 Assessment & Plan (05/19/2022 10:26 AM GAS TURBINE ASSEMBLER): S/p ER visit and negative for infarction. Med recs performed. Pt will be following with cards. Bilateral hearing loss due t o cerumen impaction 04/04/2021 03/30/2023 Sore throat 02/04/2021 04/04/2021 Assessment & Plan (02/04/2021 1:57 PM CDT): Pt is planning to go to or [facility] to get tested for strep/flu/covid Precautions reviewed [...] measures Assessment & Plan (08/05/2021 1:33 PM GAS TURBINE ASSEMBLER): A1c looks good at 6.3%- controlled with [...] down. Assessment & Plan (07/30/2020 12:18 PM GAS TURBINE ASSEMBLER): Controlled with diet- A1c 6.1% today. Congratulated [...] fungus -advised to follow up with her assistant grocery and maintain good hygiene. She does not want any meds today Assessment & Plan (01/29/2020 1:38 PM CDT): Fasting BGs in range, seems to be well-controlled with healthy diet. Continue working on healthy diet and regular exercise. She is now on rosuvastatin 10mg daily Assessment & Plan (07/29/2019 1:43 PM GAS TURBINE ASSEMBLER): Continues to be diet-controlled based on A1c [...] tabs daily as tolerated. Referred to a research manager and reviewed low GI diet and role [...] needed. Assessment & Plan (07/21/2022 12:25 PM GAS TURBINE ASSEMBLER): Has had 10 pound weight gain over the past month - had not been taking furosemide as prescribed. Will start back on BID dosing, and continue to monitor weight. If increases, will contact cardiology. Assessment & Plan (06/15/2022 12:51 PM GAS TURBINE ASSEMBLER): Per cardiology Assessment & Plan (05/19/2022 10:32 AM GAS TURBINE ASSEMBLER): Reviewed ER notes and diagnostics Assessment & Plan (05/16/2018 2:04 PM GAS TURBINE ASSEMBLER): Discussed importance of BP control, healthy diet, weight loss, and regular exercise Palpitations 02/14/2018 05/16/2018 Assessment & Plan (02/14/2018 1:27 PM CDT): EKG without rhythm disturbance Consider holter if progressive Leg swelling 02/14/2018 08/15/2018 Assessment & Plan (05/16/2018 2:02 PM GAS TURBINE ASSEMBLER): Suspect this is a combination of DVT [...] my concerns and she will see her trade union official and set up an appointment with Dr Neal SÁNCHEZ to have this evaluated. She likely needs diagnostic mammo + US for the right breast mass so we will order these if she cannot get into Dr Garcia quickly. Abnormal EKG 02/14/2018 05/16/2018 Assessment & Plan (02/14/2018 1:29 PM CDT): EKG with LAD and ST depression in inferior leads Referred for [facility] echo to r/o ischemia She does get [...] on file Legal Sex Female 8:49 PM GAS TURBINE ASSEMBLER Gender Identity Not on file Sexual Orientation [...] cm (5' 5 ) 07/08/2024 10:10 AM GAS TURBINE ASSEMBLER Body Mass Index 37.11 07/08/2024 10:10 AM GAS TURBINE ASSEMBLER Plan of Treatment Not on file Medical Devices Implanted Type Area City Recorder Device Identifier Shelf Expiration Date Model / Serial / Lot Hot Mix Mobile Lens Iol Toric Ii Posterior Biconvex Optic Single Piece Tecnis Eyhance 6.0x13.0 3.75x+21.0d Hydrophobic Acrylic [id number] - [id number] - [id number] Implanted:Qty: 1 on 04/16/2024 by Brigette Mederos MD at [facility] Lens Right: Eye Hot Mix Mobile [id number] 09/01/2024 [id number] / [id number] / 0 Rt Total Knee Arthoplasty Knee [employer] [id number] Marker Breast Biopsy Magseed L12 Cm Od18 Ga - [id number] Implanted:Qty: 2 on 08/25/2020 at [facility] [employer] 01/05/2022 [id number] / / Procedures Procedure Name Priority Date/Time Associated Diagnosis Comments EGFR STAT 07/08/2024 9:47 AM GAS TURBINE ASSEMBLER SCREENING MAMMOGRAM BILATERAL W NAMAN Schedule Routine, Read Routine (OP Routine) 11/14/2023 9:32 AM CDT Screening mammogram, encounter for POCT HEMOGLOBIN A1C Routine 08/02/2023 1:51 PM GAS TURBINE ASSEMBLER Type 2 diabetes mellitus with stage 3 [...] exam Asymptomatic menopause COLONOSCOPY 06/03/2019 1:42 PM GAS TURBINE ASSEMBLER HEPATITIS C ANTIBODY Routine 04/08/2019 1:47 PM CDT Encounter for preventative adult health care examination Encounter for hepatitis C screening test for low risk patient from Last 3 Months or Most Recently Relevant to Health Maintenance Results * (ABNORMAL) eGFR (07/08/2024 9:47 AM GAS TURBINE ASSEMBLER) eGFR 49(L) >=60 mL/min/1. 73 m2 Comment: [...] last reviewed 2021. Blood 07/08/2024 9:47 AM GAS TURBINE ASSEMBLER 07/08/2024 9:52 AM GAS TURBINE ASSEMBLER us Leon Chung MD LAB BLOOD ORDERABLES Claudette orellana Result [facility] [address] [facility] Department of Laboratories [place], [place] [id number] * Screening Mammogram Bilateral W Naman (11/14/2023 9:32 AM CDT) Anatomical Region Laterality Modality Breast Bilateral Mammography Narrative 11/15/2023 11:02 AM CDT Mammogram Technique: Bilateral Digital Breast Tomosynthesis, Bilateral C-view 2D Screening mammogram. Views obtained: bilateral craniocaudal and bilateral mediolateral oblique. Computer Aided Detection was performed. Mammogram Findings: The present examination has been compared to prior imaging studies performed at [facility] on 04/29/2020, and at [facility] on 06/29/2021 and 09/25/2022. There are [...] compared to prior imaging studies performed at [facility] on 04/29/2020, and at [facility] on 06/29/2021 and 09/25/2022. There are scattered areas of fibroglandular density. There is no suspicious abnormality in either breast. Impression: There is no mammographic evidence of malignancy. Annual screening mammography is recommended. OVERALL FINAL ASSESSMENT: BI-RADS CATEGORY 1: Negative. us Self Screening Mammogram IMG MAMMO PROCEDURES Fi nal Result * POCT hemoglobin A1c (08/02/2023 1:51 PM GAS TURBINE ASSEMBLER) Hemoglobin A1C, POC 6.5 % Blood 08/02/2023 1:51 PM GAS TURBINE ASSEMBLER Adelso Padilla MD POINT OF CARE TEST ORDER BAO Final Result * Lipid panel (03/30/2023 10:53 AM CDT) Cholesterol 177 30 - 199 mg/dL [facility] Comment: Interpretive Data Ages < [...] revised on 2018. Triglycerides 48 <=149 mg/dL [facility] Comment: Interpretive Data Ages < [...] revised on 2018. HDL 57 >=40 mg/dL [facility] Comment: Interpretive Data Ages < [...] on 2018. LDL, calculated 110 <=129 mg/dL [facility] Comment: Interpretive Data Ages < [...] revised on 2018. Non-HDL Cholesterol 120 mg/dL [facility] Comment: Interpretive Data Ages < or [...] last revised on 2018. Chol/HDL ratio [address] [facility] Blood 03/30/2023 10:5 3 AM CDT 03/30/2023 2:30 PM CDT Adelso Padilla MD LAB BLOOD ORDERABLES Fin al Result [facility] Department [place] [address] * Albumin Creatinine Ratio, Urine (03/30/2023 10:49 AM CDT) Albumin Ur <12.0 mg/L [facility] Comment: Interpretive Data No reference range established. Current interpretive data was last revised 2018. Creatinine Ur 24.5 mg/dL [facility] Comment: Interpretive Data No reference range established. Current interpretive data was last revised 2018. Albumin Creatinine Ratio, Ur See Comment 1 - 29 mg/g [facility] Comment:Unable to calculate Urine 03/30/2023 10:4 9 AM CDT 03/30/2023 2:30 PM CDT us Adelso Padilla MD LAB URINE ORDERABLES Fin al Result [facility] Department [place] [address] * Dexa Axial Skeleton Bone Density 1 [...] Final Result * COLONOSCOPY (06/03/2019 1:42 PM GAS TURBINE ASSEMBLER) Anatomical Region Laterality Modality Other Narrative Procedure Note Ross Sheppard MD - 06/03/2019 1:42 PM CST [facility] Patient Name: Asiya Singleton Procedure Date: 06/03/2019 1:42 PM Date of : 1955 Admit Type: Outpatient Age: 64 Gender: Female Attending MD: Ross Sheppard M.D. Room: [facility] ENDOSCOPY ROOM 5 Note Status: Finalized [...] The scope was passed under direct vision.The [id number] endoscope was introduced throughthe anus and advanced to the terminal ileum. The colonoscopy was performed without difficulty. The patient tolerated the procedure well. The quality of the bowel preparation was evaluated using the BBPS ([place] Bowel Preparation Scale) with scores of:Right Colon [...] On: 06/03/2019 1:42 PM Recognized by the [place] [employer] for promoting quality [...] with a HCV Nucleic Acid Amplification test (626234). Blood specimen (specimen) 04/08/2019 1:47 PM CDT 04/08/2019 Narrative [facility] - 04/09/2019 1:08 PM CDT Performed at: - [address] [id number] Pit Furnace Operator: Kailash Price PhD, Phone: [phone] Tray Acuna MD LAB MICROBIOLOGY - GENERAL ORDERABLES Final Result [facility] - 01 from Last 3 Months or Most Recently Relevant to Health Maintenance Insurance [employer] ADVANTAGE CHOICE PPO [employer] PPO [employer] PPO [employer] PPO Advance Directives For more information, please contact: [phone] * Full Code (Latest Code Status on File) Date Activated Date Inactivated Comments 07/08/2024 12:58 PM 07/09/2024 4:44 AM * Full Code Date Activated Date Inactivated Comments 05/09/2022 1:00 AM 05/12/2022 7:57 PM * Full Code Date Activated Date Inactivated Comments 06/03/2019 12:45 PM 06/03/2019 7:29 PM Care Teams Body Component Engineer Relationship Specialty Start Date End Date Ce Barnes DO [facility] [facility] [address] [address] PCP - General Family Medicine 04/02/24 Jenna Villatoro MD Referring Physician Obstetrics and Gynecology 03/31/19 Harjinder Holloway MD Referring Physician Orthopedic Surgery 04/04/21
[2024-11-27 18:44] LABS: Basophils Percent Auto 0.6 % (0.2-1.2); Eosinophils Absolute Auto 0.1 K/mm3 (0-0.3); Eosinophils Percent Auto 2.7 % (0-4.4); Hematocrit 44.9 % (37.0-47.0); Hemoglobin 13.8 g/dL (12.0-15.0); Immature Granulocyte Absolute 0.01 K/mm3 (0.00-0.031); Immature Granulocyte Percent A 0.2 % (0-0.5); Lymphocytes Absolute Auto 1.69 K/mm3 (0.9-3.2); Lymphocytes Percent Auto 34.8 % (18.3-44.2); Mean Corpuscular HGB Conc 30.7 g/dl (32-36); Mean Corpuscular Hemoglobin 29.7 pg (26-34); Mean Corpuscular Volume 96.6 fl (80-100); Mean Platelet Volume 11.5 fl (7.4-10.4); Monocytes Absolute Auto 0.6 K/mm3 (0.1-0.6); Monocytes Percent Auto 12.2 % (2.6-8.5); Neutrophils Absolute Auto 2.4 K/mm3 (1.3-6.7); Neutrophils Percent Auto 49.5 % (45.5-73.1); Platelet Count Result 229 k/mm3 (150-375); Red Blood Count 4.65 M/mm3 (4.2-5.4); Red Cell Distribution Width 14.1 % (11.5-14.5); White Blood Count 4.9 K/mm3 (4.5-10.0)
[2024-11-27 19:16] LABS: Alanine Aminotransferase 18 U/L (6-35); Albumin Level 4.3 g/dL (3.5-5.1); Alkaline Phosphatase 77 U/L (38-126); Anion Gap 9 mmol/L (4-12); Aspartate Amino Transferase 41 U/L (14-36); Bilirubin,Total 0.5 mg/dL (0.2-1.3); Blood Urea Nitrogen 19 mg/dL (7-17); Calcium 9.3 mg/dL (8.4-10.2); Carbon Dioxide 32 mmol/L (22-30); Chloride 102 mmol/L (98-107); Estimated Glomerular Filt Rate 42; Glucose 108 mg/dL (65-110); Potassium 4.4 mmol/L (3.4-5.0); Sodium 143 mmol/L (137-145)
[2024-11-27 19:47] LABS: Vitamin D 25 Hydroxy 71.1 ng/mL
[2024-11-27 20:08] LABS: Hemoglobin A1C 6.3 % (<5.7)
== END 2024-11-27 12:30 | disposition home or self-care (01) ==
LOC: ANHGOSHLAB 12:30
PROVIDERS: PCP Family Medicine; Visit Provider Family Medicine
DX: E11.22 Type 2 diabetes mellitus with diabetic chronic kidney disease (principal); I12.9 Hypertensive chronic kidney disease with stage 1 through stage 4 chronic kidney disease, or unspecified chronic kidney disease; N18.31 Chronic kidney disease, stage 3a; R74.8 Abnormal levels of other serum enzymes; E55.9 Vitamin D deficiency, unspecified; R53.83 Other fatigue
CPT/HCPCS: 36415; 80053; 82306; 83036; 84443; 85025

== ENCOUNTER 2025-03-25 10:07 | Outpatient (CLI) | payer OTHER, SELFPAY ==
--- OUTSIDE RECORDS SUMMARY | 2011-07-17 05:30 | XMS_ITS | Continuity of Care Document ---
Author Organization [facility] Address [address] [place] [address] Phone Care Team Providers Care Forestry Worker Name Role Phone Henry ABRAMS MD, Ross Unavailable Unavaila ble Procedures Procedure Date Work/medical disability examination ERIKA X-ray exam of shoulder, complete 2011 Prolonged serv, w/o contact, 1st hr Advance Directives Directive Yes / No Effective Date File Name No Information Encounters Encounter Description Practice Location Reason(s) For Visit Diagnoses Date Provider Providers Copied on Encounter Work/medical disability examination [facility], [address], [id number], [place] tel:[phone] [facility] Henry Hawkisn. [address] [facility], [place] [address], [place], [place], [id number], . tel:[phone] Family History Family Member Type Diagnosis Age At Onset No Information Payers Payer name Insurance type Covered democrat ID Authordorya miradeepak(s) Tal Nathan [id number] Social History Type Description Quantity Date Captured Comments Sex Female Smoking Status No Information Chief Complaint And Reason For Visit No Information Reason For Referral Reason For Referral No Information History Of Present Illness Encounter Date Complaint History Of Prese nt Illness No Information Functional Status Date Functional Assessmen t No Information Instructions Date Instruction Additional Infor mation No Information Assessments Type Assessment Date No Information Patient Care Teams Name Effective Dates (start - stop) Status Members No Information
--- OUTSIDE RECORDS SUMMARY | 2025-03-25 11:15 | XMS_ITS | Clinical Summary ---
Author Organization [facility] Address [address] [place] [address] Care Team Providers Care Boat Loader Name Role Phone Adelso Padilla MD Primary Care Provider + Source Comments [facility] [employer],non-owned Affiliates and Associated Physician Practices is amultiple site organization consisting of ambulatory clinics and hospital sitesin [place], [place] and [place]. This disclosure is being madepursuant to the Care Everywhere program and may not contain all information available regarding this patient. Last updated 18.[facility] [employer] Allergies No known active allergies Medications * Be aware that medications may not be up to date on this document. Alwaysverify current medications with the patient. rosuvastatin (CRESTOR) 10 MG tablet Take 1 (one) tablet by mouth once daily 0 Active Vitamin D, Ergocalciferol , 66529 units CAPS Active potassium chloride 20 MEQ/15ML [...] fluticasone propionate (Flonase) 50 MCG/ACT nasal spray [place] 1 (one) spray into the nose once [...] 016 Immunizations Immunization Administration Dates Next Due SpunLive primary monoval ent 12+ yr 0.3mL Purple [...] Comments Blood Pressure 141/75 05/31/2023 9:06 AM CLOTHES SEPARATOR Pulse 92 05/31/2023 9:06 AM CLOTHES SEPARATOR Temperature 37.1 C (98.8 F) 05/31/2023 9:06 AM CLOTHES SEPARATOR Respiratory Rate 18 05/31/2023 5:50 AM CLOTHES SEPARATOR Oxygen Saturation 93% 05/31/2023 9:06 AM CLOTHES SEPARATOR Inhaled Oxygen Concentration - - Weight 101.2 kg (223 lb) 05/29/2023 11:50 AM CLOTHES SEPARATOR Height 165.1 cm (5' 5) 05/29/2023 11:50 AM CLOTHES SEPARATOR Body Mass Index 37.11 05/29/2023 11:50 AM CLOTHES SEPARATOR Plan of Treatment Upcoming Encounters Date Type Department Care Team (Late st Contact Info) Description 06/12/2025 10:45 AM CLOTHES SEPARATOR Office Visit [facility] - Orthopedic Surgery [address] [place] [address] Moises Olivarez, DO [address] [place] [address] Health Maintenance Due Date Last Done Comments COLOGUARD (AGES 45-75) - COLON CA SCREENING 1955 [address] COLONOGRAPHY - COLON CA SCREENING 1955 FIT - COLON CA SCREENING 1955 FLEX SIG - COLON CA SCREENING 1955 MEDICARE AWV 12 MONTHS 1955 Opioid Medication Agreement - Annual 1955 HEPATITIS C SCREENING 04/10/1973 PNEUMOCOCCAL VACCINE 50+ (2 of 2 - PCV) 03/31/2020 03/31/2019 DEPRESSION SCREENING 07/09/2024 07/27/2023 COVID-19 VACCINE ( season) 2025 04/22/2021, 09/10/2020, 08/21/2020 INFLUENZA VACCINE (#1) 2025 , 07/29/2019, 05/21/2015 MAMMOGRAM 11/13/2025 11/14/2023, 05/02/2024, 09/25/2022, Additional history exists DTAP/TDAP/TD VACCINES (2 - Td or Tdap) 03/31/2029 03/31/2019 COLON MONITORING 06/03/2029 06/03/2019 COLONOSCOPY - COLON CA SCREENING 06/03/2029 06/03/2019 [...] this topic Medical Devices Implanted Type Area Field Checker Device Identifier Shelf Expiration Date Model / Serial / Lot Reza Bone Palacos R Implanted:Qty : 2 on 05/20/2015 by Gentry Melendez MD at [facility] Right: Knee [employer] 09/06/2019 [id number] / / [id number] Sz 3 Rt Tibial Baseplate Implanted:Qty : 1 on 05/20/2015 by Gentry Melendez MD at [facility] Right: Knee [employer] 12/07/2024 [id number] / / [id number] 32mm Patellar Component Implanted:Qty : 1 on 05/20/2015 by Gentry Melendez MD at [facility] Right: Knee [employer] 01/26/2025 [id number] / / [id number] Sz 5 Rt Femoral Component Implanted:Qty : 1 on 05/20/2015 by Gentry Melendez MD at [facility] Right: Knee [employer] 03/02/2025 [id number] / / [id number] Rt Sz 3/4 9mm Articular Insert Implanted:Qty : 1 on 05/20/2015 by Gentry Melendez MD at [facility] Right: Knee [employer] 02/22/2025 [id number] / / [id number] Spiked Keel Left Implanted:Qty : 1 on 05/29/2023 by Moises Olivarez DO at [facility] Left: Knee [employer] [id number] 02/04/2033 [id number] / / [id number] Cruciate Retaining Left Implanted:Qty : 1 on 05/29/2023 by Moises Olivarez DO at [facility] Left: Knee [employer] [id number] 02/19/2033 [id number] / / [id number] Medial Congruent Articular Surface Implanted:Qty : 1 on 05/29/2023 by Moises Olivarez DO at [facility] Left: Knee [employer] [id number] 03/13/2028 [id number] / / [id number] Explanted Type Area Field Checker Device Identifier Shelf Expiration Date Model / Serial / Lot Rt Sz F5/T4 Vis Cut Guide Explanted:Qty: 1 on 05/20/2015 at [facility] Right: Knee [employer] 08/04/2015 [id number] / / [id number] Insurance [facility] MEDICARE ADV PPO Advance Directives Documents on File Type Date Recorded Patient Bonderizer Expl anation Adv Directive/Living Will/POA 05/24/2015 10:36 PM * Full Code (Latest Code Status on File) Date Activated Date Inactivated Comments 05/29/2023 6:22 PM 05/31/2023 12:01 PM * Full Code Date Activated Date Inactivated Comments 05/20/2015 8:24 PM 05/23/2015 2:18 PM Care Teams Boat Loader Relationship Specialty Start Date End Date Adelso Padilla MD [address] [place] [address] DR Garcia [address] [address] PCP - General Internal Medicine 05/08/23
--- OUTSIDE RECORDS SUMMARY | 2025-03-25 11:15 | XMS_ITS | Encounter Summary ---
Author Organization [facility] Address [address] [place] [address] Care Team Providers Care Muck Boss Name Role Phone Adelso Padilla MD Primary Care Provider + Encounter Details Date Type Department Care Team (Late st Contact Info) Description 08/16/2023 Walk-In Visit [facility] - Orth[facility] Surgery [address] [place] [address] Moises Olivarez, DO [address] [id number] Social History Tobacco Use Types Packs/Day Years [...] st Contact Info) Description 06/12/2025 10:45 AM TRANSPORTATION DISPATCH MANAGER Office Visit [facility] - Orthopedic Surgery [address] [place] [address] Moises Olivarez, DO [address] [address] documented as of this encounter Visit Diagnoses Not on filedocumented in this encounter Care Teams Muck Boss Relationship Specialty Start Date End Date Adelso Padilla MD [address] [place] [address] DR Garcia [address] [place] [address] PCP - General Internal Medicine 05/08/23 documented as of this encounter
--- OUTSIDE RECORDS SUMMARY | 2025-03-25 11:15 | XMS_ITS ---
Author Name Ana ORTIZ, MRS. [place] Address [address] [place] [address] Phone [phone] Organization [facility] Care Team Providers Care [employer]p [employer] Name Role Phone Lalito Perez Unavailable [phone] Unavailable Unavailable Unavailable CE WARREN Unavailable [phone] ALAYNA MAX Unavailable [phone] Reason for Referral Not Available Allergies, adverse [...] at least 60 minutes total time on [facility] 11/19/2024 Unspecified atrial fibrillationHeart failure, unspecifiedHyperlipidemia, unspecifiedHypertensive heart disease with heart failureType 2 diabetes mellitus without complicationsLymphedema, not elsewhere classifiedBody mass index (BMI) 35.0-35.9, adult Home visit for evaluation and management of new patient requiring medically appropriate examination and moderate level of medical decision making. If using time, at least 60 minutes total time on [email or web address] [place] 11/19/2024 Hypertensive heart d isease with heart failureType 2 diabetes mellitus without complications Home visit for evaluation and management of new patient requiring medically appropriate examination and moderate level of medical decision making. If using time, at least 60 minutes total time on [facility] [place] 11/19/2024 Hypertensive heart d isease with heart failureType 2 diabetes mellitus without complications Home visit for evaluation and management of new patient requiring medically appropriate examination and moderate level of medical decision making. If using time, at least 60 minutes total time on [facility] 11/19/2024 Hypertensive heart d isease with heart failure Vital Signs Date of Collection Vitals 2024-11-19 [...] at least 60 minutes total time on [facility] [id number] 2024-11-19 No Data Available No Data Availa ble Most recent systolic blood pressure <130 mm Hg 3074F 2024-11-19 No Data Available No Data Availa ble Most recent dystolic blood pressure 80-89 mm Hg 3079F 2024-11-19 No Data Available No Data Availa ble Advance care planning discussion documented in medical record [id number] 2024-11-19 No Data Available No Data Avai lable Functional Status Functional Category Effective Dates continues [...] getting lymphedema treatment for left LE at [facility] lymphedema clinic. Now manageable at home with compression stockings. Reports the stocking are also expensive. 2024-11-19 Ce Gomez at [facility] in [place], [place] (new PCP)
--- OUTSIDE RECORDS SUMMARY | 2025-03-25 11:15 | XMS_ITS | Clinical Summary ---
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 Gender Identity Not on file Sexual Orientation Not on file Plan of Treatment Health Maintenance Due Date Last Done Comments Hepatitis C Virus (HCV) Screening 1955 TdaP Immunization 1955 Cologuard 2000 Colonoscopy 2000 Colorectal Cancer Screening 2000 Immunochemical Fecal Occult Blood 2000 Pneumococcal Immunization (50+ years) (1 of 1 - PCV) 2005 Influenza Immunization (#1) 2025 04/07/2021, 1 SARS-COV-2 Immunization ( season) 2025 04/22/2021, 09/10/2020, 09/10/2020, Additional history exists Respiratory Syncytial Virus (RSV) Immunization (Adult) (1 - 1-dose 75+ series) 2030 Zoster Immunization Completed 01/24/2018, 8 Hepatitis B Immunization Aged Out No longer eligible based on patient's age to complete this topic Human Papillomavirus (HPV) Immunization Aged Out No longer eligible based on patient's age to complete this topic Meningococcal Immunization (ACWY) Aged Out No longer eligible based on patient's age to complete this topic Rotavirus Immunization Aged Out No lo nger eligible based on patient's age to complete this topic
--- OUTSIDE RECORDS SUMMARY | 2025-03-25 11:15 | XMS_ITS | Clinical Summary ---
Author Organization [facility] Address [address] [place] [address] Care Team Providers Care Newspaper Or Periodical Editor Name Role Phone Jenna Villatoro MD Unavailable [phone] Harjinder Holloway MD Unavailable Ce Barnes DO Primary Care Provider + Leon Chung MD Unavailable Allergies No known active allergies Medications cholecalciferol (VITAMIN D-3) 5,000 unit capsuleIndicati ons:Vitamin D Deficiency Take 1 capsule (5,000 Units total) by mouth galvanizer before breakfast Active lancets 30 gauge miscIndications :Diabetes Mellitus Use to check BG once daily. 100 each 3 3 Active blood-glucose meter kitIndications: Type 2 diabetes mellitus with stage 3 chronic kidney disease, with long-term current use of insulin, unspecified whether stage 3a or 3b CKD (HCC) 1 each galvanizer before breakfast Use to check blood sugar daily 1 kit 3 Active blood glucose diagnostic (glucose blood) stripIndication s:Type 2 diabetes mellitus with stage 3 chronic kidney disease, with long-term current use of insulin, unspecified whether stage 3a or 3b CKD (HCC) Use to check blood sugar daily 100 each 11 3 Active rosuvastatin (CRESTOR) 10 mg tablet TAKE 1 TABLET BY MOUTH EVERY MORNING 90 tablet 3 4 Active losartan (COZAAR) 25 mg tabletIndicatio ns:Essential hypertension,Pa lpitations,Dysl ipidemia TAKE 1 TABLET BY MOUTH EVERY DAY 90 tablet 1 4 Active meloxicam (MOBIC) 7.5 mg tabletIndicatio ns:pain Take 1 tablet (7.5 mg total) by mouth daily as needed for pain 4 Active acetaminophen (TYLENOL) 500 mg tabletIndicatio ns:Pain Take 2 tablets (1,000 mg total) by mouth every 6 (six) hours as needed for pain 3 Active fluticasone propionate (FLONASE) 50 mcg/actuation nasal sprayIndication s:Allergic Conjunctivitis, Allergic Rhinitis Administer 1 spray into each nostril daily as needed for rhinitis or allergies Active furosemide (LASIX) 40 mg tabletIndicatio ns:Edema Take 1 tablet (40 mg total) by mouth 2 (two) times a day 60 tablet 11 4 Active spironolactone (ALDACTONE) 50 mg tablet TAKE 1 TABLET BY MOUTH EVERY DAY 90 tablet 1 4 Active potassium chloride ER 20 mEq CR tablet Take 1 tablet (20 mEq total) by mouth 2 (two) times a day Active apixaban (ELIQUIS) 5 mg tablet 2 (two) times a day 5 Active aspirin 81 mg chewable tablet Take by mouth 4 Active metoprolol XL (TOPROL-XL) 25 mg extended release tablet 2 (two) times a day 5 Active empagliflozin (JARDIANCE) 25 mg tablet Take 1 tablet (25 mg total) by mouth 5 Active aspirin 81 mg chewable tablet Take 1 tablet (81 mg total) by mouth daily 30 tablet 11 2 03/11/20 25 Discontin ued(Dupli jose guadalupe order) OMEPRAZOLE-SODI UM BICARBONATE ORALIndications :Treatment of Non-Bleeding Gastric Disorder Take 1 capsule by mouth daily as needed (acid reflux) Zegerid 03/11/20 25 Discontin ued(Thera py completed ) apixaban (ELIQUIS) 5 mg tablet Take 1 tablet (5 mg total) by mouth 2 (two) times a day 180 tablet 1 4 03/11/20 25 Discontin ued(Dupli jose guadalupe order) metoprolol XL (TOPROL-XL) 25 mg extended release tablet TAKE 1 TABLET BY MOUTH TWICE A DAY 180 tablet 1 5 03/11/20 25 Discontin ued(Dupli jose guadalupe order) empagliflozin (JARDIANCE ORAL) 5 03/11/20 25 Discontin ued(Dupli jose guadalupe order) Active Problems Problem Noted Date Diagnosed Date Screening for colorectal cancer 01/28/2025 Valvular heart disease 07/08/2024 S/P cataract extraction, right 04/17/2024 Assessment & Plan (05/13/2024 11:12 AM AIR BRAKE MECHANIC): POM #1 s/p CE/PCIOL - Doing well, [...] 04/02/2024 Assessment & Plan (05/13/2024 11:13 AM AIR BRAKE MECHANIC): NVS, patient wishes to defer Assessment & Plan (04/02/2024 3:18 PM CDT): OD>OS Symptomatic over past few months Significant toric on IOLM and MRx, will obtain NOEMI Discussed toric vs conventional and residency education program. Patient elect to have resident participate in surgery. Type 2 diabetes mellitus with chronic kidney dis ease 12/21/2021 Assessment & Plan (08/02/2023 5:10 PM AIR BRAKE MECHANIC): A1c 6.5% improved from 6.6%, with diet [...] medication. Assessment & Plan (06/15/2022 12:45 PM AIR BRAKE MECHANIC): A1c 7.1% today. Prefers to stay off [...] statins Assessment & Plan (05/19/2022 10:52 AM AIR BRAKE MECHANIC): Not on meds for this. States A1c has been fine and she does not want to start anything. 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 Assessment & Plan (07/30/2020 12:17 PM AIR BRAKE MECHANIC): Following with ortho for this. Currently on meloxicam which has been very helpful. Discussed bleeding risk with concurrent NOAC. Will see if celebrex would be covered under her insurance. Started PPI in the meantime for gastric protection. Bilateral leg edema 12/16/2018 Assessment & Plan (03/30/2023 11:26 AM CDT): Stable on diuretic therapy as well as pumps. Assessment & Plan (07/21/2022 12:24 PM AIR BRAKE MECHANIC): Notes some worsening recently - recommend start back furosemide 40mg BID, and continue to monitor. If continues to notice weight gain, should contact cardiology. Assessment & Plan (06/15/2022 12:48 PM AIR BRAKE MECHANIC): Follows with cardiology continue lasix 40 mg BID as recommended by Dr Bucky Kinsey. Elevate foot, continue compression socks and watching diet Appropriate warnings reviewed Assessment & Plan (05/19/2022 11:24 AM AIR BRAKE MECHANIC): Still has L>R. US in ER was [...] Kcl Assessment & Plan (07/29/2019 1:48 PM AIR BRAKE MECHANIC): Improved with compression stockings She can try [...] re-eval Assessment & Plan (05/16/2018 5:01 PM AIR BRAKE MECHANIC): Minimally symptomatic (mild DURHAM) but this could [...] well Assessment & Plan (08/15/2018 1:22 PM AIR BRAKE MECHANIC): RLE DVT discovered 02/21/18- Now on Eliquis [...] anticoagulation Assessment & Plan (05/16/2018 5:06 PM AIR BRAKE MECHANIC): RLE DVT discovered 02/21/18- Now on Eliquis and doing fine She does think that her symptoms started around the time of her right knee surgery but that was 2-3 years ago so unclear if this was provoked or unprovoked Will pursue 6 months AC but consider lifelong Essential hypertension 02/14/2018 Assessment & Plan (08/02/2023 5:10 PM AIR BRAKE MECHANIC): Stable well controlled on current regimen, will send in refills as needed Assessment & Plan (03/30/2023 11:25 AM CDT): Stable well controlled on current regimen, will send in refills as needed Assessment & Plan (10/20/2022 11:22 AM CDT): Normotensive on diuretic therapy, will continue to monitor, if elevates, consider adding beta enma. Assessment & Plan (07/21/2022 12:25 PM AIR BRAKE MECHANIC): Hypertension in office today, reports normal BPs at home. Will continue to monitor. Assessment & Plan (06/15/2022 12:46 PM AIR BRAKE MECHANIC): Well controlled on current regimen Encouraged pt to monitor BP intermittently at home and report back with values.Advised lifestyle measures for improving BP inc regular exercise, healthy diet, salt restriction and weight loss Bring BP cuff at next visit Lytes normal recently Assessment & Plan (05/19/2022 10:31 AM AIR BRAKE MECHANIC): Well controlled on current regimen Assessment & [...] measures Assessment & Plan (08/05/2021 1:40 PM AIR BRAKE MECHANIC): bP has been above goal Will add [...] meds Assessment & Plan (07/30/2020 12:18 PM AIR BRAKE MECHANIC): Very well-controlled on current regimen. CTM Assessment [...] now. Assessment & Plan (07/29/2019 4:36 PM AIR BRAKE MECHANIC): Borderline in the office today. Encouraged her [...] control. Assessment & Plan (08/15/2018 1:36 PM AIR BRAKE MECHANIC): Doing well on her home readings - continue quinapril/HTCZ 20/12.5mg 2 tabs daily Slightly high today but she attributes this to being somewhat late taking her BP meds Continue monitor intermittently at home and report back if consistently >130/80 Continue lifestyle measures for improving BP inc regular exercise, healthy diet, salt restriction and weight loss Assessment & Plan (05/16/2018 4:59 PM AIR BRAKE MECHANIC): Above goal today- encouraged to monitor intermittently [...] measures Assessment & Plan (07/29/2019 4:38 PM AIR BRAKE MECHANIC): Exam findings today most c/w right lumbar [...] helpful. Assessment & Plan (08/15/2018 1:37 PM AIR BRAKE MECHANIC): Following with PMC and next step is facet injection Encouraged to continue working on weight loss and regular exercise Assessment & Plan (07/22/2018 5:38 PM AIR BRAKE MECHANIC): Acute on chronic. Given that she has [...] 06/15/2022 Assessment & Plan (05/19/2022 10:27 AM AIR BRAKE MECHANIC): Given the duration of sxs, will rx [...] 03/30/2023 Assessment & Plan (05/19/2022 10:26 AM AIR BRAKE MECHANIC): S/p ER visit and negative for infarction. Med recs performed. Pt will be following with cards. Bilateral hearing loss due t o cerumen impaction 04/04/2021 03/30/2023 Sore throat 02/04/2021 04/04/2021 Assessment & Plan (02/04/2021 1:57 PM CDT): Pt is planning to go to or [facility] to get tested for strep/flu/covid Precautions [...] measures Assessment & Plan (08/05/2021 1:33 PM AIR BRAKE MECHANIC): A1c looks good at 6.3%- controlled with [...] down. Assessment & Plan (07/30/2020 12:18 PM AIR BRAKE MECHANIC): Controlled with diet- A1c 6.1% today. Congratulated on healthy diet efforts and she will continue. Encouraged exercise. Assessment & Plan (04/01/2020 1:37 PM CDT): Fasting BGs in range, seems to be well-controlled with healthy diet. She was offered Metformin but does not want to start medication. She does not want to be a diabetic.Continue working on healthy diet and regular exercise. She is now on rosuvastatin 10mg daily Pt has toe nail fungus -advised to follow up with her case management coordinator and maintain good hygiene. She does not want any meds today Assessment & Plan (01/29/2020 1:38 PM CDT): Fasting BGs in range, seems to be well-controlled with healthy diet. Continue working on healthy diet and regular exercise. She is now on rosuvastatin 10mg daily Assessment & Plan (07/29/2019 1:43 PM AIR BRAKE MECHANIC): Continues to be diet-controlled based on A1c [...] tabs daily as tolerated. Referred to a tobacco sweeper and reviewed low GI diet and role [...] needed. Assessment & Plan (07/21/2022 12:25 PM AIR BRAKE MECHANIC): Has had 10 pound weight gain over the past month - had not been taking furosemide as prescribed. Will start back on BID dosing, and continue to monitor weight. If increases, will contact cardiology. Assessment & Plan (06/15/2022 12:51 PM AIR BRAKE MECHANIC): Per cardiology Assessment & Plan (05/19/2022 10:32 AM AIR BRAKE MECHANIC): Reviewed ER notes and diagnostics Assessment & Plan (05/16/2018 2:04 PM AIR BRAKE MECHANIC): Discussed importance of BP control, healthy diet, weight loss, and regular exercise Palpitations 02/14/2018 05/16/2018 Assessment & Plan (02/14/2018 1:27 PM CDT): EKG without rhythm disturbance Consider holter if progressive Leg swelling 02/14/2018 08/15/2018 Assessment & Plan (05/16/2018 2:02 PM AIR BRAKE MECHANIC): Suspect this is a combination of DVT [...] my concerns and she will see her installation drafter and set up an appointment with Dr Neal SÁNCHEZ to have this evaluated. She likely needs diagnostic mammo + US for the right breast mass so we will order these if she cannot get into Dr Garcia quickly. Abnormal EKG 02/14/2018 05/16/2018 Assessment & Plan (02/14/2018 1:29 PM CDT): EKG with LAD and ST depression in inferior leads Referred for COLLECT ON DELIVERY CLERK echo to r/o ischemia She does get some chest discomfort/SOB when she is yelling or emotionally distressed Encounters Date Type Department Care Team Description 03/13/2025 Results Follow-Up [facility] Medicine Gastroenterology [address] [place] [address] [address] [place] [address] [place] [address] Shoaib Cosme MD Surgical pathology 03/11/2025 11:39 AM CDT Anesthesia Event [facility] [address] [address] Fara Romeo MD 03/11/2025 11:15 AM CDT - 03/11/2025 12:00 PM CDT Surgery [facility] [address] [place] [id number] Shoaib Cosme MD COLON BIOPSY 03/11/2025 9:46 AM CDT - 03/11/2025 1:16 PM CDT Hospital Encounter [facility] [address] [address] Shoaib Cosme MD Screening for colorectal cancer Discharge Disposition: Discharge to home or self care 03/04/2025 Telephone [facility] Special[facility] [address] [place] [phone] Tomasa Best, KRISSY GI Preprocedure 01/28/2025 Telephone [facility] Medicine Gastroenterology [address] [place] [address] [place] [address] Annie Mac GI Pre-Procedure Assessment 12/29/2024 2:25 PM CDT - 12/29/2024 11:59 PM CDT Hospital Encounter [facility] [address] [facility] [address] [place] [id number] Screening mammogram, encounter for Discharge Disposition: Discharge to home or self care from Last 3 Months Immunizations Immunization Administration [...] - 06/07/2023 Left Total knee replacement BREAST EXCISIONAL BIOPSY Left papilloma BREAST BIOPSY 06/25/2020 Right papilloma x 2 BREAST BIOPSY 07/16/2020 Left papilloma TONSILLECTOMY as a child (13 yrs old) UT ARTHROPLASTY KNEE TIBIAL PLATEAU 07/09/2014 - 07/08/2015 [...] s/p knee replacement Type 2 diabetes mellitus pt repo rts diet controlled Motion sickness CHF (congestive heart [...] 50's (Added by TW Conv) Hypertension Son Colon cancer Neg Hx Ovarian cancer Neg Hx Relation Name Status Comments Daughter Alive Mother Alive Mother's Sister Son Alive Social History Tobacco Use Types Packs/Day Years Used Date Smoking Tobacco: Never Smokeless Tobacco: Never Tobacco Cessation:Counseling Given: Not Answered Alcohol Use Standard Drinks/Week Comments Never 0 (1 standard drink = 0.6 oz pur e alcohol) PHQ-2 Answer Date Recorded PHQ-2 Total Score (If total score is 3 or more points, staff should administer the PHQ-9) 0 03/30/2023 AUDIT-C Answer Date Recorded Q1: How often do you have a drink containing alcohol? Never 03/11/2025 Q2: How many drinks containi ng alcohol do you have on a typical day when you are drinking? Patient does not drink Q3: How often do you have si x or more drinks on one occasion? Never 03/11/2025 Personal Safety Answer Date Recorded Have you ever been in or are you currently in a harmful physical or emotional relationship or is someone making you feel afraid or unsafe? Denies 03/11/2025 Comments No Sex and Gender Information Value Date Recorded Sex Assigned at Not on file Legal Sex Female 8:49 PM AIR BRAKE MECHANIC Gender Identity Not on file Sexual Orientation Not on file Obstetrics History Para Term AB IAB SAB Ectopic Multiple Livin g Live Births 3 3 3 3 Date Outcome GA Total Labor Labor/2nd/3rd Weight Sex Type Anes PTL Iiss A1 A5 Name Clin Term Term Term Last Filed Vital Signs Vital Sign Reading Time Taken Comments Blood Pressure 134/70 03/11/2025 12:50 PM CDT Pulse 51 03/11/2025 12:50 PM CDT Temperature 36 C (96.8 F) 03/11/2025 12:30 PM CDT Respiratory Rate 16 03/11/2025 12:50 PM CDT Oxygen Saturation 97% 03/11/2025 12:50 PM CDT Inhaled Oxygen Concentration - - Weight 97.5 kg (215 lb) 03/11/2025 10:31 AM CDT Height 165.1 cm (5' 5) 03/11/2025 10:31 AM CDT Body Mass Index 35.78 03/11/2025 10:31 AM CDT Plan of Treatment Health Maintenance Due Date Last Done Comments Hepatitis B Screening 1973 Pneumococcal vaccine 65+ (2 of 2 - PCV) 03/31/2020 03/31/2019 Osteoporosis Screening-Bone Density Scan 04/04/2023 04/04/2021 Hemoglobin A1C 01/31/2024 08/02/2023, 04/10, 03/30/2023, Additional history exists Albumin Creatinine Ratio, Urine 03/30/2024 03/30/2023, 12/21/2021, 04/08/2019 Depression Screening 03/30/2024 03/30/2023, 03/27/2022, 04/04/2021, Additional history exists Foot Exam 03/30/2024 03/30/2023 Lipid Panel 03/30/2024 03/30/2023, 11/07, 03/28/2022, Additional history exists Well Visit 65+ 03/30/2024 03/30/2023, 03/09, 03/27/2022, Additional history exists Covid-19 Vaccine ( - 2024-2 6 season) 2025 04/22/2021, 09/10/2020, 08/21/2020 Influenza Vaccine (#1) 2025 , 04/08/2020, 07/29/2019, Additional history exists Dilated Eye Exam 05/13/2025 05/13/2024, , 07/11/2021 eGFR 07/08/2025 07/08/2024, 03/10, 01/16/2023, Additional history exists Breast Cancer Screening-Mammogram 12/29/2025 12/29/2024, 11/14/2023, 09/25/2022, Additional history exists Fall Risk Assessment 03/11/2026 03/11/2025, 03/30/2023, 03/27/2022, Additional history exists DTaP/Tdap/Td Vaccine (2 - Td or Tdap) 03/31/2029 03/31/2019 Colon Cancer Screening-Colonoscopy 03/11/2030 03/11/2025, 06/03/2019 Zoster Vaccine Completed 01/24/2018, 09/18/2017 Hepatitis C Screening Completed 04/08/2019 Colon Cancer Screening-CT Colonography Discontinued 03/11/2025, 06/03/2019 Colon Cancer Screening-DNA Stool Discontinued 03/11/20, 06/03/2019 Colon Cancer Screening-FIT Discontinued 03/11/2025, Colon Cancer Screening-Sigmoidoscopy Discontinued 03/11/2025, 06/03/2019 Medical Devices Implanted Type Area Tempering Machine Operator Device Identifier Shelf Expiration Date Model / Serial / Lot [email or web address] Lens Iol Toric Ii Posterior Biconvex Optic Single Piece Tecnis Eyhance 6.0x13.0 3.75x+21.0d Hydrophobic Acrylic [id number] - [id number] - [id number] Implanted:Qty: 1 on 04/16/2024 by Brigette Mederos MD at [facility] Advanced Medicine Lens Right: Eye [email or web address] [id number] 09/01/2024 [id number] / [id number] / 0 Rt Total Knee Arthoplasty Knee [employer] [id number] Marker Breast Biopsy Magseed L12 Cm Od18 Ga - [id number] Implanted:Qty: 2 on 08/25/2020 at [facility] [employer] 01/05/2022 [id number] / / Procedures Procedure Name Priority Date/Time Associated Diagnosis Comments SURGICAL PATHOLOGY Routine 03/11/2025 12 :12 PM CDT Screening for colorectal cancer COLONOSCOPY 03/11/2025 11:41 AM CDT COLON BIOPSY 03/11/2025 11:39 AM CDT Screening for colorectal cancer POCT GLUCOSE DEVICE Routine 03/11/2025 10:57 AM CDT SCREENING MAMMOGRAM BILATERAL W NAMAN Schedule Routine, Read Routine (OP Routine) 12/29/2024 2:36 PM CDT Screening mammogram, encounter for EGFR STAT 07/08/2024 9:47 AM AIR BRAKE MECHANIC POCT HEMOGLOBIN A1C Routine 08/02/2023 1:51 PM AIR BRAKE MECHANIC Type 2 diabetes mellitus with stage 3 [...] for Medicare annual wellness exam Asymptomatic menopause HEPATITIS C ANTIBODY Routine 04/08/2019 1:47 PM CDT Encounter for preventative adult health care examination Encounter for hepatitis C screening test for low risk patient from Last 3 Months or Most Recently Relevant to Health Maintenance Results * Surgical pathology (03/11/2025 12:12 PM CDT) Tissue (Polyp(s), colon/colorectal, esophageal, gastric) 03/11/2025 12:12 PM CDT Narrative PATHOLOGY [facility] - 03/12/2025 7:36 AM CDT [facility] results best viewed via link to PDF [facility] Terrie Urbina Laboratory of Surgical Pathology [facility] [place] [address] Note to Patients: This report may contain a detailed description of human tissue sent by a health care provider to the laboratory for pathologic evaluation. The content of this report is essential for diagnosis and may provide important critical findings. This information may be unfamiliar to patients to review without a medical professional present. It is advised that the patient review this report in the presence of a health care provider who can answer questions and explain the details. SURGICAL PATHOLOGY REPORT FINAL Patient Name: MARIA ANTONIA SINGLETON Gender: F : 1955 (Age: 69) Address: [place] [id number] Hospital #: [id number] Taken:03/11/2025 Received:03/11/2025 Reported: 03/12/2025 Patient Type: [facility] Service: Gastro Location: Physician(s): Nelia Echevarria D.O. Diagnosis: A. Large bowel, ascending colon polyp, biopsy: - Tubular adenoma nela/03/12/2025 07:36 By this signature, I attest that the above diagnosis is based upon my personal examination of the slides(and/or other material indicated in the diagnosis). Dejon Huffman MD PhD Report Electronically Reviewed and Signed Out By Dejon Huffman MD PhD 03/12/2025 07:36:59 History: The patient is a 69 year old woman presenting for screening for colorectal cancer. Operative procedure: Colon biopsy. Specimen(s) Received: A: Cold forceps, ascending colon polyp Gross Description: Received in formalin, labeled with the patient s identifiers and cold forceps ascending colon polyp and consists of one feliciano-pink fragment(s) of soft tissue measuring 0.4 cm in greatest dimension. Labeled A1. Jar 0. elsw/03/11/2025 14:54 PA(s): Ce Cedeno By this signature, I attest that the above diagnosis is based upon my personal examination of the slides(and/or other material). Addenda/Procedures The performance characteristics of some immunohistochemical stains, fluorescence in-situ hybridization tests and immunophenotyping by flow cytometry cited in this report (if any) were determined by the Surgical Pathology and Flow Cytometry Departments at [facility] as part of an ongoing water quality technician program and in compliance with federally mandated regulations drawn from the Clinical Laboratory Improvement Act of 1988 (CLIA '88). Some of these tests rely on the use of analyte specific reagents and are subject to specific labeling requirements by the US Food and Drug Administration. Such diagnostic tests may only be performed in a facility that is certified by the Department of Health and Human Services as a high complexity laboratory under CLIA '88. The FDA has determined that such clearance or approval is not necessary. This test is used for clinical purposes. It should not be regarded as investigational or for research. Nevertheless, federal rules concerning the medical use of analyte specific reagents require that the following disclaimer be attached to the report: This test was developed and its performance characteristics determined by the Surgical Pathology and Flow Cytometry Departments of [facility]. It has not been cleared or approved by the U. S. Food and Drug Administration. IMAGES AND SCANNED DOCUMENTS, IF INCLUDED, ONLY VIEWABLE IN PDF VERSION OF REPORT us Shoaib Cosme MD LAB PATHOLOGY ORDERABLES F inal Result PATHOLOGY [facility] 3rd Floor [place], [place] [phone] * Colonoscopy (03/11/2025 11:41 AM CDT) Anatomical Region Laterality Modality Other Narrative Procedure Note Shoaib Cosme MD - 03/11/2025 11:41 AM CDT [facility] Patient Name: Maria Antonia Singleton Procedure Date: 03/11/2025 11:41 AM Date of : 1955 Admit Type: Outpatient Age: 69 Gender: Female Attending MD: Shoaib Cosme M.D., Room: [facility] ENDOSCOPY ROOM 4 Note Status: Finalized Procedure: Colonoscopy Indications: High risk colon cancer surveillance: Personalhistory of adenoma less than 10 mm in size, Lastcolonoscopy: May 2019 Referring MD: Ce Barnes D.O. Providers: Shoaib Cosme M.D., Alex Kang M.D. Medicines: Monitored Anesthesia Care Complications: No immediate complications. Estimated Blood Loss: Estimated blood loss was minimal. Procedure: Pre-Anesthesia Assessment: - Immediately prior to administration ofmedications, the patient was re-assessed for adequacy to receive sedatives. - Prior to the procedure, a History and Physicalwas performed, and patient medications, allergies and sensitivities were reviewed. The patient'stolerance of previous anesthesia was reviewed. - Immediately prior to administration ofmedications, the patient was re-assessed for adequacy to receive sedatives. - The risks and benefits of the procedure and the sedation options and risks were discussed with the patient. All questions were answered and informed consent was obtained. The benefits, risks and alternatives of theprocedure and sedation were discussed and informed consentwas obtained. All questions were answered. Please referto the signed informed consent document in the medical record. The scope was passed under direct vision.The [id number] endoscope was introduced through the anus and advanced to the terminal ileum. Thebowel preparation used was GoLYTELY via split dose instruction. The colonoscopy was performed without difficulty. The patient tolerated the procedurewell. The quality of the bowel preparation was good. The quality of the bowel preparation was evaluatedusing the BBPS (Oneco Bowel Preparation Scale) withscores of: Right Colon = 2 (minor amount of residual staining, small fragments of stool and/or opaque liquid, but mucosa seen well), Transverse Colon = 2 (minor amount of residual staining, small fragmentsof stool and/or opaque liquid, but mucosa seen well)and Left Colon = 3 (entire mucosa seen well with no residual staining, small fragments of stool oropaque liquid). The total BBPS score equals 7. The bowel preparation used was GoLYTELY via split dose instruction. The entire colon was wellvisualized. Findings: The perianal and digital rectal examinations were normal. The terminal ileum appeared normal. A 3 mm sessile polyp was found in the ascending colon. The polyp was removed with a jumbo cold forceps. Resection and retrieval werecomplete. Multiple large-mouthed and medium-mouthed diverticula were found inthe sigmoid colon, transverse colon and ascending colon. The exam was otherwise without abnormality on direct and retroflexion views. No mass, AVM, colitis. Impression: - The examined portion of the ileum was normal. - One 3 mm polyp in the ascending colon, removedwith a jumbo cold forceps. Resected and retrieved. - Diverticulosis in the sigmoid colon, in the transverse colon and in the ascending colon. - The entire examined colon is normal on direct and retroflexion views. A/P: Surveillance colonoscopy (history ofadenomatous colon polyps) - Colonoscopy (06/03/19, Dr. Sheppard) - one 2 mmpolyp in the ascending colon (tubular adenoma), one 4 mm polyp in the sigmoid colon (tubular adenoma), diverticulosis - More distant colonoscopy with reported history of adenomatous colon polyps not available to me - Colonoscopy (03/11/25) - one 3 mm polyp in the ascending colon removed, diverticulosis - If no cancer surveillance/screening colonoscopyin 7 years - OK to resume Eliquis tomorrow Recommendation: - Discharge patient to home (with escort). - Resume previous diet. - Await pathology results. - Repeat colonoscopy in 7 years. - Resume Eliquis (apixaban) at prior dose tomorrow. Refer to primary physician for further adjustmentof therapy. Attending Participation: I was present and participated during the entire procedure, including non-lujan portions. Electronically signed by Shoaib Cosme M.D. Shoaib Cosme M.D. 03/11/2025 12:37:17 PM . Number of Addenda: 0 Note Initiated On: 03/11/2025 11:41 AM us Shoaib Cosme MD ENDOSCOPY PROCEDURES Final Result * POCT glucose (03/11/2025 10:57 AM CDT) Glucose, POC 97 70 - 199 mg/dL Blood 03/11/2025 10:5 7 AM CDT 03/11/2025 10:57 AM CDT Shoaib Cosme MD LAB POCT ORDERABLES - VILMA CE Final Result [facility] [place] [address] * Screening Mammogram Bilateral W Naman (12/29/2024 2:36 PM CDT) Anatomical Region Laterality Modality Breast Bilateral Mammography Impressions 12/30/2024 4:10 PM CDT Bilateral No evidence of malignancy in either breast. OVERALL BI-RADS FINAL ASSESSMENT: 1 - Negative RECOMMENDATION: Recommend bilateral annual screening mammography. Narrative 12/30/2024 4:10 PM CDT EXAMINATION: Screening Mammogram Bilateral W Naman: 12/29/2024 COMPARISON: Relevant prior studies available at the time of interpretation were reviewed. TECHNIQUE: Mammography was performed with 2D and digital breast tomosynthesis (DBT) images. CAD was utilized. BREAST PARENCHYMAL COMPOSITION: There are scattered areas of fibroglandular density. FINDINGS: Bilateral There is no suspicious mass, calcification, or architectural distortion in either breast. There have been no significant interval changes from prior studies. Self Screening Mammogram IMG MAMMO PROCEDURES Fi nal Result * (ABNORMAL) eGFR (07/08/2024 9:47 AM [employer] B[employer]KE [employer]) eGFR 49(L) >=60 mL/min/1. 73 m2 Comment: [...] last reviewed 2021. Blood 07/08/2024 9:47 AM [employer] B[employer] MECH[employer]IC 07/08/2024 9:52 AM [employer]CH[employer]IC Leon Chung MD LAB BLOOD ORDERABLES Claudette l Result [facility] [address] [facility] Department [place] [address] * POCT hemoglobin A1c (08/02/2023 1:51 PM [employer] B[employer]KE MECH[employer]IC) Hemoglobin A1C, POC 6.5 % Blood 08/02/2023 1:51 PM [employer] Adelso Padilla MD POINT OF CARE TEST ORDER BAO Final Result * Lipid panel (03/30/2023 10:53 AM CDT) Cholesterol 177 30 - 199 mg/dL [facility] Comment: Interpretive Data Ages [...] 2018. LDL, calculated 110 <=129 mg/dL [facility] Comment: Interpretive Data Ages [...] revised on 2018. Non-HDL Cholesterol 120 mg/dL [facility] Comment: Interpretive Data Ages [...] last revised on 2018. Chol/HDL ratio 3 [facility] Blood 03/30/2023 10:5 3 AM CDT 03/30/2023 2:30 PM CDT Adelso Padilla MD LAB BLOOD ORDERABLES Fin al Result Performing Organization Address [facility] de Phone Number [facility] [place] [employer] [place] [address] * Albumin Creatinine Ratio, Urine (03/30/2023 10:49 AM CDT) Albumin Ur <12.0 mg/L [facility] Comment: Interpretive Data No reference range established. Current interpretive data was last revised 2018. Creatinine Ur 24.5 mg/dL [facility] Comment: Interpretive Data No reference range established. Current interpretive data was last revised 2018. Albumin Creatinine Ratio, Ur See Comment 1 - 29 mg/g [facility] Comment:Unable to calculate Urine 03/30/2023 10:4 9 AM CDT 03/30/2023 2:30 PM CDT Adelso Padilla MD LAB URINE ORDERABLES Fin al Result Performing Organization Address [facility] de Phone Number [facility] [place] [employer] [place] [address] * Dexa Axial Skeleton Bone Density 1 [...] -2.0 is below the expected range for age. A Z-score below the expected range for age in a patient with recent fractures and/or chronic corticosteroid treatment is consistent with a diagnosis of osteoporosis. B) In post menopausal women and males over 50, comparison of the measured bone mineral density with the average value in young normal subjects (the T-score) has been found to be useful in [...] -2.0 is below the expected range for age. A Z-score below the expected range for age in a patient with recent fractures and/or chronic corticosteroid treatment is consistent with a diagnosis of osteoporosis. B) In post menopausal women and males over 50, comparison of the measured bone mineral density with the average value in young normal subjects (the T-score) has been found to be useful in [...] Floyd Vo MD, Ph.D Tray Acuna MD [facility] DXA PROCEDURES Final Result * Hepatitis C antibody (04/08/2019 1:47 PM CDT) [facility] Hep C Ab <0.1 0.0 - 0.9 s/co ratio [facility] - 01 Comment: Negative: < 0.8 Indeterminate: 0.8 - 0.9 Positive: > 0.9 The CDC recommends that a positive HCV antibody result be followed up with a HCV Nucleic Acid Amplification test (580316). Blood specimen (specimen) 04/08/2019 1:47 PM CDT 04/08/2019 Narrative [facility] - 04/09/2019 1:08 PM CDT Performed at: - [address] [id number] [employer] Operator: Kailash Price PhD, Phone: [phone] us Tray Acuna MD LAB MICROBIOLOGY - GENERAL ORDERABLES Final Result [facility] - from Last 3 Months or Most Recently Relevant to Health Maintenance Insurance [employer] CHO[employer] PPO [facility] ADVANTAGE CHOICE PPO [facility] ADVANTAGE CHOICE PPO [facility] ADVANTAGE CHOICE PPO Advance Directives For more information, please contact: [phone] * Full Code (Latest Code Status on File) Date Activated Date Inactivated Comments 03/11/2025 10:19 AM 03/11/2025 5:27 PM * Full Code Date Activated Date Inactivated Comments 07/08/2024 12:58 PM 07/09/2024 4:44 AM * Full Code Date Activated Date Inactivated Comments 05/09/2022 1:00 AM 05/12/2022 7:57 PM * Full Code Date Activated Date Inactivated Comments 06/03/2019 12:45 PM 06/03/2019 7:29 PM Care Teams Newspaper Or Periodical Editor Relationship Specialty Start Date End Date Ce Barnes DO [facility] [address] [place] [address] PCP - General Family Medicine 04/02/24 Jenna Villatoro MD Referring Physician Obstetrics and Gynecology 03/31/19 Harjinder Holloway MD Referring Physician Orthopedic Surgery 04/04/21 Leon Chung MD [address] [place] [address] Consulting Physician Cardiology 01/28/25
[2025-03-25 14:06] LABS: Hematocrit 43.2 % (37.0-47.0); Hemoglobin 13.7 g/dL (12.0-15.0); Immature Granulocyte Percent A 0.2 % (0-0.5); Lymphocytes Absolute Auto 1.47 K/mm3 (0.9-3.2); Mean Corpuscular HGB Conc 31.7 g/dl (32-36); Mean Corpuscular Hemoglobin 30.2 pg (26-34); Mean Corpuscular Volume 95.2 fl (80-100); Nucleated Red Blood Cells Absolute Auto 0.000 K/mm3 (0.0-0.012); Nucleated Red Blood Cells Perc 0.0 % (0.0-0.2); Platelet Count Result 236 k/mm3 (150-375); Red Blood Count 4.54 M/mm3 (4.2-5.4); White Blood Count 5.2 K/mm3 (4.5-10.0)
[2025-03-25 15:14] LABS: Alanine Aminotransferase 13 U/L (6-35); Albumin Level 3.9 g/dL (3.5-5.1); Alkaline Phosphatase 84 U/L (38-126); Anion Gap 4 mmol/L (4-12); Aspartate Amino Transferase 31 U/L (14-36); Bilirubin,Total 0.4 mg/dL (0.2-1.3); Blood Urea Nitrogen 21 mg/dL (7-17); Calcium 9.0 mg/dL (8.4-10.2); Carbon Dioxide 26 mmol/L (22-30); Chloride 110 mmol/L (98-107); Estimated Glomerular Filt Rate 43; Glucose 119 mg/dL (65-110); Potassium 4.5 mmol/L (3.4-5.0); Sodium 140 mmol/L (137-145); Total Protein 7.2 g/dL (6.3-8.2)
[2025-03-25 16:44] LABS: Hemoglobin A1C 6.7 % (<5.7)
== END 2025-03-25 10:08 | disposition home or self-care (01) ==
LOC: ANHGOSHLAB 10:08
PROVIDERS: PCP Nurse Practitioner; Visit Provider Family Medicine
DX: E11.22 Type 2 diabetes mellitus with diabetic chronic kidney disease (principal); N18.30 Chronic kidney disease, stage 3 unspecified
CPT/HCPCS: 36415; 80053; 82306; 83036; 84100; 85025